=== PATIENT | female | born 1935 | race Caucasian/White ===

== ENCOUNTER 2016-03-28 08:45 | Day surgery (SDC) ==
[2015-12-02 07:55] VITALS: BMI 28.3
[2016-03-28] MEDS ORDERED: LIDOCAINE 1% 20 ML MDV ID ONE (09:05)
[2016-03-28] MEDS ORDERED: VERSED ONE (10:35)
[2016-03-28] MEDS ORDERED: DIPRIVAN 20 ML VIAL IVP ONE (10:35)
[2016-03-28 12:35] VITALS: BP 132/72; TEMP 98.5
--- NOTE | 2016-03-29 07:21 | OP ---
INDICATIONS FOR PROCEDURE: 81-year-old female presents for endoscopy. She has a history of Figueroa's. She is also scheduled for a screening colonoscopy. MEDICATIONS: SEE ANESTHESIA NOTES. PROCEDURE: 1. ENDOSCOPY, ESOPHAGEAL BIOPSY 2. COLONOSCOPY, SNARE POLYPECTOMY REPORT: The risks, benefits, alternatives and limitations were discussed in detail with the patient. Informed consent was obtained. After adequate sedation was achieved, the video endoscope was introduced in the posterior pharynx and esophagus under direct visual guidance. I easily advanced down to the second portion of the duodenum. I then slowly withdrew. The duodenal mucosa appeared unremarkable as did the duodenal bulb. The antrum and body were relatively unremarkable. The scope was retroflexed to look at the cardia and fundus, which was unremarkable. We see a small Schatzki's ring at the GE junction. The scope was anteflexed and withdrawn back through the esophagus. The GE junction was at the top of the gastric folds right at the diaphragmatic hiatus. I obtained four quadrant biopsies but there was no evidence of Figueroa's. The esophagus was otherwise unremarkable. The patient tolerated the procedure well with stable vital signs and pulse oximetry throughout. The patient's bed was turned. A digital rectal exam revealed good tone, no masses. The colonoscope was introduced in to the rectum and advanced under direct visual guidance to the cecum. The cecum was identified by the appendiceal orifice and IC valve. I then slowly withdrew the scope in a circumferential manner examining the mucosa quite carefully. I looked on the proximal and distal side of folds and flexures as best as possible. I was able to retroflex the scope in the right colon and left colon to increase visualization. At the proximal transverse colon, there are two 5 mm sessile polyps side by side. I removed these by snare technique. The remaining colon appeared unremarkable including on retroflex view of the anal canal. The prep was good. The withdrawal time was 11 minutes and 0 seconds. The patient tolerated the procedure well with stable vital signs and pulse oximetry throughout. IMPRESSION: 1. SCHATZKI'S RING 2. OTHERWISE NORMAL ENDOSCOPY WITH NO VISUAL EVIDENCE OF FIGUEROA'S 3. TWO (2) SMALL COLON POLYPS REMOVED RECOMMENDATIONS: 1. Reflux precautions. 2. Await esophageal biopsy results. If there is no evidence of atypia or dysplasia, I recommend no further surveillance endoscopy examinations given her advanced age and health. Recommend procedures only on an as needed basis. 3. Await colon polyp pathology. If it is benign, I also recommend future colonoscopies on an as needed only basis given her advanced age and health. 4. Will see her back in the office as needed. CC: DR. FLOYD SMITH
== END 2016-03-28 12:40 | disposition home or self-care (01) ==
LOC: SURG 08:45
PROVIDERS: ATTEND Internal Medicine Gastroenterology
DX: Z12.11 Encounter for screening for malignant neoplasm of colon (principal); D12.3 Benign neoplasm of transverse colon; D13.1 Benign neoplasm of stomach; K22.2 Esophageal obstruction; K29.60 Other gastritis without bleeding; Z87.09 Personal history of other diseases of the respiratory system

== ENCOUNTER 2016-05-12 08:05 | Emergency (ER) ==
[2016-05-12 08:13] VITALS: BP 173/85; TEMP 100.2; BMI 30.1
--- NOTE | 2016-05-12 08:48 | ED.PDOC ---
General ED Provider: Dr. HENRIQUE BARRIENTOS Chief Complaint: Fall Stated Complaint: Fell off of the bed while getting out of it, hurt left ribs and back Time Seen by Physician: 08:46 Mode of Arrival: Wheelchair Information Source: Patient Primary Care Provider: TARA QUESADA Nursing and Triage Documentation Reviewed and Agree: Yes Trauma/Injury Complaint Exam - Truncal Trauma Complaint/Exam Location of Pain: Reports: Left, Lower, Chest, Abdomen Symptoms Are: Still present Onset of Pain: Reports: Immediate Initial Severity: Moderate Current Severity: Moderate Mechanism: Reports: Blunt trauma Aggravating: Reports: Movement Alleviating: Reports: None Associated Signs and Symptoms: Reports: Chest pain. Denies: Short of air, Cough , Hematuria, Abdominal pain, Fever, Nausea, Vomiting Related Surgical History: Reports: None Vertebral Tenderness Present: Yes Vertebral Deformity Present: No Trachial Deviation Present: No JVD Present: No Crepitus Present: No Diminished Breath Sounds: No Muffled Heart Sounds Present: No Paradoxical Chest Wall Movement Present: No Abdominal Guarding Present: No Skin Findings: Present: Contusion (left lower rib) Differential Diagnoses: Chest Wall Abrasion, Rib Fracture, Lumbar Strain Review of Systems - Review Of Systems Constitutional: Reports: No symptoms Eyes: Reports: No symptoms Ears, Nose, Mouth, Throat: Reports: No symptoms Respiratory: Reports: No symptoms Cardiac: Reports: No symptoms GI: Reports: No symptoms : Reports: No symptoms Musculoskeletal: Reports: Joint pain, Joint swelling Skin: Reports: No symptoms Neurological: Reports: No symptoms Endocrine: Reports: No symptoms Hematologic/Lymphatic: Reports: No symptoms All Other Systems: Reviewed and Negative Past Medical History - Past Medical History Previously Healthy: No Endocrine: Reports: Dyslipidemia Cardiovascular: Reports: Hypertension, 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, 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) Respiratory: Reports: Other (SINUS CONGESTION- ALLERGIES) Hematological: Reports: None Gastrointestinal: Reports: GERD (BARRETTS), Other (agarwal's espophagus) Genitourinary: Reports: Unknown Neuro/Psych: Reports: Anxiety, Depression, Other (NEUROPATHY) Musculoskeletal: Reports: Arthritis, Other (hip bursitis) Cancer: Reports: Other (PolyPs out of neck of bladder) Last Menstrual Period: menopause Other Pertinent Past Medical History: hip bursitis - Surgical History General Surgical History: Reports: Tonsillectomy - Family History Family History: Reports: Other (EXHUSBAND WAS HEAVY SMOKER) - Social History Smoking Status: Never smoker Hx Substance Use: No Alcohol Screening: None Physical Exam - Physical Exam Appearance: Ill-appearing Eyes: DG, EOMI, Conjunctiva clear ENT: Ears normal, Nose normal, Oropharynx normal Respiratory: Airway patent, Breath sounds clear, Breath sounds equal, Respirations nonlabored Cardiovascular: RRR, Pulses normal, No rub, No murmur GI/: Soft, Tender (left lower rib) Musculoskeletal: Normal strength, ROM intact, No edema, No calf tenderness Skin: Warm, Dry, Normal color Neurological: Sensation intact, Motor intact, Reflexes intact, Cranial nerves intact, Alert, Oriented Psychiatric: Affect appropriate, Mood appropriate Interpretation - Radiology Interpretation Radiology Interpretation By: Radiologist Radiology Results: Negative Exam Interpreted: CT Scan Critical Care Note - Critical Care Note Total Time (mins): 0 Course - Course Hematology/Chemistry: 05/12/16 09:05 05/12/16 09:05 Orders, Labs, Meds: Lab Review 05/12/16 05/12/16 09:05 10:37 WBC 7.71 RBC 3.75 L Hgb 12.1 Hct 36.8 L MCV 98.1 MCH 32.3 H MCHC 32.9 RDW Coeff of Christopher 12.9 Plt Count 172 Immature Gran % (Auto) 0.4 Neut % (Auto) 61.9 Lymph % (Auto) 30.1 Kane % (Auto) 6.1 Eos % (Auto) 1.0 Baso % (Auto) 0.5 Immature Gran # (Auto) 0.0 Neut # 4.8 Lymph # 2.3 Kane # 0.5 Eos # 0.1 Baso # 0.0 Sodium 145 Potassium 5.8 H Chloride 107 Carbon Dioxide 27 Anion Gap 16.8 BUN 26 H Creatinine 1.52 H Estimated GFR (MDRD) 33.00 BUN/Creatinine Ratio 17.10 Glucose 108 Calcium 9.5 Total Bilirubin 0.68 AST 21 ALT 13 Alkaline Phosphatase 47 L Total Protein 7.0 Albumin 3.7 Globulin 3.3 Albumin/Globulin Ratio 1.12 Urine Color Yellow Urine Clarity Clear Urine pH 8.5 Ur Specific [place] 1.015 Urine Protein Trace Urine Glucose (UA) Negative Urine Ketones Negative Urine Blood Negative Urine Nitrite Negative Urine Bilirubin Negative Urine Urobilinogen 0.2 Ur Leukocyte Esterase Negative Urine Microscopic RBC 2-5 Urine Microscopic WBC 0-2 Ur Squamous Epith Cells 2-5 Orders Category Date Time Status CBC W/ AUTO DIFF Stat LAB 05/12/16 09:05 Completed CMP [COMPREHENSIVE METABOLIC PANEL] Stat LAB 05/12/16 09:05 Completed UA [URINALYSIS C & S IF INDICATED] Stat LAB 05/12/16 10:37 Completed Ketorolac Tromethamine [Toradol] MEDS 05/12/16 08:49 Discontinued 60 mg IM ONCE STA Sodium Polystyrene Sulfonate [Kayexalate Susp] MEDS 05/12/16 12:46 Discontinued 30 gm PO ONCE STA CT CHEST W/O CONTRAST Stat RADS 05/12/16 08:[address] HEAD W/O CONTRAST Stat RADS 05/12/16 08:[address] LUMBAR SPINE W/O CONTRAST Stat RADS 05/12/16 08:[address] THORACIC SPINE W/O CONTRAST Stat RADS 05/12/16 08:47 Completed Medications Discontinued Medications Generic Name Dose Route Start Last Admin Trade Name Freq PRN Reason Stop Dose Admin Ketorolac Tromethamine 60 mg 05/12/16 08:49 05/12/16 09:16 Toradol IM 05/12/16 08:50 60 mg ONCE STA Administration Sodium Polystyrene Sulfonate 30 gm 05/12/16 12:46 Kayexalate Susp PO 05/12/16 12:47 ONCE STA Vital Signs: Temp Pulse Resp BP Pulse Ox 05/12/16 08:05 100.2 F H 65 20 173/85 H 94 L Departure - Departure Time of Disposition: 13:18 Disposition: HOME SELF-CARE Discharge Problem: Falls Contusion of rib on left side Qualifiers: Encounter type: initial encounter Qualifier Code: (S20.212A) Contusion of left front wall of thorax, initial encounter Instructions: Rib Contusion (ED) Condition: Stable Pt referred to PMD for follow-up: Yes Additional Instructions: increase hydration f/u in office on sunday Allergies/Adverse Reactions: Allergies iodine Allergy (Verified 05/12/16 08:15) sulfamethoxazole [From Bactrim] Adverse Reaction (Verified 05/12/16 08:15) trimethoprim [From Bactrim] Adverse Reaction (Verified 05/12/16 08:15) Home Medications: Ambulatory Orders Aspirin [Aspirin Chewable] 81 mg PO DAILY 08/25/12 Clonazepam [Klonopin] 1 mg PO BID 08/25/12 Diltiazem HCl [Diltiazem 24Hr Cd] 240 mg PO DAILY 08/25/12 Esomeprazole Magnesium [Nexium] 40 mg PO DAILY 08/25/12 Ezetimibe [Zetia] 10 mg PO DAILY 08/25/12 Furosemide [Lasix Tab] 40 mg PO DAILY 08/25/12 Lisinopril [Zestril] 20 mg PO BID 08/25/12 Rosuvastatin Calcium [Crestor] 40 mg PO DAILY 05/03/14 Meloxicam [Mobic] 7.5 mg PO DAILY 01/04/15 [place]-3 Fatty Acids/Fish Oil [Fish Oil 1,000 mg Softgel] 1,200 mg PO DAILY 01/04 Amitrip HCl/Chlordiazepoxide [Chlordiazepo-Amitriptyl 5-12.5] 0.5 each PO BEDTIME 12/02/15 Calcium Carbonate/Vitamin D3 [Calcium 500-Vit D3 400 Tablet] 1 each PO DAILY 11/08 Potassium Chloride [K-Dur] 10 meq PO BEDTIME 03/28/16 Disposition Discussed With: Patient
[2016-05-12] MEDS ORDERED: TORADOL IM STA (08:49)
[2016-05-12 09:12] LABS: BASOPHILS % (AUTO) 0.5 % (0.0-3.0); EOSINOPHILS # (AUTO) 0.1 K/ul (0.0-0.7); HEMATOCRIT 36.8 % (37.0-47.0); HEMOGLOBIN 12.1 g/dl (12.0-16.0); IMMATURE GRANULOCYTE % (AUTO) 0.4 % (0.0-5.0); LYMPHOCYTES # (AUTO) 2.3 K/uL (0.60-3.4); LYMPHOCYTES % (AUTO) 30.1 (10.0-50.0); MEAN CORPUSCULAR HEMOGLOBIN 32.3 pg (27.0-31.0); MEAN CORPUSCULAR HGB CONC 32.9 (31.8-35.4); MEAN CORPUSCULAR VOLUME 98.1 fl (81.0-99.0); MONOCYTES # (AUTO) 0.5 K/uL (0.4-2.0); MONOCYTES % (AUTO) 6.1 (0-10); NEUTROPHILS # (AUTO) 4.8 K/ul (2.0-6.9); NEUTROPHILS % (AUTO) 61.9; PLATELET COUNT 172 10^3/uL (140-440); RED BLOOD COUNT 3.75 10^6/ul (4.20-5.40); WHITE BLOOD COUNT 7.71 K/ul (4.6-10.2)
--- NOTE | 2016-05-12 09:30 | CT ---
EXAM: CT BRAIN HISTORY: Injury, pain TECHNIQUE: CT brain without intravenous contrast. 5-mm axial sections with Reformations. COMPARISON: 10/19/2008 FINDINGS: Brain is unremarkable without distinct evidence of hemorrhage or large vessel distribution recent ischemic infarction. There is no suggestion of acute hydrocephalus or subdural fluid collection. N o mass or mass effect. Cranium is within normal limits. Mastoid air cells are aerated. The visualized paranasal sinuses are clear. IMPRESSION: No acute intracranial process. No skull fracture.
[2016-05-12 09:32] LABS: ALBUMIN 3.7 g/dL (3.4-5.0); ALBUMIN/GLOBULIN RATIO 1.12; ANION GAP 16.8; BILIRUBIN,TOTAL 0.68 mg/dL (0.00-1.20); BUN/CREATININE RATIO 17.1; CALCIUM 9.5 mg/dL (8.2-10.2); CREATININE 1.52 mg/dL (0.60-1.30); POTASSIUM 5.8 mmol/L (3.5-5.10)
--- NOTE | 2016-05-12 09:36 | CT ---
EXAM: CT thoracic spine without contrast HISTORY: Injury and pain COMPARISON: None TECHNIQUE: CT thoracic spine performed without intravenous contrast. Coronal and sagittal reformat brigida images obtained. FINDINGS: Bones appear demineralized. Vertebral bodies normal in height. No fracture. No subluxa tion. Mild chronic discogenic degenerative disease with mild multilevel intervertebral space narrow ing and marginal osteophyte formation. Please see separate port CT lumbar spine in the degenerative changes in the lumbar spine. Central canal grossly patent. Please see separate report CT chest. IMPRESSION: 1. No fracture or subluxation. 2. Chronic discogenic degenerative disease. 3. Bones appear demineralized.
--- NOTE | 2016-05-12 09:38 | CT ---
EXAM: CT LUMBAR SPINE HISTORY: Injury, pain TECHNIQUE: CT lumbar spine without contrast. 3-mm axial sections. Coronal and sagittal reformatio ns. COMPARISON: No comparison CT lumbar spine. FINDINGS: Bones appear demineralized. There is moderate to severe degenerative disc and facet disease diffuse ly, most apparent at L2/L3 where there is endplate sclerosis and loss of intervertebral disc space. Minimal erosions of the endplates are seen at this level. These degenerative changes lead to multilevel central and neural foraminal stenosis with the central canal stenosis most apparent at L2/L3, L3/L4 and L4/L5. The L4/L5 level has severe stenosis of the central canal and left neural foramen. No loss of vertebral body height or acute fracture is identified. There is scoliosis convex to the left. Sacroiliac joints are intact. No paraspinal fluid collection is identified. Incidental note of moderate atherosclerotic disease. IMPRESSION: 1. No acute fracture or subluxation. 2. Severe degenerative disc and facet disease. 3. Additional findings at the L2/L3 interspace as described above (first paragraph of report) are a lso likely related to the longstanding degenerative process. Correlate with patient history and phy sical exam for any evidence of osteomyelitis or diskitis. If indicated, MRI correlation can be cons idered.
--- NOTE | 2016-05-12 09:39 | CT ---
EXAM: CT chest without contrast HISTORY: Injury COMPARISON: CT thoracic spine same day and Chest x-ray 12/02/[address] abdomen 01/26/2014 TECHNIQUE: Serial axial images of the chest were obtained from the lung apices to the upper abdomen without contrast. These were viewed in multiple planes. FINDINGS: The thyroid is normal. The ascending aorta is ectatic with mild enlargement of the pulmo nary arteries. There are coronary arterial calcifications present. The heart is normal in size wit hout pericardial effusion. There are no pathologically enlarged mediastinal or hilar lymph nodes. There is no pneumothorax or pleural effusion. There is a right perifissural 0.3 cm ground-glass nod ule on image 24. There is lobular nodularity in the right lower lobe measuring 0.6 cm in diameter. This is seen on image 35 axially. No additional nodule, consolidation or ground-glass is present. The airways are patent. The osseous structures demonstrate no rib fracture or compression deformity and degenerative disease . Thoracic spine is better evaluated on same day CT spine. Soft tissues in the upper abdomen are b keny visualized on same day CT abdomen pelvis. IMPRESSION: 1. No acute abnormality or traumatic injury/fracture of the chest. 2. Mild ascending aortic ectasia and enlarged pulmonary arteries. 3. Pulmonary nodules as described above with the largest in the right lower lobe measuring 0.6 cm i n diameter was not visualized on prior exam 2013. CT chest is recommended in 6 - 12 months to [facility] evaluate.
[2016-05-12 10:41] LABS: BILIRUBIN,URINE Negative (NEGATIVE); KETONES,URINE Negative (NEGATIVE); LEUKOCYTE ESTERASE ,URINE Negative (NEGATIVE); NITRITE,URINE Negative (NEGATIVE); PH,URINE 8.5 (5-9); PROTEIN,URINE Trace (NEGATIVE); URINE, BLOOD Negative (NEGATIVE)
[2016-05-12 10:45] LABS: ADD URINE MICROSCOPIC YES
[2016-05-12] MEDS ORDERED: KAYEXALATE SUSP PO STA (12:46)
== END 2016-05-12 13:44 | disposition home or self-care (01) ==
LOC: ED 08:05
DX: S20.212A Contusion of left front wall of thorax, initial encounter (principal); M54.9 Dorsalgia, unspecified; R10.9 Unspecified abdominal pain; M25.50 Pain in unspecified joint; M25.40 Effusion, unspecified joint; I10 Essential (primary) hypertension; Z79.899 Other long term (current) drug therapy; W06.XXXA Fall from bed, initial encounter
CPT/HCPCS: 36415; 80053; 81001; 85025; 96372; 99283

== ENCOUNTER 2016-05-15 11:04 | Outpatient (CLI) ==
[2012-08-28 04:01] VITALS: TEMP 97.7
[2016-05-15 11:58] LABS: ALBUMIN 3.6 g/dL (3.4-5.0); ALBUMIN/GLOBULIN RATIO 1.2; BILIRUBIN,TOTAL 0.61 mg/dL (0.00-1.20); BUN/CREATININE RATIO 15.43; CALCIUM 8.6 mg/dL (8.2-10.2); CREATININE 1.49 mg/dL (0.60-1.30); TOTAL PROTEIN 6.6 g/dL (5.8-8.1)
== END 2016-05-15 11:05 | disposition home or self-care (01) ==
LOC: LAB 11:04
PROVIDERS: ATTEND Emergency Medicine
DX: E87.5 Hyperkalemia (principal); N18.9 Chronic kidney disease, unspecified
CPT/HCPCS: 36415; 80053

== ENCOUNTER 2016-11-29 10:47 | Observation (INO) ==
[2016-11-29] MEDS ORDERED: MORPHINE 4 MG/ML SYRINGE IVP PRN (11:03)
[2016-11-29] MEDS ORDERED: TYLENOL PO PRN (11:03)
[2016-11-29] MEDS ORDERED: ATROPINE SULFATE PFS IVP PRN (11:03)
[2016-11-29] MEDS ORDERED: VISTARIL INJ IM PRN (11:03)
[2016-11-29] MEDS ORDERED: NITROSTAT SL PRN (11:03)
[2016-11-29 11:23] VITALS: BMI 27.6
[2016-11-29 11:40] LABS: BASOPHILS % (AUTO) 0.3 % (0.0-3.0); EOSINOPHILS # (AUTO) 0.1 K/ul (0.0-0.7); EOSINOPHILS % (AUTO) 1.4 % (0.0-7.0); HEMATOCRIT 37.2 % (37.0-47.0); HEMOGLOBIN 12.5 g/dl (12.0-16.0); IMMATURE GRANULOCYTE % (AUTO) 0.3 % (0.0-5.0); LYMPHOCYTES # (AUTO) 2.7 K/uL (0.60-3.4); LYMPHOCYTES % (AUTO) 38.9 (10.0-50.0); MEAN CORPUSCULAR HEMOGLOBIN 33.1 pg (27.0-31.0); MEAN CORPUSCULAR HGB CONC 33.6 (31.8-35.4); MEAN CORPUSCULAR VOLUME 98.4 fl (81.0-99.0); MONOCYTES # (AUTO) 0.6 K/uL (0.4-2.0); MONOCYTES % (AUTO) 8.3 (0-10); NEUTROPHILS # (AUTO) 3.5 K/ul (2.0-6.9); NEUTROPHILS % (AUTO) 50.8; PLATELET COUNT 218 10^3/uL (140-440); RED BLOOD COUNT 3.78 10^6/ul (4.20-5.40); WHITE BLOOD COUNT 6.96 K/ul (4.6-10.2)
[2016-11-29 11:50] LABS: ABG BASE EXCESS 2 (-2.0-2.0); ABG HCO3 26.7 (22.0-26.0); ABG PCO2 40.3 mmHg (35-45); ABG PH 7.429 (7.35-7.45); ABG TCO2 28 (22.0-28.0)
[2016-11-29] MEDS ORDERED: NON-FORMULARY MEDICATION (Omega-3 Fatty Acids/Fish Oil [Fish Oil 1,000 Mg Softgel] 1,000 M PO SCH ×22 (12:00)
[2016-11-29 12:27] LABS: ALBUMIN 3.6 g/dL (3.4-5.0); ALBUMIN/GLOBULIN RATIO 1.06; ANION GAP 13.9; BILIRUBIN,TOTAL 0.61 mg/dL (0.00-1.20); BUN/CREATININE RATIO 19.16; CALCIUM 9.4 mg/dL (8.2-10.2); CREATININE 1.2 mg/dL (0.60-1.30); POTASSIUM 3.9 mmol/L (3.5-5.10); TROPONIN I 0.013 ng/ml (0.0000-0.4000)
[2016-11-29] MEDS ORDERED: CALCIUM 500 + VIT D 200 MG TABLET PO SCH (12:30)
[2016-11-29] MEDS ORDERED: OMEGA-3 FISH OIL PO SCH (12:30)
--- NOTE | 2016-11-29 14:26 | DI ---
EXAM: PA and lateral views of the chest HISTORY: Cough. COMPARISON: Chest x-ray 12/02/[address] chest 05/12/2016 FINDINGS: The cardiomediastinal silhouette is normal. There is no pneumothorax or pleural effusion . There is no consolidation, nodule or mass. The osseous structures are unremarkable. IMPRESSION: No acute cardiopulmonary process or consolidation
--- NOTE | 2016-11-29 15:12 | US ---
EXAM: Ultrasound bilateral carotid duplex. HISTORY: Syncope. COMPARISON: 10/27/2015. TECHNIQUE: Multiple ferreira scale and color Doppler images were obtained. FINDINGS: Please note that estimates of internal carotid artery stenoses are based upon NASCET tianna joyce. Right carotid: No significant plaquing identified. Peak systolic velocity measurement in the right internal carotid artery is 0.7 meters per second. Right internal to common carotid artery peak sys tolic velocity ratio measures 1.8. End diastolic velocity measurement in the right internal carotid artery is 0.1 meters per second. Flow in the right vertebral artery is not identified. Left carotid: Mild plaquing noted without 50% or greater stenosis. Peak systolic velocity measurem ent in the left internal carotid artery is 0.9 meters per second. Left internal to common carotid a rtery peak systolic velocity ratio measures 9.4. End diastolic velocity measurement in the left int ernal carotid artery measures 0.3 meters per second. Flow in the left vertebral artery is antegrade . IMPRESSION: 1. No evidence for 50% or greater stenosis in the right or left internal carotid artery. 2. Nonvisualized right vertebral artery which could be technical. Occlusion or stenosis not exclud ed. This finding is stable. 3. Antegrade flow in the left vertebral artery..
--- NOTE | 2016-11-29 15:15 | DI ---
EXAM: Three views of the right lateral ribs HISTORY: Fall with right-sided rib pain. COMPARISON: Chest x-ray 11/23/2007 FINDINGS: There is no cortical irregularity or displaced fracture of the right ribs. The adjacent s oft tissues are unremarkable. IMPRESSION: No visualized rib fracture.
--- NOTE | 2016-11-29 16:18 | MRI ---
EXAM: Brain MRI with and without contrast. HISTORY: Syncope. COMPARISON: Head CT 05/12/2016 and brain MRI 10/27/2015. TECHNIQUE: Multiplanar, multisequence MR images were acquired of the brain before and after adminis tration of intravenous contrast. FINDINGS: The midline structures are central and the craniocervical junction is unremarkable. The ventricles, sulci and cisterns are prominent compatible with age related involutional changes. Ther e are no abnormal extra-axial fluid collections. The brain parenchyma has no diffusion restriction to suggest acute hypoperfusion or infarction. The re are small scattered T2 hyperintensities in the supratentorial white matter consistent with minor leukomalacia. There is no abnormal dark gradient echo signal. After administration of contrast, no enhancing lesions are identified. The corpus callosum has a normal configuration. The pituitary g land is unremarkable. There are no intraorbital masses. There has been previous lens surgery bilaterally. There is exten sive hyperostosis frontalis interna. There is fatty infiltration of the parotid glands bilaterally. Rightward nasal septal deviation is present. The frontal sinus is hypoplastic. Paranasal sinuses are otherwise unremarkable. There is minor scattered mucosal thickening in some of the right mastoid air cells. There is no abnormal co ntrast enhancement in the internal auditory canals labyrinthine structures. Flow voids are present in the major intracranial arteries and dural venous sinuses. The superior sa gittal sinus preferentially drains into the right transverse dural sinus, sigmoid sinus and internal jugular vein which are dominant to the left. This is a common normal variant. There is upper cervical hypertrophic facet arthropathy. IMPRESSION: 1. No intracranial mass, hemorrhage or acute cerebral infarct. 2. Age related involutional changes and minor chronic ischemic small vessel disease. 3. Extensive benign hyperostosis frontalis interna.
[2016-11-29 19:40] LABS: TROPONIN I 0.025 ng/ml (0.0000-0.4000)
[2016-11-29] MEDS: ZESTRIL PO SCH (20:38)
[2016-11-29] MEDS: KLONOPIN PO SCH (20:39)
[2016-11-29 20:55] LABS: BILIRUBIN,URINE Negative (NEGATIVE); KETONES,URINE Negative (NEGATIVE); LEUKOCYTE ESTERASE ,URINE Trace (NEGATIVE); NITRITE,URINE Negative (NEGATIVE); PROTEIN,URINE Trace (NEGATIVE); URINE, BLOOD Trace-intact (NEGATIVE)
[2016-11-29] MEDS ORDERED: CRESTOR PO SCH (21:00)
[2016-11-29] MEDS ORDERED: ELAVIL PO SCH (21:00)
[2016-11-29] MEDS ORDERED: MOTRIN PO ONE (21:00)
[2016-11-29] MEDS ORDERED: NON-FORMULARY MEDICATION (Rosuvastatin Calcium [Crestor] 40 MG) PO SCH (21:00)
[2016-11-29 21:08] LABS: ADD URINE MICROSCOPIC YES
[2016-11-30 05:47] LABS: BASOPHILS % (AUTO) 0.5 % (0.0-3.0); EOSINOPHILS # (AUTO) 0.1 K/ul (0.0-0.7); EOSINOPHILS % (AUTO) 1.8 % (0.0-7.0); HEMATOCRIT 34.1 % (37.0-47.0); HEMOGLOBIN 11.4 g/dl (12.0-16.0); IMMATURE GRANULOCYTE % (AUTO) 0.3 % (0.0-5.0); LYMPHOCYTES # (AUTO) 2.6 K/uL (0.60-3.4); LYMPHOCYTES % (AUTO) 40.7 (10.0-50.0); MEAN CORPUSCULAR HEMOGLOBIN 33.1 pg (27.0-31.0); MEAN CORPUSCULAR HGB CONC 33.4 (31.8-35.4); MEAN CORPUSCULAR VOLUME 99.1 fl (81.0-99.0); MONOCYTES # (AUTO) 0.7 K/uL (0.4-2.0); MONOCYTES % (AUTO) 10.3 (0-10); NEUTROPHILS % (AUTO) 46.4; PLATELET COUNT 188 10^3/uL (140-440); RED BLOOD COUNT 3.44 10^6/ul (4.20-5.40); WHITE BLOOD COUNT 6.49 K/ul (4.6-10.2)
[2016-11-30 06:08] LABS: ALBUMIN/GLOBULIN RATIO 1.07; ANION GAP 16.9; BILIRUBIN,TOTAL 0.43 mg/dL (0.00-1.20); BUN/CREATININE RATIO 21.09; CALCIUM 8.9 mg/dL (8.2-10.2); CREATININE 1.28 mg/dL (0.60-1.30); POTASSIUM 3.9 mmol/L (3.5-5.10); TOTAL PROTEIN 5.8 g/dL (5.8-8.1)
[2016-11-30] MEDS ORDERED: LASIX TAB PO SCH (06:30)
[2016-11-30] MEDS ORDERED: PROTONIX PO SCH (06:30)
[2016-11-30] MEDS ORDERED: ASPIRIN EC PO SCH (08:00)
[2016-11-30] MEDS ORDERED: MOTRIN PO PRN (08:33)
[2016-11-30] MEDS ORDERED: ASPIRIN CHEWABLE PO SCH (09:00)
[2016-11-30] MEDS ORDERED: CARDIZEM CD PO SCH (09:00)
[2016-11-30] MEDS ORDERED: NON-FORMULARY MEDICATION (Calcium Carbonate/Vitamin D3 [Calcium 500-Vit D3 400 Tablet] 1 E PO SCH (09:00)
[2016-11-30] MEDS ORDERED: ZETIA PO SCH (09:00)
[2016-11-30] MEDS ORDERED: NON-FORMULARY MEDICATION (Esomeprazole Magnesium [Nexium] 40 MG) PO SCH ×22 (09:00)
[2016-11-30] MEDS ORDERED: NON-FORMULARY MEDICATION (Diltiazem Hcl [Diltiazem 24hr Cd] 240 MG) PO SCH ×22 (09:00)
[2016-11-30] MEDS ORDERED: NON-FORMULARY MEDICATION PO SCH ×44 (10:15→21:00)
--- NOTE | 2016-11-30 10:34 | PCM.PROG ---
Attending Provider: ATTENDING PROVIDER: Dr. TARA QUESADA DATE OF SERVICE: 11/30/16 SUBJECTIVE: This 81 year old WHITE/ F was hospitalized 11/29/16. The patient is seen with Jennifer, Nurse Practitioner. The patient is lying in bed, alert. She says she has been feeling well but has a headache this morning. Telemetry shows lowest kelsea to be 52 beats/min. REVIEW OF SYSTEMS: CONSTITUTIONAL: No night sweats. No fatigue, malaise, lethargy. No fever or chills. HEENT: Eyes: No visual changes. No eye pain. No eye discharge. ENT: No runny nose. No epistaxis. No sinus pain. No odynophagia. No congestion. RESPIRATORY: No cough, no congestion. No hemoptysis. No shortness of breath. CARDIOVASCULAR: No angina symptoms. No CHF symptoms. No atypical chest pain for CAD. No palpitations. No orthopnea.. GASTROINTESTINAL: No abdominal pain. No nausea or vomiting. No diarrhea or constipation. No hematemesis. No hematochezia. GENITOURINARY: No urgency. No frequency. No dysuria. No hematuria. No obstructive symptoms. No discharge. No pain. No significant abnormal bleeding. MUSCULOSKELETAL: No musculoskeletal pain; no joint swelling. NEUROLOGICAL: Positive for headache. Awake, alert, oriented to time, place and person. No neck pain. No syncope. No seizures. No dizziness. PSYCHIATRIC: Not anxious. No depression. No suicidal thoughts. No homicidal thoughts. SKIN: No rash. No lesions. No wounds. ENDOCRINE: No unexplained weight loss. No weight gain. HEMATOLOGIC/LYMPHATIC: No anemia. No purpura. No petechiae. No prolonged or excessive bleeding. No palpable lymph nodes. PHYSICAL EXAMINATION: GENERAL: The patient is awake, alert and oriented, lying in bed in no distress. VITAL SIGNS: Temperature 96.2 F, Pulse 52, Respiratory Rate 16, BP 149/73, Pulse Ox 98% HEENT: Head normocephalic, atraumatic. Eyes: Extraocular muscles are intact. Pupils are equal, round and reactive to light and accommodation. Ears: No lesions. Nose appeared normal. Throat: No exudate or erythema. NECK: Supple. No JVD, no carotid bruit. No lymphadenopathy or thyromegaly. LUNGS: Diminished breath sounds, clear to auscultation. Percussion note normal. Chest symmetrical. HEART: S1, S2, no S3. No murmurs. No cyanosis or clubbing. No ascites. Pulses: Dorsalis pedis and posterior tibial pulses +1 to +2 both sides. ABDOMEN: Soft. Non-tender. Bowel sounds active. No CVA tenderness. No mass felt. EXTREMITIES: No edema. Full range of motion of all extremities, equal. NEUROLOGIC: No focal deficit. Cranial nerves II through XII are grossly intact. Positive for headache. No double vision or headache. SKIN: Not dry. Intact. Turgor-normal. LYMPHATIC: No palpable lymph nodes/no lymphedema. MUSCULOSKELETAL: Normal joints with no swelling. Muscle tone is normal. LAB REVIEW: 11/30/16 05:15 11/30/16 05:15 11/30/16 05:15: WBC 6.49, RBC 3.44 L, Hgb 11.4 L, Hct 34.1 L, MCV 99.1 H, MCH 33.1 H, MCHC 33.4, RDW Coeff of Christopher 12.7, Plt Count 188, Immature Gran % (Auto) 0.3, Neut % (Auto) 46.4, Lymph % (Auto) 40.7, [place] % (Auto) 10.3 H, Eos % (Auto ) 1.8, Baso % (Auto) 0.5, Immature Gran # (Auto) 0.0, Neut # 3.0, Lymph # 2.6, [place] # 0.7, Eos # 0.1, Baso # 0.0, Sodium 145, Potassium 3.9, Chloride 103, Carbon Dioxide 29, Anion Gap 16.9, BUN 27 H, Creatinine 1.28, Estimated GFR ( MDRD) 40.00, BUN/Creatinine Ratio 21.09, Glucose 100, Calcium 8.9, Total Bilirubin 0.43, AST 13 L, ALT 13, Alkaline Phosphatase 50 L, Total Protein 5.8, Albumin 3.0 L, Globulin 2.8, Albumin/Globulin Ratio 1.07 11/29/16 20:00: Urine Color Yellow, Urine Clarity Clear, Urine pH 7.0, Ur Specific [place] 1.015, Urine Protein Trace, Urine Glucose (UA) Negative, Urine Ketones Negative, Urine Blood Trace-intact, Urine Nitrite Negative, Urine Bilirubin Negative, Urine Urobilinogen 4.0, Ur Leukocyte Esterase Trace, Urine Microscopic RBC 2-5, Urine Microscopic WBC 0-2, Ur Squamous Epith Cells 5-10 11/29/16 19:10: Total Creatine Kinase 106, Myoglobin 57, Troponin I 0.0250 11/29/16 11:41: Puncture Site Rrad, O2 Saturation 93.0 L, ABG pH 7.429, ABG pCO2 40.3, ABG pO2 64.0 L, ABG HCO3 26.7 H, ABG Total CO2 28, ABG Base Excess 2 , Ziyad Test +, FiO2 % 21.0 11/29/16 11:32: WBC 6.96, RBC 3.78 L, Hgb 12.5, Hct 37.2, MCV 98.4, MCH 33.1 H, MCHC 33.6, RDW Coeff of Christopher 12.8, Plt Count 218, Immature Gran % (Auto) 0.3, Neut % (Auto) 50.8, Lymph % (Auto) 38.9, [place] % (Auto) 8.3, Eos % (Auto) 1.4, Baso % (Auto) 0.3, Immature Gran # (Auto) 0.0, Neut # 3.5, Lymph # 2.7, [place] # 0.6, Eos # 0.1, Baso # 0.0, Sodium 142, Potassium 3.9, Chloride 104, Carbon Dioxide 28, Anion Gap 13.9, BUN 23 H, Creatinine 1.20, Estimated GFR (MDRD) 43.00, BUN/Creatinine Ratio 19.16, Glucose 102, Calcium 9.4, Total Bilirubin 0.61, AST 17, ALT 17, Alkaline Phosphatase 63, Total Creatine Kinase 101, Myoglobin 68, Troponin I 0.0130, Total Protein 7.0, Albumin 3.6, Globulin 3.4, Albumin/Globulin Ratio 1.06, TSH 1.602 ASSESSMENT: 1. Falls 2. Syncope 3. Headache PLAN: 1. Echocardiogram today 2. Admit to observation 3. Will start Flonase two sprays daily Plan and coordination of the patient's care discussed in the presence of Gauge Machine Operator and nurse. CONDITION: Stable SCRIBED BY: KT VEGA Pipe Or Steam Fitter Furnace Installer scribed while in presence of service performed by Dr. TARA QUESADA/JENNIFER DAVISON APRN on 11/30/16 ([id number])
[2016-11-30] MEDS: FLONASE NAS SCH (11:05)
[2016-11-30] MEDS: NON-FORMULARY MEDICATION PO SCH ×88 (11:08→20:14)
[2016-11-30] MEDS: OMEGA-3 FISH OIL PO SCH (11:08)
[2016-11-30] MEDS: ZETIA PO SCH (11:09)
[2016-11-30] MEDS: KLONOPIN PO SCH ×3 (11:09→20:14)
[2016-11-30] MEDS: LASIX TAB PO SCH (11:11)
[2016-11-30] MEDS: ASPIRIN EC PO SCH (11:11)
[2016-11-30] MEDS: ZESTRIL PO SCH (11:19)
--- NOTE | 2016-11-30 11:23 | HP ---
DATE OF SERVICE: 11/29/16 HISTORY OF PRESENT ILLNESS: This is an 81-year-old female who presented after falling twice in the past five days. The first time she missed a step and hit her head; right side sore. Second time three days ago, fell up incline. No dizziness; (no cause known) knees gave away. No loss of consciousness. PAST MEDICAL HISTORY: 1. Hypertension 2. GERD 3. Generalized anxiety disorder 4. Depression 5. Chronic kidney disease, Stage 3 6. Osteoporosis 7. Lung nodule 8. Cardiac catheterization 9. Menstrual history - 33 years ago PAST SURGICAL HISTORY: Bladder polyps REVIEW OF SYSTEMS: CONSTITUTIONAL: No fever, no fatigue. HEENT: No sinus drainage, no sore throat. RESPIRATORY: No cough, no congestion. CARDIOVASCULAR: No atypical chest pain for coronary artery disease. No angina , CHF symptoms, palpitations or shortness of breath. GASTROINTESTINAL: No melena or abdominal pain. No GERD. GENITOURINARY: No hematuria, no polyuria. TANK TENDER: Positive for headache. No blackout, no dizziness, no double vision. Gait - falls. MUSCULOSKELETAL: Osteoarthritis pain; no joint swelling. ENDOCRINE: No weight loss, no weight gain. SKIN: Not dry, no rash. PSYCHIATRIC: Anxious. No depression, no suicidal thoughts, no homicidal thoughts. SOCIAL HISTORY: Nonsmoker. . No alcohol use. FAMILY HISTORY: Father is , liver disease. Mother , coronary artery disease. Brother , coronary artery disease. MEDICATIONS: (HOME) 1. Lasix 40 mg p.o. daily 2. Klonopin 0.5 mg p.o. b.i.d. 3. Zestril 20 mg p.o. b.i.d. 4. Zetia 10 mg p.o. daily 5. Diltiazem 240 mg p.o. daily 6. Nexium 40 mg p.o. daily 7. Aspirin 81 mg p.o. daily 8. Crestor 40 mg p.o. bedtime 9. [place] 3 Fatty Acids/Fish Oil 1,000 mg p.o. 1200 10. Mobic 7.5 mg p.o. MoWeFri 11. Calcium Carbonate/Vitamin D3 one each p.o. daily 12. Amitriptyline 25 mg p.o. bedtime ALLERGIES: IODINE, CIPRO PHYSICAL EXAMINATION: V/S: Pulse 96, BP 138/70, 02 sat 96%. Height 5'6". Weight 171.0. BMI 27.6. GENERAL APPEARANCE: Oriented times three. Bruising right eye. HEENT: Normal. NECK: No JVP, no bruits. RESPIRATORY: Decreased breath sounds, clear. CARDIOVASCULAR: S1, S2, no S3, no murmurs. No cyanosis, clubbing. No ascites. GI/ABDOMEN: No tenderness. Bowel sounds are active. EXTREMITIES: No edema, pulses +1, equal. TANK TENDER: Deep tendon reflexes, sensory, motor and gait all normal. RECTAL/PELVIC: Colonoscopy 04/11 Dr. Villarreal endoscopy. Pelvic: Advised yearly. Refused mammogram. RADIOLOGICAL FINDINGS: Chest x-ray is normal. Ultrasound of carotids bilaterally - no evidence for 50 % or greater stenosis in the right or left internal carotid artery. Nonvisualized right vertebral artery which could be technical occlusion or stenosis not excluded however this finding is stable. Antegrade flow in left vertebral artery. x-rays of the ribs show no visualized rib fracture. LABS: White count 6.96, red blood cells 3.78, hemoglobin 12.5, hematocrit 37.2, platelets 218. Sodium 142, potassium 3.9, BUN 23, creatinine 1.2, glucose 102. GFR 43. Calcium 9.4. AST 17, ALT 17, troponin 0.01. Myoglobin 68. Protein 7, albumin 3.6, globulin 3.4, TSH 1.6, alkaline phosphatase 63. ABG's shows p02 of 64, pc02 of 40, pH 7.42 with 93% saturation. Hemoglobin is 12.5, hematocrit 37, WBC 6,900 with normal differential. Creatinine 1.2, BUN 23, liver profile negative. Potassium 3.9. ABGs: FI02 21, pH 7.429, pc02 40, p02 64, base excess of 2 with HC03 26.7, TC02 28, 02 sat 93. ASSESSMENT: 1. SYNCOPE ??/FALLS 2. HYPERTENSION 3. GERD 4. GENERALIZED ANXIETY DISORDER 5. DEPRESSION 6. CHRONIC KIDNEY DISEASE, STAGE 3 7. OSTEOPOROSIS, PR[place] 8. TIA 9. CAROTID STENOSIS, DR. IYER 10. 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 CARDIAC CATHETERIZATION 1991 PLAN: 1. Admit with routine telemetry orders 2. Continue all home medications 3. Carotid scan 4. MRI of brain with contrast (low ionic) 5. TSH 6. Echocardiogram 2D 'M' Mode 7. X-ray right ribs EDUCATION: DASH diet discussed. Blood pressure goal less than 135/85, BMI 27 (ideal 23+2) , weight loss advised. CKD, NSAIDs discussed. TIME SPENT: More than 70 minutes. MTDD
[2016-11-30] MEDS ORDERED: ELAVIL PO SCH (21:00)
[2016-12-01 04:55] LABS: BASOPHILS % (AUTO) 0.5 % (0.0-3.0); EOSINOPHILS # (AUTO) 0.1 K/ul (0.0-0.7); EOSINOPHILS % (AUTO) 2.2 % (0.0-7.0); HEMATOCRIT 35.3 % (37.0-47.0); HEMOGLOBIN 11.9 g/dl (12.0-16.0); IMMATURE GRANULOCYTE % (AUTO) 0.3 % (0.0-5.0); LYMPHOCYTES # (AUTO) 2.4 K/uL (0.60-3.4); LYMPHOCYTES % (AUTO) 39.2 (10.0-50.0); MEAN CORPUSCULAR HEMOGLOBIN 33.1 pg (27.0-31.0); MEAN CORPUSCULAR HGB CONC 33.7 (31.8-35.4); MEAN CORPUSCULAR VOLUME 98.3 fl (81.0-99.0); MONOCYTES # (AUTO) 0.6 K/uL (0.4-2.0); MONOCYTES % (AUTO) 9.8 (0-10); NEUTROPHILS # (AUTO) 2.9 K/ul (2.0-6.9); PLATELET COUNT 192 10^3/uL (140-440); RED BLOOD COUNT 3.59 10^6/ul (4.20-5.40); WHITE BLOOD COUNT 6.02 K/ul (4.6-10.2)
[2016-12-01 05:20] LABS: ANION GAP 14.8; BILIRUBIN,TOTAL 0.38 mg/dL (0.00-1.20); BUN/CREATININE RATIO 24.19; CALCIUM 9.1 mg/dL (8.2-10.2); CREATININE 1.24 mg/dL (0.60-1.30); POTASSIUM 3.8 mmol/L (3.5-5.10)
[2016-12-01] MEDS: LASIX TAB PO SCH (05:36)
[2016-12-01] MEDS: NON-FORMULARY MEDICATION PO SCH ×88 (05:36→14:05)
[2016-12-01] MEDS ORDERED: MOBIC PO SCH (08:00)
--- NOTE | 2016-12-01 09:37 | PCM.PROG ---
Attending Provider: ATTENDING PROVIDER: Dr. TARA QUESADA DATE OF SERVICE: 12/01/16 SUBJECTIVE: This 81 year old WHITE/ F was hospitalized 11/29/16. The patient is seen with Jennifer, Nurse Practitioner. She is sitting on the side of the bed, is alert. She is ready to go home, has been up and about. The patient is encouraged to use a walker at home. REVIEW OF SYSTEMS: CONSTITUTIONAL: No night sweats. No fatigue, malaise, lethargy. No fever or chills. HEENT: Eyes: No visual changes. No eye pain. No eye discharge. ENT: No runny nose. No epistaxis. No sinus pain. No odynophagia. No congestion. RESPIRATORY: No cough, no congestion. No hemoptysis. No shortness of breath. CARDIOVASCULAR: No angina symptoms. No CHF symptoms. No atypical chest pain for CAD. No palpitations. No orthopnea.. GASTROINTESTINAL: No abdominal pain. No nausea or vomiting. No diarrhea or constipation. No hematemesis. No hematochezia. GENITOURINARY: No urgency. No frequency. No dysuria. No hematuria. No obstructive symptoms. No discharge. No pain. No significant abnormal bleeding. MUSCULOSKELETAL: No musculoskeletal pain; no joint swelling. NEUROLOGICAL: Awake, alert, oriented to time, place and person. No headache. No neck pain. No syncope. No seizures. No dizziness. PSYCHIATRIC: Not anxious. No depression. No suicidal thoughts. No homicidal thoughts. SKIN: No rash. No lesions. No wounds. ENDOCRINE: No unexplained weight loss. No weight gain. HEMATOLOGIC/LYMPHATIC: No anemia. No purpura. No petechiae. No prolonged or excessive bleeding. No palpable lymph nodes. PHYSICAL EXAMINATION: GENERAL: The patient is awake, alert and oriented, sitting in bed in no distress. VITAL SIGNS: Temperature 97.0 F, Pulse 59, Respiratory Rate 14, BP 133/70, Pulse Ox 94% HEENT: Head normocephalic, atraumatic. Eyes: Extraocular muscles are intact. Pupils are equal, round and reactive to light and accommodation. Ears: No lesions. Nose appeared normal. Throat: No exudate or erythema. NECK: Supple. No JVD, no carotid bruit. No lymphadenopathy or thyromegaly. LUNGS: Clear to auscultation. Percussion note normal. Chest symmetrical. HEART: S1, S2, no S3. No murmurs. No cyanosis or clubbing. No ascites. Pulses: Dorsalis pedis and posterior tibial pulses +1 to +2 both sides. ABDOMEN: Soft. Non-tender. Bowel sounds active. No CVA tenderness. No mass felt. EXTREMITIES: No edema. Full range of motion of all extremities, equal. NEUROLOGIC: No focal deficit. Cranial nerves II through XII are grossly intact. No headache, no double vision or headache. SKIN: Not dry. Intact. Turgor-normal. LYMPHATIC: No palpable lymph nodes/no lymphedema. MUSCULOSKELETAL: Normal joints with no swelling. Muscle tone is normal. LAB REVIEW: 12/01/16 04:30 12/01/16 04:30 12/01/16 04:30: WBC 6.02, RBC 3.59 L, Hgb 11.9 L, Hct 35.3 L, MCV 98.3, MCH 33.1 H, MCHC 33.7, RDW Coeff of Christopher 12.9, Plt Count 192, Immature Gran % (Auto) 0.3, Neut % (Auto) 48.0, Lymph % (Auto) 39.2, [place] % (Auto) 9.8, Eos % (Auto) 2.2, Baso % (Auto) 0.5, Immature Gran # (Auto) 0.0, Neut # 2.9, Lymph # 2.4, [place] # 0.6, Eos # 0.1, Baso # 0.0, Sodium 145, Potassium 3.8, Chloride 106, Carbon Dioxide 28, Anion Gap 14.8, BUN 30 H, Creatinine 1.24, Estimated GFR ( MDRD) 42.00, BUN/Creatinine Ratio 24.19, Glucose 118 H, Calcium 9.1, Total Bilirubin 0.38, AST 14 L, ALT 14, Alkaline Phosphatase 51 L, Total Protein 6.0, Albumin 3.0 L, Globulin 3.0, Albumin/Globulin Ratio 1.00 ASSESSMENT: 1. Falls 2. Syncope 3. Headache, resolved PLAN: 1. Echo today 2. Will discharge home today 3. All tests are negative 4. The patient is up and about with no weakness in the hospital. Fall precautions discussed. Recommended use of a walker at home. Plan and coordination of the patient's care discussed in the presence of Fish Cleaner and nurse. CONDITION: Stable SCRIBED BY: KT VEGA Veterinarian Epidemiologist scribed while in presence of service performed by Dr. TARA QUESADA/JENNIFER DAVISON APRN on 12/01/16 ([id number])
[2016-12-01] MEDS: ASPIRIN EC PO SCH (09:59)
[2016-12-01] MEDS: ZETIA PO SCH (10:01)
[2016-12-01] MEDS: FLONASE NAS SCH (10:02)
[2016-12-01] MEDS: KLONOPIN PO SCH (10:04)
--- NOTE | 2016-12-01 11:33 | PN ---
DATE OF SERVICE: 11/30/16 SUBJECTIVE: The patient is seen with trimming caser and nurse practitioner. 81-year-old white female hospitalized with syncopal episode, multiple falls. The patient's condition has improved. So far MRI, carotid scan all negative. REVIEW OF SYSTEMS: CONSTITUTIONAL: The patient looks more hydrated, more alert. No night sweats. No fatigue, malaise, lethargy. No fever or chills. HEENT: Eyes: No visual changes. No eye pain. No eye discharge. ENT: No runny nose. No epistaxis. No sinus pain. No sore throat. No odynophagia. No congestion. RESPIRATORY: No cough, no congestion. No hemoptysis. No shortness of breath. CARDIOVASCULAR: No angina symptoms. No CHF symptoms. No atypical chest pain for CAD. No palpitations. No orthopnea. GASTROINTESTINAL: No abdominal pain. No nausea or vomiting. No diarrhea or constipation. No hematemesis. No hematochezia. GENITOURINARY: No urgency. No frequency. No dysuria. No hematuria. No obstructive symptoms. No discharge. No pain. No significant abnormal bleeding. MUSCULOSKELETAL: No musculoskeletal pain; no joint swelling. NEUROLOGICAL: No headache. No neck pain. No syncope. No seizures. No dizziness. PSYCHIATRIC: Not anxious. No depression. No suicidal thoughts. No homicidal thoughts. SKIN: No rash. No lesions. No wounds. ENDOCRINE: No unexplained weight loss. No weight gain. HEMATOLOGIC/LYMPHATIC: No anemia. No purpura. No petechiae. No prolonged or excessive bleeding. No palpable lymph nodes. PHYSICAL EXAMINATION: HEENT: Head normocephalic, atraumatic. Eyes: Extraocular muscles are intact. Pupils are equal, round and reactive to light and accommodation. Ears: No lesions. Nose appeared normal. Throat: No exudate or erythema. NECK: Supple. No JVD, no carotid bruit. No lymphadenopathy or thyromegaly. LUNGS: Clear to auscultation. Percussion note normal. Chest symmetrical. CVS: S1, S2, no S3. No murmurs. No cyanosis or clubbing. No ascites. Pulses : Dorsalis pedis and posterior tibial pulses +1 to +2 both sides. ABDOMEN: Soft. Nontender. Bowel sounds active. No CVA tenderness. No mass felt. EXTREMITIES: No edema. Full range of motion of all extremities, equal. NEUROLOGIC: Central nervous system exam is normal. No focal deficit. Cranial nerves II through XII are grossly intact. No headache, no double vision or headache. SKIN: Not dry. Intact. Turgor - normal. LYMPHATIC: No palpable lymph nodes/no lymphedema. MUSCULOSKELETAL: Normal joints with no swelling. Muscle tone is normal. LABS: All acceptable. CONDITION: Stable TIME SPENT: More than 30 minutes. Plan and coordination of the patient's care discussed in the presence of nurse. SARAH
[2016-12-01 11:37] VITALS: BP 132/78; TEMP 97.4
--- NOTE | 2016-12-01 12:25 | CM.DICTOOL ---
ADMISSION: 11/29/16 10:47 DISCHARGE: December 01, 2016 DATE OF SERVICE: 12/01/16 FINAL DIAGNOSIS Syncope [place] Hypertension High Lipids GERD Generalized Anxiety Disorder Depression Chronic Kidney Disease, Stage 3 Osteoporosis TIA Carotid Stenosis, Dr. Fiore Lung Nodule, 2006 Refused Sanipractic Physician Cardiac Catheterization, 1991 and 2000 LAST VITALS Temp Pulse Resp BP Pulse Ox 97.4 F L 64 18 132/78 95 12/01/16 10:00 12/01/16 10:00 12/01/16 10:00 12/01/16 10:00 12/01/16 10:00 ACTIVE HOME MEDICATIONS Amitriptyline HCl (Elavil) 25 mg PO BEDTIME [facility] Last Admin: 11/30/16 20:13 Dose: 25 mg Aspirin (Aspirin Ec) 81 mg PO DAILYWM [facility] Last Admin: 12/01/16 09:59 Dose: 81 mg Clonazepam (Klonopin) 0.5 mg PO BID [facility] Last Admin: 12/01/16 10:04 Dose: 0.5 mg Ezetimibe (Zetia) 10 mg PO DAILY [facility] Last Admin: 12/01/16 10:01 Dose: 10 mg Fish Oil ([place]-3 Fish Oil) 1,000 mg PO 1200 [facility] Last Admin: 11/30/16 11:08 Dose: 1,000 mg Furosemide (Lasix Tab) 40 mg PO QDAC [facility] Last Admin: 12/01/16 05:36 Dose: 40 mg Meloxicam (Mobic) 7.5 mg PO [id number]@[id number] [facility] Last Admin: 12/01/16 10:02 Dose: 7.5 mg Calcium 1000 + D3 1 each PO 1200 [facility] Last Admin: 11/30/16 11:12 Dose: 1 each Crestor ( (Rosuvastatin)40mg) 1 each PO BEDTIME [facility] Last Admin: 11/30/16 20:13 Dose: 1 each Diltiazem Xr 240mg (Capsule) 1 each PO DAILY [facility] Last Admin: 12/01/16 09:59 Dose: [address] 40mg (Capsule) 1 each PO QDAC [facility] Last Admin: 12/01/16 05:36 Dose: 1 each Lisinopril (Zestril) (20mg) 1 each PO BID [facility] Last Admin: 12/01/16 10:00 Dose: 1 each ALLERGIES iodine Allergy (Verified 05/12/16 08:15) sulfamethoxazole [From Bactrim] Adverse Reaction (Verified 05/12/16 08:15) trimethoprim [From Bactrim] Adverse Reaction (Verified 05/12/16 08:15) NEW PRESCRIPTIONS: Flonase 2 sprays both nostrils daily SMOKING: Not Applicable DISEASE SPECIFIC EDUCATION: Use of Nasal [place] Use of Walker Appointment LAB REVIEW: 12/01/16 04:30 12/01/16 04:30 12/01/16 04:30: WBC 6.02, RBC 3.59 L, Hgb 11.9 L, Hct 35.3 L, MCV 98.3, MCH 33.1 H, MCHC 33.7, RDW Coeff of [place] 12.9, Plt Count 192, Immature Gran % (Auto) 0.3, Neut % (Auto) 48.0, Lymph % (Auto) 39.2, [place] % (Auto) 9.8, Eos % (Auto) 2.2, Baso % (Auto) 0.5, Immature Gran # (Auto) 0.0, Neut # 2.9, Lymph # 2.4, [place] # 0.6, Eos # 0.1, Baso # 0.0, Sodium 145, Potassium 3.8, Chloride 106, Carbon Dioxide 28, Anion Gap 14.8, BUN 30 H, Creatinine 1.24, Estimated GFR ( MDRD) 42.00, BUN/Creatinine Ratio 24.19, Glucose 118 H, Calcium 9.1, Total Bilirubin 0.38, AST 14 L, ALT 14, Alkaline Phosphatase 51 L, Total Protein 6.0, Albumin 3.0 L, Globulin 3.0, Albumin/Globulin Ratio 1.00 PLAN: Discharge home Diet: Heart Healthy Activity: Gradually Resume as tolerated Use of a walker is recommended No changes in home medications have been made Resume all home medications An appointment has been scheduled with Dr. Arroyo on at 2:30 pm for a hospital follow-up. Please call [phone] if you need to reschedule. Ms Sewell is alert and oriented x 3. She transfers with stand by assistance to the chair and is ambulatory with use of a rolling walker in the room and hallway. She declines a prescription for a walker, but reports her daughter has a rollator for her to use at home when needed. She is advised to always use the braking mechanism on the handles prior to sitting on the seat of the rollator. She voices understanding of this. Meal intakes are good at 100%. She denies nausea, dizziness or headache. The skin is intact and free of decubitus ulcers. A small abrasion is noted under the right knee. Vito Arroyo MD Jennifer Herman APRN
--- NOTE | 2016-12-01 13:44 | DS ---
DATE OF SERVICE: 12/01/16 FINAL DIAGNOSIS: 1. SYNCOPE 2. FALLS 3. HYPERTENSION 4. HIGH LIPIDS 5. GERD 6. GENERALIZED ANXIETY DISORDER 7. DEPRESSION 8. CHRONIC KIDNEY DISEASE, STAGE 3 9. OSTEOPOROSIS 10. TIA 11. CAROTID STENOSIS, DR. IYER 12. 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 CARDIAC CATHETERIZATION, 1991 AND 2000 DISCHARGE INSTRUCTIONS: Followup appointment with Dr. Arroyo on 12/07/16 at 2:30 p.m. for hospital followup. Please call [phone] if you need to reschedule. MEDICATIONS AT DISCHARGE: Lasix 40 mg p.o. daily Klonopin 0.5 mg p.o. b.i.d. Zestril 20 mg p.o. b.i.d. Zetia 10 mg p.o. daily Diltiazem 240 mg p.o. daily Nexium 40 mg p.o. daily Aspirin 81 mg p.o. daily Crestor 40 mg p.o. bedtime [place] 3 fatty acids/fish oil (fish oil 1,000 mg softgel) 1,000 mg p.o. 1200 Mobic 7.5 mg p.o. Sunday, Sunday and Sunday Calcium Carbonate/Vitamin D3 (Calcium 500-Vit D3 400 tablet) one each p.o. daily Elavil 25 mg p.o. bedtime NEW PRESCRIPTIONS: Flonase 2 sprays both nostrils daily DIET INSTRUCTIONS: Heart Healthy ACTIVITY: Gradually resume as tolerated. Use of a walker recommended. SMOKING: N/A DISEASE SPECIFIC EDUCATION: Use of nasal spray Use of walker Appointment HOSPITAL COURSE: This is an 81-year-old female who presented to our office on the . She stated that she had had two falls within the past five days. One she stated she missed a step and the second fall she stated she was just walking in the yard and fell down. She had some significant bruising around the right eye. She reported that she had not been experiencing any dizziness but just felt off balance and had fallen. She was admitted, placed on routine telemetry orders. CT of the head was done which was normal and showed changes only associated with aging. Carotid study was done which showed no significant stenosis in bilateral carotid arteries. Telemetry remained normal. During the course of her hospital stay, she had no significant bradycardia. She has remained alert and oriented times three. Chest and rib x-rays were both normal. The patient did report some nasal stuffiness and headache when she was admitted. We started her on Flonase twice a day. Today on day of discharge, she states she is feeling well. She has not experienced any dizziness. She has not been experiencing any headache for the past 24 hours. She has been up and about without assistance. She has been instructed to use a walker at home. The patient states that she doesn't know if she is ready to use a walker. Fall precautions have been discussed regarding orthostastic changes upon movement. She is instructed to dangle her foot and get up slowly. Her medications have been reviewed and remain unchanged. She has been eating 100% of her meals for the past two days. She currently resides by herself. We will follow up with her closely and see her in the office next week. VITAL SIGNS ON DAY OF DISCHARGE: Temperature 97.4, heart rate 64, respirations 18, BP 132/78, pulse ox 95%. LABS ON DAY OF DISCHARGE: Hemoglobin 11.9, hematocrit 35.3, platelets 192, white count 6.0. Sodium 145, potassium 3.8, BUN 30, creatinine 1.24. The patient will be discharged to home in stable condition. TIME SPENT: More than 60 minutes. SARAH
[2016-12-01] MEDS: OMEGA-3 FISH OIL PO SCH (14:06)
--- NOTE | 2016-12-01 14:23 | ECHO2D ---
Date of Exam: 12/01/16 Ordering Physician: TARA QUESADA Room #:111 Reason for Echo: SYNCOPE M-Mode Normal Adult Results LV Dimensions Normal Adult Results AoV Opening excursions >1.6 >1.6 LVEDD-base- 3.5-5.8 4.3 Ao root dimensions 2.0-3.7 3.0 LVESD-base- 3.1-4.6 L. Atrium dimensions 1.9-3.8 3.8 Post. Wall thickness 0.8-1.1 1.1 IV septum (thickness) 0.7-1.2 1.0 Post. Wall excursion 0.72-1.3 NORMAL Septal motion NORMAL Systolic motion R. Ventricular cavity 1.5-2.0 NORMAL LVEF 60% 56% Paradoxical septal wall motion NORMAL 2-D : 2-D M Mode Echocardiogram was performed using apical four chamber and left parasternal long and short axis views. Mitral, tricuspid and aortic valves appear to be normal. Contractility of the left ventricle seems to be normal, so is the cavity size. Left atrial cavity size and aortic root appear to be normal. There is no pericardial effusion. There is no thrombus noted in the left ventricular or left aortic cavity. No mitral valve prolapse noted. M-MODE: MV: NORMAL AV: NORMAL TV: NORMAL PV: CHAMBER SIZE: NORMAL WALL MOTION: NORMAL PERICARDIUM: NORMAL INTERPRETATION: 1. NORMAL 2 "D" "M" MODE ECHO MTDD
--- NOTE | 2016-12-07 09:43 | PN ---
DATE OF SERVICE: 12/01/16 SUBJECTIVE: The patient was seen and examined with Nurse Practitioner. 81 year old white female hospitalized with frequent falls 2-3 times within a week. Most of the time the patient had falling because of stumbling. No real history of black out spellings, No seizure activity. During the stay in the hospital Carotid scan, no hemodiagnostically significant carotid artery occlusive disease. CT of the brain was negative for any acute event. Telemetry did not show any arrhythmias of any significance. Echo was normal. The patient was up and about. Neurological issues was stable. The patient is advised to drink a lot of fluids. Also advised not to change her position too quickly. Her problem is that she takes off from whatever position she is in. She is advised to wait before she starts walking especially after laying down for more than half an hour or an hour. The patient at the time of discharge is stable. TIME SPENT: More than 30 minutes. Plan and coordination of the patient's care discussed in the presence of nurse. SARAH
--- NOTE | 2016-12-07 09:46 | PN ---
11/29/16: Observation, Level 5 11/30/16: Observation Intermediate 12/01/16: D as in discharge extensive observation MTDD
== END 2016-12-01 14:28 | disposition home or self-care (01) ==
LOC: INTOOBSV 10:47 → MEDSURG A 10:47
PROVIDERS: ADMIT Internal Medicine; ATTEND Internal Medicine
DX: R55 Syncope and collapse (principal); S29.9XXA Unspecified injury of thorax, initial encounter; S09.90XA Unspecified injury of head, initial encounter; S00.11XA Contusion of right eyelid and periocular area, initial encounter; I10 Essential (primary) hypertension; R29.6 Repeated falls; M62.81 Muscle weakness (generalized); I12.9 Hypertensive chronic kidney disease with stage 1 through stage 4 chronic kidney disease, or unspecified chronic kidney disease; N18.3 Chronic kidney disease, stage 3 (moderate); E78.5 Hyperlipidemia, unspecified; K21.9 Gastro-esophageal reflux disease without esophagitis; F41.8 Other specified anxiety disorders; M81.0 Age-related osteoporosis without current pathological fracture; G45.9 Transient cerebral ischemic attack, unspecified; I65.29 Occlusion and stenosis of unspecified carotid artery; R91.1 Solitary pulmonary nodule; R51 Headache; W10.9XXA Fall (on) (from) unspecified stairs and steps, initial encounter; Z79.899 Other long term (current) drug therapy
CPT/HCPCS: 36415; 80053; 81001; 82550; 82803; 83874; 84443; 84484; 85025; 87070; 93005; 93010

== ENCOUNTER 2018-04-09 09:43 | Emergency (ER) ==
[2018-04-09 09:49] VITALS: BP 147/76; TEMP 98.5; BMI 27.4
--- NOTE | 2018-04-09 10:05 | ED.PDOC ---
General ED Provider: Dr. NICHOLAS AGUIRRE Chief Complaint: Fall Stated Complaint: Fell and struck head. Patient states she tripped over a foot stool and hit corner of wall with her head. Denies loc. Patient has a 1.5cm laceration right side of forehead at hairline. Time Seen by Physician: 10:10 Mode of Arrival: Wheelchair Information Source: Patient Exam Limitations: No limitations Primary Care Provider: TARA QUESADA Nursing and Triage Documentation Reviewed and Agree: Yes Does patient meet sepsis criteria?: No If yes, has appropriate treatment been initiated?: No System Inflammatory Response Syndrome: Not Applicable Sepsis Protocol: For patient's 13 years and over: Temp is 96.8 and below OR 101 and greater Pulse >90 BPM Resp >20/minute Acutely Altered Mental Status Are patient's symptoms suggestive of a new infection, such as: -Pneumonia -Skin, Soft Tissue -Endocarditis -UTI -Bone, Joint Infection -Implantable Device -Acute Abdominal Infection -Wound Infection -Meningitis -Blood Stream Catheter Infection -Unknown Review of Systems - Review Of Systems Constitutional: Reports: No symptoms Eyes: Reports: No symptoms Ears, Nose, Mouth, Throat: Reports: No symptoms Respiratory: Reports: No symptoms Cardiac: Reports: No symptoms GI: Reports: No symptoms : Reports: No symptoms Musculoskeletal: Reports: No symptoms Skin: Reports: No symptoms, Other (skin laceration forehead) Neurological: Reports: No symptoms Endocrine: Reports: No symptoms Hematologic/Lymphatic: Reports: No symptoms All Other Systems: Reviewed and Negative Past Medical History - Past Medical History Previously Healthy: No Endocrine: Reports: Dyslipidemia Cardiovascular: Reports: Hypertension, 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, 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) Respiratory: Reports: Other (SINUS CONGESTION- ALLERGIES) Hematological: Reports: None Gastrointestinal: Reports: GERD (BARRETTS), Other (agarwal's espophagus) Genitourinary: Reports: Unknown Neuro/Psych: Reports: Anxiety, Depression, Other (NEUROPATHY) Musculoskeletal: Reports: Arthritis, Other (hip bursitis) Cancer: Reports: Other (PolyPs out of neck of bladder) Last Menstrual Period: n/a Other Pertinent Past Medical History: hip bursitis - Surgical History General Surgical History: Reports: Tonsillectomy - Family History Family History: Reports: Other (EXHUSBAND WAS HEAVY SMOKER) - Social History Smoking Status: Never smoker Hx Substance Use: No Alcohol Screening: None Physical Exam - Physical Exam Appearance: Well-appearing, No pain distress, Well-nourished Ill-appearing: Mild Pain Distress: None Eyes: DG, EOMI, Conjunctiva clear ENT: Ears normal, Nose normal, Oropharynx normal Neck: Supple Respiratory: Airway patent, Breath sounds clear, Breath sounds equal, Respirations nonlabored Cardiovascular: RRR, Pulses normal, No rub, No murmur GI/: Soft, Nontender, No masses, Bowel sounds normal, No Organomegaly Musculoskeletal: Normal strength, ROM intact, No edema, No calf tenderness Skin: Warm (Superficial forehead lacertion ), Dry, Normal color Neurological: Sensation intact, Motor intact, Reflexes intact, Cranial nerves intact, Alert, Oriented Interpretation - Radiology Interpretation Exam Interpreted: CT Scan (head-rt frontal scalp swelling-hematoma) Critical Care Note - Critical Care Note Total Time (mins): 60 Course - Course Hematology/Chemistry: 04/09/18 10:25 04/09/18 10:25 Orders, Labs, Meds: Lab Review 04/09/18 04/09/18 04/09/18 10:05 10:25 10:25 WBC 5.88 RBC 3.78 L Hgb 12.5 Hct 38.2 MCV 101.1 H MCH 33.1 H MCHC 32.7 RDW Coeff of Christopher 12.6 Plt Count 182 Immature Gran % (Auto) 0.2 Neut % (Auto) 55.4 Lymph % (Auto) 34.0 [place] % (Auto) 9.0 Eos % (Auto) 1.2 Baso % (Auto) 0.2 Immature Gran # (Auto) 0.0 Neut # (Auto) 3.3 Lymph # (Auto) 2.0 [place] # (Auto) 0.5 Eos # (Auto) 0.1 Baso # (Auto) 0.0 Sodium 135.6 Potassium 4.54 Chloride 104.5 Carbon Dioxide 26.2 Anion Gap 9.44 BUN 27.4 H Creatinine 1.41 H Estimated GFR (MDRD) 36.00 BUN/Creatinine Ratio 19.43 Glucose 106.8 H Calcium 9.07 Total Bilirubin 0.56 AST 24.9 ALT 19.7 Alkaline Phosphatase 50.6 L Total Protein 7.11 Albumin 4.05 Globulin 3.06 Albumin/Globulin Ratio 1.32 Urine Color Yellow Urine Clarity Clear Urine pH 7.0 Ur Specific [place] 1.015 Urine Protein Trace Urine Glucose (UA) Negative Urine Ketones Negative Urine Blood Negative Urine Nitrite Negative Urine Bilirubin Negative Urine Urobilinogen 1.0 Ur Leukocyte Esterase Trace Urine Microscopic RBC 0-2 Urine Microscopic WBC 0-2 Ur Squamous Epith Cells 0-2 Orders Category Date Time Status EKG-(ED ONLY) Stat CARDIO 04/09/18 10:14 Completed VITAL SIGNS Q30MIN CARE 04/09/18 10:14 Active CBC W/ AUTO DIFF Stat LAB 04/09/18 10:25 Completed CMP [COMPREHENSIVE METABOLIC PANEL] Stat LAB 04/09/18 10:25 Completed UA [URINALYSIS C & S IF INDICATED] Stat LAB 04/09/18 10:05 Completed Acetaminophen [Tylenol] MEDS 04/09/18 12:27 Discontinued 650 mg PO ONCE STA Diphth,Pertuss(Acell),Tet Vac [Boostrix] MEDS 04/09/18 12:57 Discontinued 0.5 ml IM .ONCE ONE CT HEAD W/O CONTRAST Stat RADS 04/09/18 10:15 Completed Medications Discontinued Medications Generic Name Dose Route Start Last Admin Trade Name Lewisq PRN Reason Stop Dose Admin Acetaminophen 650 mg 04/09/18 12:27 04/09/18 12:46 Tylenol PO 04/09/18 12:28 650 mg ONCE STA Administration Diphtheria/Pertussis/Tetanus Vacc 0.5 ml 04/09/18 12:57 04/09/18 13:03 Boostrix IM 04/09/18 12:58 0.5 ml .ONCE ONE Administration Vital Signs: Temp Pulse Resp BP Pulse Ox 04/09/18 09:45 98.5 F 73 20 147/76 H 95 Departure - Departure Time of Disposition: 12:40 Disposition: HOME SELF-CARE Discharge Problem: Laceration of skin of forehead without complication, Closed head injury Instructions: Concussion (ED), Steristrips (ED) Condition: Good Pt referred to PMD for follow-up: Yes (1 week) IPMP verified?: No Additional Instructions: Wound care Leave dressing in place CHange daily See PCP in 1 week May take Tylenol 2 tabs for pain every 4 hrs as needed Allergies/Adverse Reactions: Allergies iodine Allergy (Verified 04/09/18 09:50) sulfamethoxazole [From Bactrim] Adverse Reaction (Verified 04/09/18 09:50) trimethoprim [From Bactrim] Adverse Reaction (Verified 04/09/18 09:50) Home Medications: Ambulatory Orders Aspirin [Aspirin Chewable] 81 mg PO DAILY 08/25/12 Clonazepam [Klonopin] 1 mg PO BID 08/25/12 Diltiazem HCl [Diltiazem 24Hr Cd] 240 mg PO DAILY 08/25/12 Esomeprazole Magnesium [Nexium] 40 mg PO DAILY 08/25/12 Ezetimibe [Zetia] 10 mg PO DAILY 08/25/12 Furosemide [Lasix Tab] 40 mg PO DAILY 08/25/12 Lisinopril [Zestril] 20 mg PO BEDTIME 08/25/12 Rosuvastatin Calcium [Crestor] 40 mg PO BEDTIME 05/03/14 Meloxicam [Mobic] 7.5 mg PO MOWEFR 01/04/15 [place]-3 Fatty Acids/Fish Oil [Fish Oil 1,000 mg Softgel] 1,000 mg PO 1200 Calcium Carbonate/Vitamin D3 [Calcium 500-Vit D3 400 Tablet] 1 each PO DAILY 11/08 Amitriptyline HCl [Elavil] 25 mg PO BEDTIME 11/29/16 Fluticasone Propionate [Flonase] 2 spray NS DAILY #1 spray.susp 12/01/16 Cetirizine HCl 10 mg PO DAILY 04/09/18 Terbinafine HCl 250 mg PO DAILY 04/09/18 Skin Complaint Exam - Laceration/Head/Facial Complaint/Exam Location of Injury: Forehead, Other Mechanism of Injury: Laceration (superficial) Onset/Duration: Earlier this date Symptoms Are: Still present Initial Severity: Mild Current Severity: Mild Aggravating: None Alleviating: None Associated Signs and Symptoms: Denies: Fever, Chills, Erythema, Numbness, Tingling Related History: Denies: Anticoagulant use Differential Diagnoses: Laceration (Superficial-reapproximated well with steristrips)
--- NOTE | 2018-04-09 11:07 | CT ---
EXAM: CT of the head without contrast History: Head trauma. Comparison: Head CT 05/12/2016 Technique: Multiplanar CT images through the head were obtained without the administration of IV con trast Findings: The visualized paranasal sinuses and mastoid air cells are clear in general. No acute karol varial abnormalities. Incidental hyperostosis frontalis. Mild to moderate soft tissue swelling of t he right frontal scalp with foci of soft tissue air probably indicating a laceration. Intracranially the ventricular and cisternal spaces are normal in size, shape and configuration for a patient of this age. No dominant mass or midline shift. No hydrocephalous. No acute intracranial hemorrhage or abnormal extraaxial fluid collections. Impression: 1. No acute intracranial process. 2. Right frontal scalp soft tissue swelling with laceration.
[2018-04-09] MEDS ORDERED: TYLENOL PO STA (12:27)
[2018-04-09] MEDS ORDERED: BOOSTRIX IM ONE (12:57)
== END 2018-04-09 13:17 | disposition home or self-care (01) ==
LOC: ED 09:43
DX: S01.81XA Laceration without foreign body of other part of head, initial encounter (principal); W18.09XA Striking against other object with subsequent fall, initial encounter; W19.XXXA Unspecified fall, initial encounter; E78.5 Hyperlipidemia, unspecified; I10 Essential (primary) hypertension; Z87.19 Personal history of other diseases of the digestive system; Z79.899 Other long term (current) drug therapy
CPT/HCPCS: 36415; 80053; 81001; 85025; 90715; 93005; 93010; 96372; 99283

== ENCOUNTER 2018-06-29 09:03 | Emergency (ER) ==
[2018-06-29 09:03] VITALS: BMI 27.4
[2018-06-29 09:15] VITALS: BP 130/71; TEMP 99.1
--- NOTE | 2018-06-29 09:52 | ED.PDOC ---
General ED Provider: Dr. NICHOLAS AGUIRRE Chief Complaint: Respiratory Complaint Stated Complaint: Nasal, respiratory and sinus congestion Time Seen by Physician: 09:45 Mode of Arrival: Walk-In Information Source: Patient Exam Limitations: No limitations Primary Care Provider: TARA QUESADA Nursing and Triage Documentation Reviewed and Agree: Yes Does patient meet sepsis criteria?: No System Inflammatory Response Syndrome: Not Applicable Sepsis Protocol: For patient's 13 years and over: Temp is 96.8 and below OR 101 and greater Pulse >90 BPM Resp >20/minute Acutely Altered Mental Status Are patient's symptoms suggestive of a new infection, such as: -Pneumonia -Skin, Soft Tissue -Endocarditis -UTI -Bone, Joint Infection -Implantable Device -Acute Abdominal Infection -Wound Infection -Meningitis -Blood Stream Catheter Infection -Unknown Respiratory Complaint Exam - Respiratory Complaint/Exam Onset/Duration: LAST EVENING Symptoms Are: Still present Timing: Intermittent Initial Severity: Mild Current Severity: Moderate Location: Nose, Throat, Chest Character: Reports: Non-productive cough, Dry cough Aggravating: Reports: Weather, Recumbent position Alleviating: Reports: None Associated Signs and Symptoms: Reports: Nasal congestion, Hoarseness, Sinus discomfort History of Healthcare-Acquired Pneumonia: No Related Surgical History: Reports: None Pulmonary Embolism Risk Factors: None Cardiac Risk Factors: Reports: None Pseudomonas Risk Factors: Reports: None Tuberculosis Risk Factors: Reports: None Status Asthmaticus Risk Factors: Reports: None Home Oxygen Use: No Recent Stress Test: No Recent Echo/LV Function: No Current Antibiotic Use: No Current Asthma Medication Use: No Respiratory Distress: None Inadequate Respiratory Effort: Yes Dysphagia Present: No Stridor Present: No JVD Present: No Accessory Muscle Use: No Retractions: Not Present Diminished Breath Sounds: Yes Sinus Tenderness: Frontal, Maxillary Grunting Respirations: No Kussmaul Respirations: No Differential Diagnoses: Sinusitis, URI, Influenza Non-Traumatic Chest Pain Syncope: EKG Performed Review of Systems - Review Of Systems Constitutional: Reports: No symptoms Eyes: Reports: No symptoms Ears, Nose, Mouth, Throat: Reports: No symptoms Respiratory: Reports: Cough, Wheezing Cardiac: Reports: No symptoms GI: Reports: No symptoms : Reports: No symptoms Musculoskeletal: Reports: No symptoms Skin: Reports: No symptoms Neurological: Reports: No symptoms Endocrine: Reports: No symptoms Hematologic/Lymphatic: Reports: No symptoms All Other Systems: Reviewed and Negative Past Medical History - Past Medical History Previously Healthy: No Endocrine: Reports: Dyslipidemia Cardiovascular: Reports: Hypertension, 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, 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) Respiratory: Reports: Other (SINUS CONGESTION- ALLERGIES) Hematological: Reports: None Gastrointestinal: Reports: GERD (BARRETTS), Other (agarwal's espophagus) Genitourinary: Reports: Unknown Neuro/Psych: Reports: Anxiety, Depression, Other (NEUROPATHY) Musculoskeletal: Reports: Arthritis, Other (hip bursitis) Cancer: Reports: Other (PolyPs out of neck of bladder) Last Menstrual Period: NONE Other Pertinent Past Medical History: hip bursitis - Surgical History General Surgical History: Reports: Tonsillectomy - Family History Family History: Reports: Other (EXHUSBAND WAS HEAVY SMOKER) - Social History Smoking Status: Never smoker Hx Substance Use: No Alcohol Screening: None Physical Exam - Physical Exam Appearance: Well-appearing, No pain distress, Well-nourished Ill-appearing: Mild Pain Distress: None Eyes: DG, EOMI, Conjunctiva clear ENT: Ears normal, Nose normal, Oropharynx normal Respiratory: Airway patent, Breath sounds clear, Breath sounds equal, Respirations nonlabored, Wheezes Cardiovascular: RRR, Pulses normal, No rub, No murmur GI/: Soft, Nontender, No masses, Bowel sounds normal, No Organomegaly Musculoskeletal: Normal strength, ROM intact, No edema, No calf tenderness Skin: Warm, Dry, Normal color Neurological: Sensation intact, Motor intact, Reflexes intact, Cranial nerves intact, Alert, Oriented Psychiatric: Affect appropriate, Mood appropriate Critical Care Note - Critical Care Note Total Time (mins): 60 Course - Course Hematology/Chemistry: 06/29/18 09:58 06/29/18 09:58 Orders, Labs, Meds: Lab Review 06/29/18 06/29/18 06/29/18 09:58 09:58 10:16 WBC 5.25 RBC 3.68 L Hgb 12.2 Hct 37.0 MCV 100.5 H MCH 33.2 H MCHC 33.0 RDW Coeff of Christopher 12.4 Plt Count 185 Immature Gran % (Auto) 0.0 Neut % (Auto) 51.4 Lymph % (Auto) 35.4 [place] % (Auto) 10.9 H Eos % (Auto) 1.9 Baso % (Auto) 0.4 Immature Gran # (Auto) 0.0 Neut # (Auto) 2.7 Lymph # (Auto) 1.9 [place] # (Auto) 0.6 Eos # (Auto) 0.1 Baso # (Auto) 0.0 Puncture Site Rr O2 Saturation 95.0 ABG pH 7.450 ABG pCO2 33.0 L ABG pO2 71.0 L ABG HCO3 23.0 ABG Total CO2 24 ABG Base Excess -1 Ziyad Test + FiO2 % 21.0 Sodium 138.1 Potassium 4.07 Chloride 103.7 Carbon Dioxide 25.5 Anion Gap 12.97 BUN 32.7 H Creatinine 1.46 H Estimated GFR (MDRD) 34.00 BUN/Creatinine Ratio 22.39 Glucose 97.6 Calcium 9.24 Total Bilirubin 0.55 AST 27.5 ALT 19.6 Alkaline Phosphatase 47.8 L Total Protein 6.64 Albumin 4.23 Globulin 2.41 Albumin/Globulin Ratio 1.75 Influ A Molecular Assay Influ B Molecular Assay 06/29/18 10:45 WBC RBC Hgb Hct MCV MCH MCHC RDW Coeff of Christopher Plt Count Immature Gran % (Auto) Neut % (Auto) Lymph % (Auto) [place] % (Auto) Eos % (Auto) Baso % (Auto) Immature Gran # (Auto) Neut # (Auto) Lymph # (Auto) [place] # (Auto) Eos # (Auto) Baso # (Auto) Puncture Site O2 Saturation ABG pH ABG pCO2 ABG pO2 ABG HCO3 ABG Total CO2 ABG Base Excess Ziyad Test FiO2 % Sodium Potassium Chloride Carbon Dioxide Anion Gap BUN Creatinine Estimated GFR (MDRD) BUN/Creatinine Ratio Glucose Calcium Total Bilirubin AST ALT Alkaline Phosphatase Total Protein Albumin Globulin Albumin/Globulin Ratio Influ A Molecular Assay Negative by naat Influ B Molecular Assay Negative by naat Orders Category Date Time Status ABG DRAW REQUEST Stat CARDIO 06/29/18 10:16 Completed EKG-(ED ONLY) Stat CARDIO 06/29/18 09:50 Completed NEBULIZER TREATMENT Stat CARDIO 06/29/18 10:31 Completed ABG Stat LAB 06/29/18 10:16 Completed CBC W/ AUTO DIFF Stat LAB 06/29/18 09:58 Completed CMP [COMPREHENSIVE METABOLIC PANEL] Stat LAB 06/29/18 09:58 Completed FLU A & B MOLECULAR [FLU A/B MOLECULAR] Stat LAB 06/29/18 10:45 Completed Albuterol Sulfate 0.083% Neb [Albuterol 0.083% Neb] MEDS 06/29/18 10:30 Discontinued 1 vial NEB ONCE STA CHEST, 1V AP ONLY Stat RADS 06/29/18 09:50 Completed Medications Discontinued Medications Generic Name Dose Route Start Last Admin Trade Name Freq PRN Reason Stop Dose Admin Albuterol Sulfate 1 vial 06/29/18 10:30 06/29/18 10:51 Albuterol 0.083% Neb NEB 06/29/18 10:31 1 vial ONCE STA Administration Vital Signs: Temp Pulse Resp BP Pulse Ox 06/29/18 09:03 99.1 F 75 22 130/71 95 Departure - Departure Time of Disposition: 12:20 Disposition: HOME SELF-CARE Discharge Problem: URI with cough and congestion Instructions: Upper Respiratory Infection (ED) Condition: Good Pt referred to PMD for follow-up: Yes IPMP verified?: No Additional Instructions: Take routine over the counter cough and cold meds to ease up congestion My use MDI albuterol if needed for chest congestion, wheezing or shortness or breath See your PCP in follow up in 1 week Prescriptions: Albuterol Sulfate [Ventolin Hfa] 2 puff IH Q4-6H PRN #1 inhaler PRN Reason: Chest Wheezing/Congestion Allergies/Adverse Reactions: Allergies iodine Allergy (Verified 06/29/18 09:08) sulfamethoxazole [From Bactrim] Adverse Reaction (Verified 06/29/18 09:08) trimethoprim [From Bactrim] Adverse Reaction (Verified 06/29/18 09:08) Home Medications: Ambulatory Orders Aspirin [Aspirin Chewable] 81 mg PO MOFR 08/25/12 Clonazepam [Klonopin] 1 mg PO BID 08/25/12 Diltiazem HCl [Diltiazem 24Hr Cd] 240 mg PO DAILY 08/25/12 Esomeprazole Magnesium [Nexium] 40 mg PO DAILY 08/25/12 Rosuvastatin Calcium [Crestor] 40 mg PO BEDTIME 05/03/14 Meloxicam [Mobic] 7.5 mg PO MOWEFR 01/04/15 [place]-3 Fatty Acids/Fish Oil [Fish Oil 1,000 mg Softgel] 1,000 mg PO 1200 Calcium Carbonate/Vitamin D3 [Calcium 500-Vit D3 400 Tablet] 1 each PO DAILY 11/08 Amitriptyline HCl [Elavil] 25 mg PO BEDTIME 11/29/16 Albuterol Sulfate [Ventolin Hfa] 2 puff IH Q4-6H PRN #1 inhaler 06/29/18 Budesonide/Formoterol Fumarate [Symbicort 160-4.5 Mcg Inhaler] 2 puff IH BID 09/11 Ezetimibe [Zetia] 10 mg PO DAILY 06/29/18 Furosemide [Lasix Tab] 20 mg PO MOWEFR 06/29/18 Lisinopril [Zestril] 20 mg PO BEDTIME 06/29/18 Disposition Discussed With: Patient, Family
[2018-06-29] MEDS ORDERED: ALBUTEROL 0.083% NEB NEB STA (10:30)
--- NOTE | 2018-06-29 12:06 | DI ---
EXAM: CHEST FRONTAL VIEW HISTORY: Cough. COMPARISON: 12/09/2016 FINDINGS: Heart size and mediastinum remain within normal limits. There is at least mild atherosc lerotic disease. No acute infiltrates are seen. No vascular congestion. There is no consolidation, visible pleural fluid or pneumothorax. Bones reveal no acute fracture. IMPRESSION: No acute cardiopulmonary process.
== END 2018-06-29 13:08 | disposition home or self-care (01) ==
LOC: ED 09:03
DX: J06.9 Acute upper respiratory infection, unspecified (principal); E78.5 Hyperlipidemia, unspecified; I10 Essential (primary) hypertension; Z79.899 Other long term (current) drug therapy
CPT/HCPCS: 36415; 80053; 82803; 85025; 87502; 93005; 93010; 94640; 99283

== ENCOUNTER 2018-07-04 17:33 | Emergency (ER) ==
[2018-07-04 17:34] VITALS: BMI 27.4
[2018-07-04 17:36] VITALS: BP 135/76
[2018-07-04] MEDS ORDERED: SODIUM CHLORIDE 1,000 ML IV STA (18:21)
--- NOTE | 2018-07-04 18:21 | ED.PDOC ---
General ED Provider: Dr. NICHOLAS AGUIRRE Chief Complaint: Nausea/Vomiting Stated Complaint: Nausea, Vomiting, abdominal cramping and diarrhea. Time Seen by Physician: 18:20 Mode of Arrival: Walk-In Information Source: Patient Exam Limitations: No limitations Primary Care Provider: TARA QUESADA Nursing and Triage Documentation Reviewed and Agree: Yes Does patient meet sepsis criteria?: No System Inflammatory Response Syndrome: Not Applicable Sepsis Protocol: For patient's 13 years and over: Temp is 96.8 and below OR 101 and greater Pulse >90 BPM Resp >20/minute Acutely Altered Mental Status Are patient's symptoms suggestive of a new infection, such as: -Pneumonia -Skin, Soft Tissue -Endocarditis -UTI -Bone, Joint Infection -Implantable Device -Acute Abdominal Infection -Wound Infection -Meningitis -Blood Stream Catheter Infection -Unknown GI Complaint Exam - Vomiting/Diarrhea Complaint/Exam Onset/Duration: 24 hrs Symptoms Are: Still present (but improved) Initial Severity: Severe Current Severity: Mild Character of Vomiting: Reports: Bilious Character of Diarrhea: Reports: Watery Aggravating: Reports: Food, Position Alleviating: Reports: Clear liquids Associated Signs and Symptoms: Reports: Light-headedness, Abdominal pain Related History: Denies: Similar episode Non-GI Risk Factors: Reports: None Surgical Obstruction Risk Factors: Reports: None Related Surgical History: Reports: None Abdominal Findings: Present: None Rectal Exam: Absent: Normal Findings Kussmaul Respirations Present: No Differential Diagnoses: Viral Gastroenteritis, Bacterial Gastroenteritis Review of Systems - Review Of Systems Constitutional: Reports: Malaise, Weakness Eyes: Reports: No symptoms Ears, Nose, Mouth, Throat: Reports: No symptoms Respiratory: Reports: No symptoms Cardiac: Reports: No symptoms GI: Reports: No symptoms, Abdominal pain, Diarrhea, Nausea, Poor appetite, Poor fluid intake, Vomiting : Reports: No symptoms Musculoskeletal: Reports: No symptoms Skin: Reports: No symptoms Neurological: Reports: No symptoms Endocrine: Reports: No symptoms Hematologic/Lymphatic: Reports: No symptoms All Other Systems: Reviewed and Negative Past Medical History - Past Medical History Previously Healthy: Yes Endocrine: Reports: Dyslipidemia Cardiovascular: Reports: Hypertension, 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, 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) Respiratory: Reports: Other (SINUS CONGESTION- ALLERGIES) Hematological: Reports: None Gastrointestinal: Reports: GERD (BARRETTS), Other (agarwal's espophagus) Genitourinary: Reports: Unknown Neuro/Psych: Reports: Anxiety, Depression, Other (NEUROPATHY) Musculoskeletal: Reports: Arthritis, Other (hip bursitis) Cancer: Reports: Other (PolyPs out of neck of bladder) Last Menstrual Period: N/A Other Pertinent Past Medical History: hip bursitis - Surgical History General Surgical History: Reports: Tonsillectomy - Family History Family History: Reports: Other (EXHUSBAND WAS HEAVY SMOKER) - Social History Smoking Status: Never smoker Hx Substance Use: No Alcohol Screening: None - Immunizations Tetanus Shot up to Date: No Physical Exam - Physical Exam Appearance: Ill-appearing, Obese Ill-appearing: Moderate Pain Distress: Mild Eyes: DG, EOMI, Conjunctiva clear ENT: Ears normal, Nose normal, Oropharynx normal Neck: Supple Respiratory: Airway patent, Breath sounds clear, Breath sounds equal, Respirations nonlabored Cardiovascular: RRR, Pulses normal, No rub, No murmur GI/: Soft, Nontender, No masses, Bowel sounds normal, No Organomegaly Musculoskeletal: Normal strength, ROM intact, No edema, No calf tenderness Skin: Warm, Dry, Normal color Neurological: Sensation intact Psychiatric: Affect appropriate, Mood appropriate Critical Care Note - Critical Care Note Total Time (mins): 60 Course - Course Hematology/Chemistry: 07/04/18 18:31 07/04/18 18:31 Orders, Labs, Meds: Lab Review 07/04/18 07/04/18 18:31 18:31 WBC 7.10 RBC 4.21 Hgb 14.1 Hct 43.1 MCV 102.4 H MCH 33.5 H MCHC 32.7 RDW Coeff of Christopher 12.8 Plt Count 180 Immature Gran % (Auto) 0.6 Neut % (Auto) 80.2 Lymph % (Auto) 10.7 Brewster % (Auto) 8.0 Eos % (Auto) 0.4 Baso % (Auto) 0.1 Immature Gran # (Auto) 0.0 Neut # (Auto) 5.7 Lymph # (Auto) 0.8 Brewster # (Auto) 0.6 Eos # (Auto) 0.0 Baso # (Auto) 0.0 Sodium 138.7 Potassium 3.11 L Chloride 106.5 Carbon Dioxide 22.3 Anion Gap 13.01 BUN 28.7 H Creatinine 1.15 Estimated GFR (MDRD) 45.00 BUN/Creatinine Ratio 24.95 Glucose 88.7 Calcium 8.18 L Total Bilirubin 0.66 AST 36.5 H ALT 29.8 Alkaline Phosphatase 48.8 L Total Protein 6.94 Albumin 4.32 Globulin 2.62 Albumin/Globulin Ratio 1.64 Orders Category Date Time Status IV [ED IV/MEDIPORT/POWERPORT] .ONCE EMERGENCY 07/04/18 18:21 Active CBC W/ AUTO DIFF Stat LAB 07/04/18 18:31 Completed CMP [COMPREHENSIVE METABOLIC PANEL] Stat LAB 07/04/18 18:31 Completed 0.9 % Sodium Chloride [Saline Flush] MEDS 07/04/18 18:21 Discontinued 1 syr IVF PRN PRN Ondansetron HCl/Pf [Zofran 4 mg/2 ml] MEDS 07/04/18 18:22 Discontinued 4 mg IVP ONCE STA Sodium Chloride 0.9% [Sodium Chloride] 1,000 ml MEDS 07/04/18 18:21 Discontinued IV BOLUS ABDOMEN, SERIES FLAT & UPRIGHT Stat RADS 07/04/18 19:18 Completed Medications Discontinued Medications Generic Name Dose Route Start Last Admin Trade Name Freq PRN Reason Stop Dose Admin Sodium Chloride 1,000 mls @ 1,000 mls/hr 07/04/18 18:21 07/04/18 18:40 Sodium Chloride IV 07/04/18 19:20 1,000 mls/hr BOLUS STA Administration Ondansetron HCl 4 mg 07/04/18 18:22 07/04/18 18:40 Zofran 4 Mg/2 Ml IVP 07/04/18 18:23 4 mg ONCE STA Administration Sodium Chloride 1 syr 07/04/18 18:21 Saline Flush IVF PRN PRN To flush IV Vital Signs: Temp Pulse Resp BP Pulse Ox 07/04/18 20:33 100.5 F H 07/04/18 17:34 100.1 F H 81 20 135/76 95 Departure - Departure Time of Disposition: 20:30 Disposition: HOME SELF-CARE Discharge Problem: Gastroenteritis, Hypokalemia due to loss of potassium, Dehydration symptoms Instructions: Gastroenteritis (ED) Condition: Fair Pt referred to PMD for follow-up: Yes IPMP verified?: No Additional Instructions: Remain on Clear liquid diet May take zofran every 6-8 hrs if needed for nausea or vomiting Tea, [place] and Jelly, Broth, Jello Advance as tolerated Monitor Temperature and take tylenol 1-2 tabs if needed for temp elevation above 101 Prescriptions: Ondansetron [Zofran Odt] 4 mg PO Q8H #7 tab.rapdis Allergies/Adverse Reactions: Allergies iodine Allergy (Verified 07/04/18 17:36) sulfamethoxazole [From Bactrim] Adverse Reaction (Verified 07/04/18 17:36) trimethoprim [From Bactrim] Adverse Reaction (Verified 07/04/18 17:36) Home Medications: Ambulatory Orders Aspirin [Aspirin Chewable] 81 mg PO DAILY 08/25/12 Clonazepam [Klonopin] 0.5 mg PO BID 08/25/12 Diltiazem HCl [Diltiazem 24Hr Cd] 240 mg PO DAILY 08/25/12 Esomeprazole Magnesium [Nexium] 40 mg PO DAILY 08/25/12 Rosuvastatin Calcium [Crestor] 40 mg PO BEDTIME 05/03/14 Meloxicam [Mobic] 7.5 mg PO MOWEFR 01/04/15 Adams-3 Fatty Acids/Fish Oil [Fish Oil 1,000 mg Softgel] 1,000 mg PO 1200 Calcium Carbonate/Vitamin D3 [Calcium 500-Vit D3 400 Tablet] 1 each PO DAILY 11/08 Amitriptyline HCl [Elavil] 25 mg PO BEDTIME 11/29/16 Albuterol Sulfate [Ventolin Hfa] 2 puff IH Q4-6H PRN #1 inhaler 06/29/18 Budesonide/Formoterol Fumarate [Symbicort 160-4.5 Mcg Inhaler] 2 puff IH BID 09/11 Ezetimibe [Zetia] 10 mg PO DAILY 06/29/18 Furosemide [Lasix Tab] 20 mg PO MOWEFR 06/29/18 Lisinopril [Zestril] 20 mg PO BEDTIME 06/29/18 Ondansetron [Zofran Odt] 4 mg PO Q8H #7 tab.rapdis 07/04/18 Metronidazole [Flagyl] 500 mg PO BID #1 tablet 07/09/18 Potassium Chloride 10 meq PO DAILY #1 capsule.er 07/09/18 Disposition Discussed With: Patient, Family Additional Comments Additional Comments: 07/16/18. Post ER Visit welfare call. Patient has totally recovered and feeling much better. No further problems.Reiterated importance of remaining well hydrated every day and consuming fruits and vegetables in diet daily.
[2018-07-04] MEDS ORDERED: ZOFRAN 4 MG/2 ML IVP STA (18:22)
[2018-07-04 20:33] VITALS: TEMP 100.5
--- NOTE | 2018-07-04 21:04 | DI ---
EXAM: Abdomen, two-view, 07/04/2018 HISTORY: Nausea, vomiting and diarrhea COMPARISON: 01/26/2014 FINDINGS / IMPRESSION: Nonobstructive bowel gas pattern.
== END 2018-07-04 20:52 | disposition home or self-care (01) ==
LOC: ED 17:33
DX: K52.9 Noninfective gastroenteritis and colitis, unspecified (principal); E86.0 Dehydration; E87.6 Hypokalemia; R42 Dizziness and giddiness; R10.9 Unspecified abdominal pain; R53.1 Weakness; I10 Essential (primary) hypertension; Z79.899 Other long term (current) drug therapy
CPT/HCPCS: 36415; 80053; 85025; 96360; 96375; 99283

== ENCOUNTER 2018-07-05 11:13 | Inpatient (IN) ==
[2018-07-05] MEDS ORDERED: ATROPINE SULFATE PFS IVP PRN (11:46)
[2018-07-05] MEDS ORDERED: NITROSTAT SL PRN (11:46)
[2018-07-05] MEDS ORDERED: VISTARIL INJ IM PRN (11:46)
[2018-07-05] MEDS ORDERED: PROTONIX PO PRN (11:51)
[2018-07-05 12:09] VITALS: BMI 29.6
[2018-07-05] MEDS ORDERED: PROAIR HFA IH PRN (12:39)
[2018-07-05] MEDS: SODIUM CHLORIDE 1,000 ML IV SCH (12:51)
[2018-07-05] MEDS ORDERED: ZOFRAN ODT PO SCH (13:00)
[2018-07-05] MEDS ORDERED: LASIX TAB PO SCH (13:00)
[2018-07-05] MEDS ORDERED: MOBIC PO SCH (13:00)
[2018-07-05] MEDS ORDERED: ASPIRIN CHEWABLE PO SCH (13:00)
--- NOTE | 2018-07-05 13:33 | DI ---
EXAM: CHEST FRONTAL AND LATERAL VIEWS HISTORY: Shortness of breath. COMPARISON: 06/29/2018 FINDINGS: Heart size and mediastinal contour remain within normal limits. There is at least mild atherosclerotic disease. No acute infiltrates are seen. No vascular congestion. There is no consol idation, visible pleural fluid or pneumothorax. Bones reveal no acute fracture. IMPRESSION: No acute cardiopulmonary process.
[2018-07-05] MEDS: ROCEPHIN 1 GM in SODIUM CHLORIDE 50 ML IV SCH (14:26)
--- NOTE | 2018-07-05 15:48 | CT ---
EXAM: CT of the abdomen pelvis without contrast History: Abdominal pain and vomiting, chronic kidney disease. Comparison: Abdominal radiograph 07/04/2018, CT abdomen pelvis 07/04/2018 Technique: Multiplanar CT images through the abdomen pelvis were obtained without the administration of IV contrast Findings: Coronary calcifications. Subsegmental atelectasis seen within the lower lungs. No acute osseous abnormalities. Severe degenerative disc disease at L2-L3 and moderate to severe degenerative disc disease at L4-L5 and L5-S1. No gallstones identified by CT. Atherosclerotic vascular calcifications. Prominent gastric folds. No focal liver or splenic lesions. Nondilated fluid filled loops of large and small bowel. No evide nce for bowel obstruction. No peripancreatic inflammation. Adrenal glands are unremarkable. No liam al stones and no hydronephrosis. Nonspecific bilateral perinephric stranding. Bladder is not well d istended. No bladder wall thickening. Atrophic uterus. No free air and no ascites. Impression: 1. Mild gastroenteritis. No bowel obstruction. 2. Degenerative changes of the lumbar spine. 3. Nonspecific bilateral perinephric stranding. 4. Atherosclerotic vascular disease
[2018-07-05] MEDS ORDERED: K-DUR PO STA (16:50)
[2018-07-05] MEDS ORDERED: NON-FORMULARY MEDICATION (Rosuvastatin Calcium [Crestor] 40 MG) PO SCH (21:00)
[2018-07-05] MEDS ORDERED: NON-FORMULARY MEDICATION (Lisinopril [Zestril] 20 MG) PO SCH (21:00)
[2018-07-05] MEDS ORDERED: KLONOPIN PO SCH (21:00)
[2018-07-05] MEDS ORDERED: SYMBICORT 160-4.5 MCG INHALER IH SCH (21:00)
[2018-07-05] MEDS ORDERED: K-DUR PO SCH (21:00)
[2018-07-05] MEDS ORDERED: ELAVIL PO SCH (21:00)
[2018-07-05] MEDS: ZESTRIL PO SCH (21:26)
[2018-07-05] MEDS: CRESTOR PO SCH (21:26)
[2018-07-05] MEDS: KLONOPIN PO SCH (21:27)
[2018-07-05] MEDS ORDERED: MYLANTA SUSP PO PRN (23:05)
[2018-07-05] MEDS: TYLENOL PO PRN (23:22)
[2018-07-06] MEDS: SODIUM CHLORIDE 1,000 ML IV SCH ×2 (02:46→16:51)
[2018-07-06] MEDS ORDERED: PROTONIX PO SCH (06:30)
[2018-07-06] MEDS ORDERED: ASPIRIN EC PO SCH (08:00)
[2018-07-06] MEDS: K-DUR PO SCH (08:08)
[2018-07-06] MEDS: ASPIRIN CHEWABLE PO SCH (08:08)
[2018-07-06] MEDS: ROCEPHIN 1 GM in SODIUM CHLORIDE 50 ML IV SCH (08:08)
[2018-07-06] MEDS: ZETIA PO SCH (08:09)
[2018-07-06] MEDS: CALCIUM 500 + VIT D 200 MG TABLET PO SCH (08:09)
[2018-07-06] MEDS: KLONOPIN PO SCH ×2 (08:09→20:29)
[2018-07-06] MEDS: CARDIZEM CD PO SCH (08:09)
[2018-07-06] MEDS ORDERED: NON-FORMULARY MEDICATION (Calcium Carbonate/Vitamin D3 [Calcium 500-Vit D3 400 Tablet] 1 E PO SCH (09:00)
[2018-07-06] MEDS ORDERED: NON-FORMULARY MEDICATION (Esomeprazole Magnesium [Nexium] 40 MG) PO SCH (09:00)
[2018-07-06] MEDS ORDERED: NON-FORMULARY MEDICATION (Diltiazem Hcl [Diltiazem 24hr Cd] 240 MG) PO SCH (09:00)
[2018-07-06] MEDS ORDERED: LOMOTIL PO PRN (09:46)
[2018-07-06] MEDS: ZOFRAN 4 MG/2 ML IVP PRN (10:14)
[2018-07-06] MEDS: LOVENOX SUBCUT SCH (10:15)
[2018-07-06] MEDS ORDERED: NON-FORMULARY MEDICATION (Omega-3 Fatty Acids/Fish Oil [Fish Oil 1,000 Mg Softgel] 1,000 M PO SCH (12:00)
[2018-07-06] MEDS: OMEGA-3 FISH OIL PO SCH (12:00)
[2018-07-06] MEDS: TYLENOL PO PRN (13:00)
[2018-07-06] MEDS: PROTONIX PO SCH (16:46)
[2018-07-06] MEDS: CRESTOR PO SCH (20:29)
[2018-07-06] MEDS: ZESTRIL PO SCH (20:29)
[2018-07-07] MEDS: ZOFRAN 4 MG/2 ML IVP PRN ×2 (01:56→17:54)
[2018-07-07] MEDS: SODIUM CHLORIDE 1,000 ML IV SCH ×2 (04:23→20:28)
[2018-07-07] MEDS: PROTONIX PO SCH ×2 (05:34→16:14)
[2018-07-07] MEDS: K-DUR PO SCH (07:59)
[2018-07-07] MEDS: KLONOPIN PO SCH ×2 (07:59→20:27)
[2018-07-07] MEDS: CALCIUM 500 + VIT D 200 MG TABLET PO SCH (07:59)
[2018-07-07] MEDS: ASPIRIN CHEWABLE PO SCH (07:59)
[2018-07-07] MEDS: CARDIZEM CD PO SCH (07:59)
[2018-07-07] MEDS: ROCEPHIN 1 GM in SODIUM CHLORIDE 50 ML IV SCH (07:59)
[2018-07-07] MEDS: LOVENOX SUBCUT SCH (08:00)
[2018-07-07] MEDS: ZETIA PO SCH (08:00)
[2018-07-07] MEDS: FLAGYL PO SCH ×2 (12:07→20:27)
[2018-07-07] MEDS: OMEGA-3 FISH OIL PO SCH (12:07)
[2018-07-07] MEDS: ZESTRIL PO SCH (20:27)
[2018-07-07] MEDS: CRESTOR PO SCH (20:27)
[2018-07-08] MEDS: FLAGYL PO SCH ×3 (05:41→20:20)
[2018-07-08] MEDS: PROTONIX PO SCH ×2 (05:41→17:02)
[2018-07-08] MEDS ORDERED: LASIX TAB PO SCH (06:30)
[2018-07-08] MEDS ORDERED: ASPIRIN CHEWABLE PO SCH (08:00)
[2018-07-08] MEDS ORDERED: MOBIC PO SCH (08:00)
[2018-07-08] MEDS: ROCEPHIN 1 GM in SODIUM CHLORIDE 50 ML IV SCH (08:17)
[2018-07-08] MEDS: LOVENOX SUBCUT SCH (08:17)
[2018-07-08] MEDS: SODIUM CHLORIDE 1,000 ML IV SCH (08:44)
--- NOTE | 2018-07-08 09:07 | PCM.PROG ---
Attending Provider: ATTENDING PROVIDER: Dr. TARA QUESADA This patient is seen with Jennifer Luna, Nurse Practitioner. DATE OF SERVICE: 07/08/18 SUBJECTIVE: This 83 year old WHITE/ F was hospitalized 07/05/18. The patient is sitting in bed resting comfortably. She had an episode of nausea last night after eating. She is encouraged to be up and about today. C. diff is negative. REVIEW OF SYSTEMS: CONSTITUTIONAL: Weakness and fatigue. No night sweats. No malaise, lethargy. No fever or chills. HEENT: Eyes: No visual changes. No eye pain. No eye discharge. ENT: No runny nose. No epistaxis. No sinus pain. No odynophagia. No congestion. RESPIRATORY: No cough, no congestion. No hemoptysis. No shortness of breath. CARDIOVASCULAR: No angina symptoms. No CHF symptoms. No atypical chest pain for CAD. No palpitations. No orthopnea.. GASTROINTESTINAL: Nausea. No abdominal pain. No vomiting. No diarrhea or constipation. No hematemesis. No hematochezia. GENITOURINARY: No urgency. No frequency. No dysuria. No hematuria. No obstructive symptoms. No discharge. No pain. No significant abnormal bleeding. MUSCULOSKELETAL: No musculoskeletal pain; no joint swelling. NEUROLOGICAL: Awake, alert, oriented to time, place and person. No headache. No neck pain. No syncope. No seizures. No dizziness. PSYCHIATRIC: Not anxious. No depression. No suicidal thoughts. No homicidal thoughts. SKIN: No rash. No lesions. No wounds. ENDOCRINE: No unexplained weight loss. No weight gain. HEMATOLOGIC/LYMPHATIC: No anemia. No purpura. No petechiae. No prolonged or excessive bleeding. No palpable lymph nodes. PHYSICAL EXAMINATION: GENERAL: The patient is awake, alert and oriented, sitting in bed in no distress. VITAL SIGNS: Temperature 97.9 F, Pulse 56, Respiratory Rate 26, BP 148/81, Pulse Ox 97% HEENT: Head normocephalic, atraumatic. Eyes: Extraocular muscles are intact. Pupils are equal, round and reactive to light and accommodation. Ears: No lesions. Nose appeared normal. Throat: No exudate or erythema. NECK: Supple. No JVD, no carotid bruit. No lymphadenopathy or thyromegaly. LUNGS: Diminished breath sounds. Clear to auscultation. Percussion note normal. Chest symmetrical. HEART: S1, S2, no S3. No murmurs. No cyanosis or clubbing. No ascites. Pulses: Dorsalis pedis and posterior tibial pulses +1 to +2 both sides. ABDOMEN: Soft. Non-tender. Bowel sounds active. No CVA tenderness. No mass felt. EXTREMITIES: No edema. Full range of motion of all extremities, equal. NEUROLOGIC: No focal deficit. Cranial nerves II through XII are grossly intact. No headache, no double vision or headache. SKIN: Not dry. Intact. Turgor-normal. LYMPHATIC: No palpable lymph nodes/no lymphedema. MUSCULOSKELETAL: Normal joints with no swelling. Muscle tone is normal. LAB REVIEW: 07/08/18 04:28 07/08/18 04:28 07/08/18 04:28: Sodium 136.4, Potassium 3.86, Chloride 110.8 H, Carbon Dioxide 20.5 L, Anion Gap 8.96, BUN 11.3, Creatinine 0.88, Estimated GFR (MDRD) 62.00, BUN/Creatinine Ratio 12.84, Glucose 85.6, Calcium 8.00 L, Total Bilirubin 0.47, AST 56.4 H, ALT 54.8 H, Alkaline Phosphatase 40.1 L, Total Protein 5.26 L, Albumin 3.03 L, Globulin 2.23, Albumin/Globulin Ratio 1.35 07/08/18 04:28: WBC 4.85, RBC 3.20 L, Hgb 10.8 L, Hct 32.1 L, MCV 100.3 H, MCH 33.8 H, MCHC 33.6, RDW Coeff of Christopher 12.7, Plt Count 136 L, Neutrophils % (Manual ) 43.0, Lymphocytes % (Manual) 42.0, Monocytes % (Manual) 9.0, Eosinophils % ( Manual) 2.0, Metamyelocytes % 1.0, Reactive Lymphocytes 3.0, Anisocytosis Not present ASSESSMENT: 1. Elevated liver function. 2. Acute gastroenteritis. 3. Acute dehydration - resolved. 4. Acute bronchitis - improving. PLAN: 1. Add Carafate 1 gm before meals. 2. US liver. 3. Hepatitis panel. 4. D/C IV fluids. Plan and coordination of the patient's care discussed in the presence of Dental Officer and nurse. CONDITION: Stable SCRIBED BY: KT VEGA, Carburetor Repairer scribed while in presence of service performed by Dr. Quesada/Jennifer Luna APRN on 07/08/18 ([id number])
--- NOTE | 2018-07-08 10:29 | US ---
EXAM: ULTRASOUND ABDOMEN LIMITED HISTORY: Elevated liver function tests FINDINGS: Ultrasound abdomen, limited. Fair-scale ultrasound and color Doppler was performed. Live r size was measured at 13 cm, within normal limits. Liver parenchyma demonstrated diffuse increased sound attenuation which can be consistent with steatosis. No focal hepatic lesion or evidence of int rahepatic biliary dilatation was identified. The main portal vein is patent and hepatopedal. No gallstones or gallbladder sludge. Gallbladder wall thickness was normal at 0.25 cm and the common bile duct diameter normal at 0.4 cm. The pancreas was not adequately seen secondary to shadowing fr om bowel gas. No ascites. Survey of the right kidney was unremarkable. IMPRESSION: 1. Probable fatty liver. 2. No gallbladder pathology identified. 3. Pancreas not adequately seen.
[2018-07-08] MEDS: KLONOPIN PO SCH ×2 (10:38→20:20)
[2018-07-08] MEDS: CARDIZEM CD PO SCH (10:38)
[2018-07-08] MEDS: ZETIA PO SCH (10:38)
[2018-07-08] MEDS: CALCIUM 500 + VIT D 200 MG TABLET PO SCH (10:38)
[2018-07-08] MEDS: ASPIRIN CHEWABLE PO SCH (10:38)
[2018-07-08] MEDS: K-DUR PO SCH (10:38)
[2018-07-08] MEDS: CARAFATE PO SCH ×3 (11:38→20:19)
[2018-07-08] MEDS: OMEGA-3 FISH OIL PO SCH (13:05)
[2018-07-08] MEDS: CRESTOR PO SCH (20:20)
[2018-07-08] MEDS: ZESTRIL PO SCH (20:20)
[2018-07-09] MEDS: PROTONIX PO SCH (05:42)
[2018-07-09] MEDS: CARAFATE PO SCH ×2 (05:42→11:43)
[2018-07-09] MEDS: FLAGYL PO SCH (05:43)
[2018-07-09 07:06] VITALS: BP 136/69; TEMP 98
--- NOTE | 2018-07-09 07:38 | HP ---
DATE OF SERVICE: 07/05/18 REASON FOR HOSPITALIZATION/HISTORY OF PRESENT ILLNESS: The patient went to ER last night had nausea, vomiting and diarrhea. Fever all night. Potassium was 3.1. She can't hardly walk, weak and no appetite. Lost 7 pounds since 07/01. Did not take Prednisone or Omnicef today, last Omnicef 07/03. PAST MEDICAL HISTORY: History of acute sinusitis TIA Ataxia Hypertension GERD FRANCISCO/Anxiety Carotis stenosis Chronic kidney disease, stage 3 Osteoarthritis, hip Osteoporosis PAST SURGICAL HISTORY: Polyps in bladder T&A age 6 REVIEW OF SYSTEMS: CONSTITUTIONAL: Fever, Fatigue. HEENT: Sinus drainage, no sore throat. RESPIRATORY: Cough, no congestion. CARDIOVASCULAR: No atypical chest pain for coronary artery disease. No angina , CHF symptoms, palpitations or shortness of breath. GASTROINTESTINAL: No melena. Abdominal pain. No GERD. Nausea and vomiting. GENITOURINARY: No hematuria, no prostatism, no polyuria. DIRECTOR OF STUDENT LIFE: No blackout, no dizziness, no headache, no double vision. MUSCULOSKELETAL: Osteoarthritis pain, no joint swelling. ENDOCRINE: No weight loss, no weight gain. SKIN: Not dry, no rash. PSYCHIATRIC: Not anxious, no depression, no suicidal thoughts, no homicidal thoughts. SOCIAL HISTORY: Marital Status: . Alcohol Usage: No. Tobacco Usage: No. FAMILY HISTORY: Father - liver disease Mother -CAD Brother age 32 of CAD MEDICATIONS: Lisinopril 20mg take two tablets PO daily Crestor 40mg PO daily Fish Oil 1 tablet three times a day Lasix 40mg PO 1 1/2 tablet Sun, Sun and Sunday PO once a day Nexium 40mg PO daily Prolia 60ml syringe every 6 months Zetia 10mg Po daily Aspirin 81mg PO daily Citalopram 20mg PO daily Diltiazem 240mg PO daily Meloxicam 7.5mg PO three times a week Nitroglycerin 400mcg place one spray by translingual route 0 times a day onton or under the tongue at the first sign of attack; no more than three sprays are recommended within a 15 minute period. PRN Amitriptyline 25mg PO once a day at bedtime Clonazepam 0.5mg two tablets PO tone time per day ALLERGIES: Iodine PHYSICAL EXAMINATION: V/S: Pulse 61, blood pressure 110/62, temperature 97.9, oxygen saturation 96%. 5'6, 166 pounds. GENERAL APPEARANCE: Oriented times three. HEENT: Pale. Yellow drainage. Dry Mucus membrane. NECK: No JVP, no bruits. RESPIRATORY: Decreased breath sounds. CARDIOVASCULAR: S1, S2, no S3, no murmurs. No cyanosis, clubbing. No ascites. GI/ABDOMEN: No tenderness. Bowel sounds are active. EXTREMITIES: edema, pulses +1, equal. DIRECTOR OF STUDENT LIFE: Deep tendon reflexes, sensory, motor and gait all normal. RECTAL: Dr. Villarreal 04/11EGD/PELVIC: The patient refused. ASSESSMENT: 1. Acute dehydration 2. Acute bronchitis 3. Hypokalemia 4. Abdominal pain 5. History of acute sinusitis 6. TIA 7. Ataxia 8. Hypertension 9. GERD 10.FRANCISCO/Anxiety 11.Carotis stenosis 12.Chronic kidney disease, stage 3 13.Osteoarthritis, hip 14.Osteoporosis PLAN: 1. Admit 2. Routine telemetry orders, No cardiac markers 3. CBC and CMP now and daily 4. Normal saline IV @ 75cc an hour 5. Rocephin 1 gram IV daily 6. Chest x-ray 7. Urinalysis 8. Blood culture time 2 9. O2 at 1-2 liters nasal canula PRN 10.Zofran 4mg IV Q 8 hours PRN 11.Protonix 40mg PO daily 12.Regular diet 13.Continue home medications 14.Serum amylase and lipase 15. T4 TSH 16.CT of abdomen and pelvis with and without contrast TIME SPENT: More than 70 minutes. MTDD
[2018-07-09] MEDS: K-DUR PO SCH (08:26)
[2018-07-09] MEDS: KLONOPIN PO SCH (08:26)
[2018-07-09] MEDS: ASPIRIN CHEWABLE PO SCH (08:26)
[2018-07-09] MEDS: CARDIZEM CD PO SCH (08:26)
[2018-07-09] MEDS: ZETIA PO SCH (08:26)
[2018-07-09] MEDS: CALCIUM 500 + VIT D 200 MG TABLET PO SCH (08:27)
[2018-07-09] MEDS: LOVENOX SUBCUT SCH (08:27)
--- NOTE | 2018-07-09 09:19 | PCM.PROG ---
Attending Provider: ATTENDING PROVIDER: Dr. TARA QUESADA This patient is seen with Jennifer Luna, Nurse Practitioner. DATE OF SERVICE: 07/09/18 SUBJECTIVE: This 83 year old WHITE/ F was hospitalized 07/05/18. The patient is lying in bed resting comfortably. She has been up and about, took a shower by herself this a.m. She is eating well. No diarrhea. REVIEW OF SYSTEMS: CONSTITUTIONAL: Fatigue. No night sweats. No malaise, lethargy. No fever or chills. HEENT: Eyes: No visual changes. No eye pain. No eye discharge. ENT: No runny nose. No epistaxis. No sinus pain. No odynophagia. No congestion. RESPIRATORY: No cough, no congestion. No hemoptysis. No shortness of breath. CARDIOVASCULAR: No angina symptoms. No CHF symptoms. No atypical chest pain for CAD. No palpitations. No orthopnea.. GASTROINTESTINAL: No abdominal pain. No nausea or vomiting. No diarrhea or constipation. No hematemesis. No hematochezia. GENITOURINARY: No urgency. No frequency. No dysuria. No hematuria. No obstructive symptoms. No discharge. No pain. No significant abnormal bleeding. MUSCULOSKELETAL: No musculoskeletal pain; no joint swelling. NEUROLOGICAL: Awake, alert, oriented to time, place and person. No headache. No neck pain. No syncope. No seizures. No dizziness. PSYCHIATRIC: Not anxious. No depression. No suicidal thoughts. No homicidal thoughts. SKIN: No rash. No lesions. No wounds. ENDOCRINE: No unexplained weight loss. No weight gain. HEMATOLOGIC/LYMPHATIC: No anemia. No purpura. No petechiae. No prolonged or excessive bleeding. No palpable lymph nodes. PHYSICAL EXAMINATION: GENERAL: The patient is awake, alert and oriented, lying in bed in no distress. VITAL SIGNS: Temperature 98 F, Pulse 50, Respiratory Rate 20, BP 136/69, Pulse Ox 94% HEENT: Head normocephalic, atraumatic. Eyes: Extraocular muscles are intact. Pupils are equal, round and reactive to light and accommodation. Ears: No lesions. Nose appeared normal. Throat: No exudate or erythema. NECK: Supple. No JVD, no carotid bruit. No lymphadenopathy or thyromegaly. LUNGS: Clear to auscultation. Percussion note normal. Chest symmetrical. HEART: S1, S2, no S3. No murmurs. No cyanosis or clubbing. No ascites. Pulses: Dorsalis pedis and posterior tibial pulses +1 to +2 both sides. ABDOMEN: Soft. Non-tender. Bowel sounds active. No CVA tenderness. No mass felt. EXTREMITIES: No edema. Full range of motion of all extremities, equal. NEUROLOGIC: No focal deficit. Cranial nerves II through XII are grossly intact. No headache, no double vision or headache. SKIN: Not dry. Intact. Turgor-normal. LYMPHATIC: No palpable lymph nodes/no lymphedema. MUSCULOSKELETAL: Normal joints with no swelling. Muscle tone is normal. LAB REVIEW: 07/09/18 04:40 07/09/18 04:40 07/09/18 04:40: Sodium 136.4, Potassium 3.82, Chloride 107.0, Carbon Dioxide 24.0, Anion Gap 9.22, BUN 18.8 H, Creatinine 1.15, Estimated GFR (MDRD) 45.00, BUN/Creatinine Ratio 16.34, Glucose 126.0 H, Calcium 8.53, Total Bilirubin 0.46 , AST 48.1 H, ALT 50.9 H, Alkaline Phosphatase 41.3 L, Total Protein 5.41 L, Albumin 3.26 L, Globulin 2.15, Albumin/Globulin Ratio 1.51 07/09/18 04:40: WBC 5.13, RBC 3.42 L, Hgb 11.6 L, Hct 34.9 L, MCV 102.0 H, MCH 33.9 H, MCHC 33.2, RDW Coeff of Christopher 12.8, Plt Count 136 L, Neutrophils % (Manual ) 48.0, Lymphocytes % (Manual) 41.0, Monocytes % (Manual) 5.0, Basophils % ( Manual) 1.0, Myelocytes % 1.0, Reactive Lymphocytes 4.0, Anisocytosis Not present ASSESSMENT: 1. Elevated liver function resolved. 2. Acute gastroenteritis, resolved. 3. Acute dehydration - resolved. 4. Acute bronchitis - resolved. PLAN: 1. Flagyl 500 mg b.i.d.times five days. 2. Potassium 10 mEq daily times one week. 3. BRAT diet. 4. Followup next week in the office. 5. D/C this afternoon. Plan and coordination of the patient's care discussed in the presence of Technical Asst and nurse CONDITION: Stable SCRIBED BY: KT VEGA, Doughnut Icer Machine scribed while in presence of service performed by Dr. Quesada/Jennifer Lnua APRN on 07/09/18 ([id number])
--- NOTE | 2018-07-09 10:49 | CM.DICTOOL ---
ADMISSION: 07/05/18 11:13 DISCHARGE: JULY 09, 2018 DATE OF SERVICE: 07/09/18 FINAL DIAGNOSIS ACUTE GASTROENTERITIS DEHYDRATION, RESOLVED ELEVATED LIVER ENZYMES BRONCHITS, ACUTE ACUTE ON CHRONIC KIDNEY DISEASE, STAGE 3 HYPERTENSION HYPERCHOLESTEROLEMIA CAROTID STENOSIS LUNG NODULE, 2006 TIA PERIPHERAL NEUROPATHY GERD, FIGUEROA'S ESOPHAGUS OSTEOARTHRITIS OSTEOPOROSIS DEPRESSION/ANXIETY ECHOCARDIOGRAM (12/01/2016) CAROTID ULTRASOUND (11/29/2016) PFT (12/02/2015) CARDIAC CATHETERIZATION 1991, 2000 BLADDER POLYPECTOMY BILATERAL CATARACT EXTRACTION, LENS IMPLANT (2012) LAST VITALS Temp Pulse Resp BP Pulse Ox 98 F 50 L 20 136/69 94 L 07/09/18 07:05 07/09/18 07:05 07/09/18 07:05 07/09/18 07:05 07/09/18 07:05 TAKE THESE MEDICATIONS AT HOME Albuterol Sulfate (Proair Hfa) 2 puff IH Q4-6H PRN PRN Reason: shortness of air Aspirin (Aspirin Chewable) 81 mg PO DAILYWM [facility] Last Admin: 07/09/18 08:26 Dose: 81 mg Amitriptlyline HCL (Elavil) 25 mg PO BEDTIME Last Admin: Budesonide/Formoterol Fumarate (Symbicort 160-4.5 mcg inhaler) 2 puffs BID Last Adm: Calcium/Vitamin D (Calcium 500 + Vit D 200 Mg Tablet) 1 each PO DAILY [facility] Last Admin: 07/09/18 08:27 Dose: 1 each Clonazepam (Klonopin) 0.5 mg PO BID [facility] Last Admin: 07/09/18 08:26 Dose: 0.5 mg Diltiazem HCl (Cardizem Cd) 240 mg PO DAILY [facility] Last Admin: 07/09/18 08:26 Dose: 240 mg Exomeprazole Magnesium (Nexium) 40 mg PO DAILY Last Admin: Ezetimibe (Zetia) 10 mg PO DAILY [facility] Last Admin: 07/09/18 08:26 Dose: 10 mg Fish Oil ([place]-3 Fish Oil) 1,000 mg PO 1200 [facility] Last Admin: 07/08/18 13:05 Dose: 1,000 mg Furosemide (Lasix Tab) 20 mg PO MoWeFr@0630 [facility] Last Admin: 07/08/18 05:42 Dose: 20 mg Lisinopril (Zestril) 20 mg PO BEDTIME [facility] Last Admin: 07/08/18 20:20 Dose: 20 mg Meloxicam (Mobic) 7.5 mg PO MoWeFr@0800 [facility] Last Admin: 07/08/18 10:38 Dose: 7.5 mg Metronidazole (Flagyl) 500 mg PO BID [facility] Last Admin: 07/09/18 05:43 Dose: 500 mg Odansetron (Zofran Odt) 4 mg PO Q8H PRN N/V Last Adm: Potassium Chloride 10 meq PO daily Last Adm: Rosuvastatin Calcium (Crestor) 40 mg PO BEDTIME [facility] Last Admin: 07/08/18 20:20 Dose: 40 mg ALLERGIES iodine Allergy (Verified 07/04/18 17:36) sulfamethoxazole [From Bactrim] Adverse Reaction (Verified 07/04/18 17:36) trimethoprim [From Bactrim] Adverse Reaction (Verified 07/04/18 17:36) DISCONTINUED MEDICATIONS NONE NEW PRESCRIPTIONS: FLAGYL 500 MG PO TWICE A DAY FOR FIVE DAYS POTASSIUM CHLORIDE 10 MEQ PO DAILY FOR TEN DAYS SMOKING: NON SMOKER DISEASE SPECIFIC EDUCATION: BRONCHITIS DEHYDRATION GASTRITIS LAB REVIEW: 07/09/18 04:40 07/09/18 04:40 07/09/18 04:40: Sodium 136.4, Potassium 3.82, Chloride 107.0, Carbon Dioxide 24.0, Anion Gap 9.22, BUN 18.8 H, Creatinine 1.15, Estimated GFR (MDRD) 45.00, BUN/Creatinine Ratio 16.34, Glucose 126.0 H, Calcium 8.53, Total Bilirubin 0.46 , AST 48.1 H, ALT 50.9 H, Alkaline Phosphatase 41.3 L, Total Protein 5.41 L, Albumin 3.26 L, Globulin 2.15, Albumin/Globulin Ratio 1.51 07/09/18 04:40: WBC 5.13, RBC 3.42 L, Hgb 11.6 L, Hct 34.9 L, MCV 102.0 H, MCH 33.9 H, MCHC 33.2, RDW Coeff of Christopher 12.8, Plt Count 136 L, Neutrophils % (Manual ) 48.0, Lymphocytes % (Manual) 41.0, Monocytes % (Manual) 5.0, Basophils % ( Manual) 1.0, Myelocytes % 1.0, Reactive Lymphocytes 4.0, Anisocytosis Not present PLAN: DISCHARGE HOME TODAY 07/09/18 DIET: REGULAR DIET IF STOMACH UPSET OCCURS, RETURN TO BLAND DIET ACTIVITY: GRADUALLY RESUME ACTIVITY TOLERATED, PLENTY OF REST FOLLOW UP WITH DR. ARROYO ON SundayJune AT 145 PM. PLEASE CALL AND RESCHEDULE IF UNABLE TO KEEP THAT APPOINTMENT. [phone]. CODE STATUS: DO NOT RESUSCITATE ALERT, ORIENTED TIMES THREE. MRS. MOREL IS AGREEABLE WITH DISCHARGE HOME TODAY. SHE IS INDEPENDENT WITH ALL ACTIVITIES OF DAILY LIVING. SHE DOES NOT REQUIRE USE OF ASSISTANCE DEVICE FOR AMBULATION. NO LOOSE STOOLS SINCE 07/07. HER APPETITE IS GOOD WITH MEAL INTAKE 50%-100%. DENIES ABD PAIN OR TENDERNESS, NO NAUSEA OR VOMITING TODAY. HYDRATION STATUS IS GOOD. SKIN IS INTACT. Vito Arroyo MD Jennifer Luna APRN
[2018-07-09] MEDS: OMEGA-3 FISH OIL PO SCH (12:00)
--- NOTE | 2018-07-09 13:20 | PN ---
DATE OF SERVICE: 07/07/18 SUBJECTIVE: The patient laying in her bed and states that she is feeling better. She has been eating slightly more. She had once episode of diarrhea through the night. They did do a stool for C-Diff however it is still pending. CT scan was reviewed and it does show acute gastroenteritis. Kidney function has improved and she is less dizzy so dehydration is improving. She states her appetite is better today. REVIEW OF SYSTEMS: CONSTITUTIONAL: No night sweats. Fatigue. No fever or chills. Weakness. HEENT: Eyes: No visual changes. No eye pain. No eye discharge. ENT: No runny nose. No epistaxis. No sinus pain. No sore throat. No odynophagia. No congestion. RESPIRATORY: No cough, no congestion. No hemoptysis. No shortness of breath. CARDIOVASCULAR: No angina symptoms. No CHF symptoms. No atypical chest pain for CAD. No palpitations. No PND. No orthopnea. GASTROINTESTINAL: No abdominal pain. No nausea or vomiting. Diarrhea. No hematemesis. No hematochezia. Decreased appetite. GENITOURINARY: No urgency. No frequency. No dysuria. No hematuria. No obstructive symptoms. No discharge. No pain. No significant abnormal bleeding. MUSCULOSKELETAL: No musculoskeletal pain; no joint swelling. NEUROLOGICAL: No headache. No neck pain. No syncope. No seizures. No dizziness. PSYCHIATRIC: Not anxious. No depression. No suicidal thoughts. No homicidal thoughts. SKIN: No rash. No lesions. No wounds. ENDOCRINE: No unexplained weight loss. No weight gain. HEMATOLOGIC/LYMPHATIC: No anemia. No purpura. No petechiae. No prolonged or excessive bleeding. No palpable lymph nodes. PHYSICAL EXAMINATION: VITAL SIGNS: Temperature 97.9, heart rate 68, respiratory rate 20, blood pressure 112/70 and pulse ox 98%. HEENT: Head normocephalic, atraumatic. Eyes: Extraocular muscles are intact. Pupils are equal, round and reactive to light and accommodation. Ears: No lesions. Nose appeared normal. Throat: No exudate or erythema. NECK: Supple. No JVD, no carotid bruit. No lymphadenopathy or thyromegaly. LUNGS: Diminished breath sounds bilaterally. Clear to auscultation. Percussion note normal. Chest symmetrical. HEART: S1, S2, no S3. No murmurs. No cyanosis or clubbing. No ascites. Pulses: Dorsalis pedis and posterior tibial pulses +1 to +2 bilaterally. ABDOMEN: Soft. Nontender. Bowel sounds active. No CVA tenderness. No mass felt. EXTREMITIES: No edema. Full range of motion of all extremities, equal. NEUROLOGIC: No focal deficit. Cranial nerves II through XII are grossly intact. No headache, no double vision or headache. SKIN: Not dry. Intact. Turgor - normal. LYMPHATIC: No palpable lymph nodes/no lymphedema. MUSCULOSKELETAL: Normal joints with no swelling. Muscle tone is normal. LABS: BUN 25, creatinine 1.1, sodium 138, potassium 4.3, hgb 11.4, hct 35.3. ASSESSMENT: 1. Acute gastroenteritis-improving 2. Dehydration-improving 3. Fxeijwfe-C-Shny pending PLAN: 1. Will discontinue Rocephin after today as it is her 3rd dose. 2. Start her on Flagyl 500mg PO three times a day 3. Decrease her IV fluids to 50cc an hour. TIME SPENT: More than 30 minutes. Plan and coordination of the patient's care discussed in the presence of nurse. SARAH
--- NOTE | 2018-07-10 07:37 | DS ---
DATE OF SERVICE: 07/09/18 FINAL DIAGNOSIS ACUTE GASTROENTERITIS DEHYDRATION, RESOLVED ELEVATED LIVER ENZYMES BRONCHITIS, ACUTE ACUTE ON CHRONIC KIDNEY DISEASE, STAGE 3 HYPERTENSION HYPERCHOLESTEROLEMIA CAROTID STENOSIS LUNG NODULE, 2006 TIA PERIPHERAL NEUROPATHY GERD, FIGUEROA'S ESOPHAGUS OSTEOARTHRITIS OSTEOPOROSIS DEPRESSION/ANXIETY ECHOCARDIOGRAM (12/01/2016) CAROTID ULTRASOUND (11/29/2016) PFT (12/02/2015) CARDIAC CATHETERIZATION 1992, 2000 BLADDER POLYPECTOMY BILATERAL CATARACT EXTRACTION, LENS IMPLANT (2012) LAST VITALS: Temp Pulse Resp BP Pulse Ox 98 F 50 L 20 136/69 94 L 07/09/18 07:05 07/09/18 07:05 07/09/18 07:05 07/09/18 07:05 07/09/18 07:05 DISCHARGE INSTRUCTIONS: DISCHARGE HOME TODAY 07/09/18. FOLLOW UP WITH DR. QUESADA ON SundayJune AT 145 PM. PLEASE CALL AND RESCHEDULE IF UNABLE TO KEEP THAT APPOINTMENT. . CODE STATUS: DO NOT RESUSCITATE TAKE THESE MEDICATIONS AT HOME: Albuterol Sulfate (ProAir Hfa) 2 puff IH Q4-6H PRN Aspirin (Aspirin Chewable) 81 mg PO DAILYWM [facility] Amitriptyline HCL (Elavil) 25 mg PO BEDTIME Budesonide/Formoterol Fumarate (Symbicort 160-4.5 mcg inhaler) 2 puffs BID Calcium/Vitamin D (Calcium 500 + Vit D 200 Mg Tablet) 1 each PO DAILY [facility] Clonazepam (Klonopin) 0.5 mg PO BID [facility] Diltiazem HCl (Cardizem Cd) 240 mg PO DAILY [facility] Ezetimibe (Zetia) 10 mg PO DAILY [facility] Fish Oil ([place]-3 Fish Oil) 1,000 mg PO 1200 [facility] Furosemide (Lasix Tab) 20 mg PO MoWeFr@0630 [facility] Lisinopril (Zestril) 20 mg PO BEDTIME [facility] Meloxicam (Mobic) 7.5 mg PO MoWeFr@0800 [facility] Metronidazole (Flagyl) 500 mg PO BID [facility] Ondansetron (Zofran Odt) 4 mg PO Q8H PRN N/V Potassium Chloride 10 meq PO daily Rosuvastatin Calcium (Crestor) 40 mg PO BEDTIME [facility] ALLERGIES: iodine Allergy (Verified 07/04/18 17:36) sulfamethoxazole [From Bactrim] Adverse Reaction (Verified 07/04/18 17:36) trimethoprim [From Bactrim] Adverse Reaction (Verified 07/04/18 17:36) DISCONTINUED MEDICATIONS: NONE NEW PRESCRIPTIONS: FLAGYL 500 MG PO TWICE A DAY FOR FIVE DAYS POTASSIUM CHLORIDE 10 MEQ PO DAILY FOR TEN DAYS SMOKING: NON SMOKER DISEASE SPECIFIC EDUCATION: BRONCHITIS DEHYDRATION GASTRITIS DIET: REGULAR DIET; IF STOMACH UPSET OCCURS, RETURN TO BLAND DIET ACTIVITY: GRADUALLY RESUME ACTIVITY TOLERATED, PLENTY OF REST HOSPITAL COURSE: The patient was admitted 07/05/18. This an 83 year old female who was seen in the office on 07/05/18. She was unable to stand up on her own. She appeared to acutely dehydrated. She had had some significant diarrhea, had already been to the emergency room twice this week in the ER one day before her Potassium was 3.1. We admitted her from the office for acute gastroenteritis, hypokalemia, acute dehydration. We placed her on IV fluids at 83cc an hour normal saline. I did a CT of the abdomen and pelvis which just showed acute gastroenteritis. We started her on Potassium 40meq PO twice a day. We gave her Zofran 4mg IV Q 6 hours as needed along with BRAT diet. Started her on Protonix 40mg twice a day. Over the course of several days her kidney improved, her potassium normalized. Yesterday she was up and about some still unsteady this morning. She was up an about and able to showed on her own. She has not had any diarrhea for 24 hours. Initially her U/A was abnormal so I placed on Rocephin 1gram IV daily then after the urine culture came back negative I discontinued the Rocephin and did place her some Flagyl 500mg PO three times a day due to the continuing diarrhea and weakness. Again she has not had fever or diarrhea for the past 24 hours. She was febrile on admission with a temperature of 100.3 in the office. She had also had a fever for several day, had fever in the emergency room and had previously been sent home. Blood pressure has been well controlled again she has been eating a normal diet for the past 24 hours and has tolerated this well. She was up and about with no dizziness today. She states that she is feeling better. We send her home today in stable condition. She will followup up with us next week. She is to continue with increased fluids and go home on Flagyl PO 500mg twice a day for next 5 days. TIME SPENT: More than 60 minutes. MTDD
== END 2018-07-09 12:40 | disposition home or self-care (01) | DRG 203 ==
LOC: MEDSURG A 11:13
PROVIDERS: ADMIT Internal Medicine; ATTEND Internal Medicine
DX: J20.9 Acute bronchitis, unspecified (principal); E86.0 Dehydration; E78.00 Pure hypercholesterolemia, unspecified; E87.6 Hypokalemia; I10 Essential (primary) hypertension; I65.29 Occlusion and stenosis of unspecified carotid artery; G62.9 Polyneuropathy, unspecified; K21.9 Gastro-esophageal reflux disease without esophagitis; K22.70 Barrett's esophagus without dysplasia; N18.3 Chronic kidney disease, stage 3 (moderate); M19.90 Unspecified osteoarthritis, unspecified site; M81.0 Age-related osteoporosis without current pathological fracture; F41.8 Other specified anxiety disorders; R94.5 Abnormal results of liver function studies; R11.2 Nausea with vomiting, unspecified; R19.7 Diarrhea, unspecified; R50.9 Fever, unspecified; R53.1 Weakness; R27.0 Ataxia, unspecified; R10.9 Unspecified abdominal pain; Z86.73 Personal history of transient ischemic attack (TIA), and cerebral infarction without residual deficits
CPT/HCPCS: 36415; 80053; 80074; 81001; 82150; 83690; 84439; 84443; 85007; 85025; 87040; 87493; 93005; 93010

== ENCOUNTER 2018-08-15 11:49 | Observation (INO) ==
[2018-08-15 12:35] VITALS: BMI 28.3
[2018-08-15] MEDS ORDERED: NITROSTAT SL PRN (12:57)
[2018-08-15] MEDS ORDERED: VISTARIL INJ IM PRN (12:57)
[2018-08-15] MEDS ORDERED: ATROPINE SULFATE PFS IVP PRN (12:57)
[2018-08-15] MEDS ORDERED: SODIUM CHLORIDE 500 ML IV SCH (13:30)
--- NOTE | 2018-08-15 14:19 | DI ---
EXAM: Single view of the chest. History: Chest pain and fatigue Comparison: Chest radiograph 07/05/2018 Findings: Heart size is normal. No focal consolidation. No appreciable pleural fluid and no pneumo thorax. No acute osseous abnormalities. Atherosclerotic vascular calcifications of the aortic knob. Impression: No acute cardiopulmonary process
[2018-08-15] MEDS ORDERED: SOLU-CORTEF 250 MG IVP SCH (14:30)
[2018-08-15] MEDS: SODIUM CHLORIDE 1,000 ML IV SCH (15:09)
[2018-08-15] MEDS: CEPHALEXIN 500 MG PO SCH ×2 (15:09→21:22)
[2018-08-15] MEDS: XOPENEX 1.25 MG NEB SCH (19:25)
[2018-08-15] MEDS ORDERED: BUDESONIDE IH SCH (21:00)
[2018-08-15] MEDS ORDERED: [UNRECOGNIZED DRUG - OTHER] IH SCH (21:00)
[2018-08-15] MEDS ORDERED: FORMOTEROL FUMARATE IH SCH (21:00)
[2018-08-15] MEDS: AMITRIPTYLINE HCL 25 MG PO SCH (21:21)
[2018-08-15] MEDS: NON-FORMULARY MEDICATION (Clonazepam [Klonopin] 0.5 MG) PO SCH (21:24)
[2018-08-15] MEDS: NON-FORMULARY MEDICATION (Rosuvastatin Calcium [Crestor] 40 MG) PO SCH (21:25)
[2018-08-15] MEDS: NON-FORMULARY MEDICATION (Lisinopril [Zestril] 20 MG) PO SCH (21:25)
[2018-08-16] MEDS: SODIUM CHLORIDE 1,000 ML IV SCH ×2 (01:59→05:55)
[2018-08-16] MEDS: XOPENEX 1.25 MG NEB SCH ×2 (05:09→17:21)
[2018-08-16] MEDS: NON-FORMULARY MEDICATION (Esomeprazole Magnesium [Nexium] 40 MG) PO SCH (05:41)
[2018-08-16] MEDS ORDERED: ASPIRIN EC PO SCH (08:00)
[2018-08-16] MEDS: PROTONIX PO SCH ×2 (09:11→18:15)
--- NOTE | 2018-08-16 09:24 | PCM.PROG ---
Attending Provider: ATTENDING PROVIDER: Dr. TARA QUESADA DATE OF SERVICE: 08/16/18 SUBJECTIVE: This 83 year old WHITE/ F was hospitalized 08/15/18 with chest pain across the chest. The patient has a lot of gas and GI symptoms. The patient said after she got into my office and admitted to the hospital she there wasn't any chest pain, non-exertional. The patient is on Mobic. She recently has Colitis type of symptoms. REVIEW OF SYSTEMS: CONSTITUTIONAL: No night sweats. No fatigue, malaise, lethargy. No fever or chills. HEENT: Eyes: No visual changes. No eye pain. No eye discharge. ENT: No runny nose. No epistaxis. No sinus pain. No odynophagia. No congestion. RESPIRATORY: No cough, no congestion. No hemoptysis. No shortness of breath. CARDIOVASCULAR: No angina symptoms. No CHF symptoms. No atypical chest pain for CAD. No palpitations. No orthopnea.. GASTROINTESTINAL: No abdominal pain. No nausea or vomiting. No diarrhea or constipation. No hematemesis. No hematochezia. Gas GENITOURINARY: No urgency. No frequency. No dysuria. No hematuria. No obstructive symptoms. No discharge. No pain. No significant abnormal bleeding. MUSCULOSKELETAL: No musculoskeletal pain; no joint swelling. NEUROLOGICAL: Awake, alert, oriented to time, place and person. No headache. No neck pain. No syncope. No seizures. No dizziness. PSYCHIATRIC: Not anxious. No depression. No suicidal thoughts. No homicidal thoughts. SKIN: No rash. No lesions. No wounds. ENDOCRINE: No unexplained weight loss. No weight gain. HEMATOLOGIC/LYMPHATIC: No anemia. No purpura. No petechiae. No prolonged or excessive bleeding. No palpable lymph nodes. PHYSICAL EXAMINATION: GENERAL: The patient is awake, alert and oriented, lying in bed in no distress. VITAL SIGNS: Temperature 98.0 F, Pulse 57, Respiratory Rate 18, BP 168/75, Pulse Ox 95% HEENT: Head normocephalic, atraumatic. Eyes: Extraocular muscles are intact. Pupils are equal, round and reactive to light and accommodation. Ears: No lesions. Nose appeared normal. Throat: No exudate or erythema. NECK: Supple. No JVD, no carotid bruit. No lymphadenopathy or thyromegaly. LUNGS: Clear to auscultation. Percussion note normal. Chest symmetrical. HEART: S1, S2, no S3. No murmurs. No cyanosis or clubbing. No ascites. Pulses: Dorsalis pedis and posterior tibial pulses +1 to +2 both sides. ABDOMEN: Soft. Non-tender. Bowel sounds active. No CVA tenderness. No mass felt. EXTREMITIES: No edema. Full range of motion of all extremities, equal. NEUROLOGIC: No focal deficit. Cranial nerves II through XII are grossly intact. No headache, no double vision or headache. SKIN: Warm and dry. Intact. Turgor-normal. LYMPHATIC: No palpable lymph nodes/no lymphedema. MUSCULOSKELETAL: Normal joints with no swelling. Muscle tone is normal. LAB REVIEW: 08/16/18 04:30 08/16/18 04:30 08/16/18 04:30: Sodium 139.3, Potassium 4.56, Chloride 105.7, Carbon Dioxide 27.4, Anion Gap 10.76, BUN 24.9 H, Creatinine 1.14, Estimated GFR (MDRD) 46.00, BUN/Creatinine Ratio 21.84, Glucose 107.6 H, Calcium 8.60, Total Bilirubin 0.44 , AST 24.4, ALT 16.3, Alkaline Phosphatase 40.2 L, Total Protein 5.70 L, Albumin 3.51, Globulin 2.19, Albumin/Globulin Ratio 1.60 08/16/18 04:30: WBC 5.83, RBC 3.28 L, Hgb 11.2 L, Hct 34.1 L, MCV 104.0 H, MCH 34.1 H, MCHC 32.8, RDW Coeff of Christopher 12.9, Plt Count 177, Immature Gran % (Auto) 0.2, Neut % (Auto) 46.4, Lymph % (Auto) 41.9, [place] % (Auto) 9.3, Eos % (Auto) 1.9, Baso % (Auto) 0.3, Immature Gran # (Auto) 0.0, Neut # (Auto) 2.7, Lymph # ( Auto) 2.4, [place] # (Auto) 0.5, Eos # (Auto) 0.1, Baso # (Auto) 0.0 08/15/18 21:09: Total Creatine Kinase 45.9, Troponin I < 0.012 08/15/18 18:05: Urine Color Yellow, Urine Clarity Clear, Urine pH 6.0, Ur Specific [place] 1.010, Urine Protein Negative, Urine Glucose (UA) Negative, Urine Ketones Negative, Urine Blood Negative, Urine Nitrite Negative, Urine Bilirubin Negative, Urine Urobilinogen 1.0, Ur Leukocyte Esterase Negative 08/15/18 14:10: Total Creatine Kinase 47.7, Troponin I < 0.012 08/15/18 14:10: Sodium 138.4, Potassium 4.23, Chloride 103.2, Carbon Dioxide 25.9, Anion Gap 13.53, BUN 25.7 H, Creatinine 1.22, Estimated GFR (MDRD) 42.00, BUN/Creatinine Ratio 21.06, Glucose 122.4 H, Calcium 8.85, Total Bilirubin 0.60 , AST 24.9, ALT 19.3, Alkaline Phosphatase 42.8 L, Total Protein 6.48, Albumin 4.06, Globulin 2.42, Albumin/Globulin Ratio 1.67 08/15/18 14:10: WBC 7.04, RBC 3.59 L, Hgb 12.1, Hct 36.7 L, MCV 102.2 H, MCH 33.7 H, MCHC 33.0, RDW Coeff of Christopher 12.8, Plt Count 203, Immature Gran % (Auto) 0.3, Neut % (Auto) 61.2, Lymph % (Auto) 29.8, [place] % (Auto) 7.0, Eos % (Auto) 1.4, Baso % (Auto) 0.3, Immature Gran # (Auto) 0.0, Neut # (Auto) 4.3, Lymph # ( Auto) 2.1, [place] # (Auto) 0.5, Eos # (Auto) 0.1, Baso # (Auto) 0.0 ASSESSMENT: Please see below. 1. Chest pain seems to be non cardiac could be related to reflux or non- steroidal antiinflammatories. PLAN: 1. Discontinue Mobic 2. Start on Protonix 3 Monitor heart with cardiac markers and serial EKGs. We will look into cardiac workup. 4. 2DM Mode echo Plan and coordination of the patient's care discussed in the presence of Glaze Maker and nurse. SCRIBED BY: KAMRAN FAUSTIN Political Science Instructor scribed while in presence of service performed by Dr. TARA QUESADA on 08/16/18 ([id number])
[2018-08-16] MEDS: CEPHALEXIN 500 MG PO SCH ×3 (09:44→20:39)
[2018-08-16] MEDS: NON-FORMULARY MEDICATION (Diltiazem Hcl [Diltiazem 24hr Cd] 240 MG) PO SCH (09:45)
[2018-08-16] MEDS: EZETIMIBE 10 MG PO SCH (09:46)
[2018-08-16] MEDS: NON-FORMULARY MEDICATION (Clonazepam [Klonopin] 0.5 MG) PO SCH ×2 (12:12→20:38)
[2018-08-16] MEDS: NON-FORMULARY MEDICATION (Omega-3 Fatty Acids/Fish Oil [Fish Oil 1,000 Mg Softgel] 1,000 M PO SCH (12:17)
[2018-08-16] MEDS: NON-FORMULARY MEDICATION (Calcium Carbonate/Vitamin D3 [Calcium 500-Vit D3 400 Tablet] 1 E PO SCH (12:17)
[2018-08-16] MEDS ORDERED: NON-FORMULARY MEDICATION (Meloxicam [Mobic] 7.5 MG) PO SCH (13:21)
[2018-08-16] MEDS ORDERED: ASPIRIN 81 MG PO SCH (13:21)
[2018-08-16] MEDS ORDERED: NON-FORMULARY MEDICATION (Furosemide [Lasix Tab] 20 MG) PO SCH (13:21)
--- NOTE | 2018-08-16 13:58 | PN ---
DATE OF SERVICE: 08/15/18 SUBJECTIVE: The patient was seen and examined with the nurse practitioner in the office and was hospitalized with complaint of feeling weak, tired, chest pain. Chest pain seems to be somewhat atypical. EKG sinus rhythm, unchanged. Cardiac markers negative. PHYSICAL EXAMINATION: HEENT: Head normocephalic, atraumatic. Eyes: Extraocular muscles are intact. Pupils are equal, round and reactive to light and accommodation. Ears: No lesions. Nose appeared normal. Throat: No exudate or erythema. NECK: Supple. No JVD, no carotid bruit. No lymphadenopathy or thyromegaly. LUNGS: Clear to auscultation. Percussion note normal. Chest symmetrical. HEART: S1, S2, no S3. No murmurs. No cyanosis or clubbing. No ascites. Pulses: Dorsalis pedis and posterior tibial pulses +1 to +2 bilaterally. ABDOMEN: Soft. Nontender. Bowel sounds active. No CVA tenderness. No mass felt. EXTREMITIES: No edema. Full range of motion of all extremities, equal. NEUROLOGIC: No focal deficit. Cranial nerves II through XII are grossly intact. No headache, no double vision or headache. SKIN: Not dry. Intact. Turgor - normal. LYMPHATIC: No palpable lymph nodes/no lymphedema. MUSCULOSKELETAL: Normal joints with no swelling. Muscle tone is normal. The patient may need cardiac workup once we feel cardiovascular upton she is stable. CONDITION: Stable. TIME SPENT: More than 30 minutes. Plan and coordination of the patient's care discussed in the presence of nurse. SARAH
[2018-08-16] MEDS: NON-FORMULARY MEDICATION (Lisinopril [Zestril] 20 MG) PO SCH (20:38)
[2018-08-16] MEDS: NON-FORMULARY MEDICATION (Rosuvastatin Calcium [Crestor] 40 MG) PO SCH (20:38)
[2018-08-16] MEDS: AMITRIPTYLINE HCL 25 MG PO SCH (20:39)
[2018-08-17 05:24] VITALS: BP 155/73; TEMP 97.6
[2018-08-17] MEDS: XOPENEX 1.25 MG NEB SCH (05:43)
[2018-08-17] MEDS: NON-FORMULARY MEDICATION (Esomeprazole Magnesium [Nexium] 40 MG) PO SCH (05:49)
[2018-08-17] MEDS: PROTONIX PO SCH (05:49)
[2018-08-17] MEDS: NON-FORMULARY MEDICATION (Diltiazem Hcl [Diltiazem 24hr Cd] 240 MG) PO SCH (08:49)
[2018-08-17] MEDS: EZETIMIBE 10 MG PO SCH (08:50)
[2018-08-17] MEDS: NON-FORMULARY MEDICATION (Calcium Carbonate/Vitamin D3 [Calcium 500-Vit D3 400 Tablet] 1 E PO SCH (08:51)
[2018-08-17] MEDS: CEPHALEXIN 500 MG PO SCH (08:52)
[2018-08-17] MEDS: NON-FORMULARY MEDICATION (Clonazepam [Klonopin] 0.5 MG) PO SCH (08:53)
[2018-08-17] MEDS: NON-FORMULARY MEDICATION (Omega-3 Fatty Acids/Fish Oil [Fish Oil 1,000 Mg Softgel] 1,000 M PO SCH (13:40)
--- NOTE | 2018-08-20 12:28 | ECHO2D ---
Date of Exam: 08/17/18 Ordering Physician: DR. TARA QUESADA Room #: 111 Reason for Echo: CHEST PAIN, HTN M-Mode Normal Adult Results LV Dimensions Normal Adult Results AoV Opening excursions >1.6 >1.6 LVEDD-base- 3.5-5.8 4.4 Ao root dimensions 2.0-3.7 3.2 LVESD-base- 3.1-4.6 L. Atrium dimensions 1.9-3.8 4.4 Post. Wall thickness 0.8-1.1 1.1 IV septum (thickness) 0.7-1.2 1.1 Post. Wall excursion 0.72-1.3 NORMAL Septal motion NORMAL Systolic motion R. Ventricular cavity 1.5-2.0 NORMAL LVEF 60% 56% Paradoxical septal wall motion NORMAL 2-D : 2-D M Mode Echocardiogram was performed using apical four chamber and left parasternal long and short axis views. Mitral, tricuspid and aortic valves appear to be normal. Contractility of the left ventricle seems to be normal, so is the cavity size. ENLARGED LEFT ATRIAL CAVITY. Aortic root appears to be normal. There is no pericardial effusion. There is no thrombus noted in the left ventricular or left aortic cavity. No mitral valve prolapse noted. M-MODE: MV: E WAVE GREATER THAN A WAVE AV: NORMAL TV: NORMAL PV: CHAMBER SIZE: ENLARGED LEFT ATRIAL CAVITY WALL MOTION: NORMAL PERICARDIUM: NORMAL INTERPRETATION: 1. STIFF LEFT VENTRICLE 2. ENLARGED LEFT ATRIAL CAVITY 3. NORMAL LEFT VENTRICULAR CONTRACTILITY 4. NORMAL VALVES MTDD
--- NOTE | 2018-08-26 14:05 | DS ---
DATE OF SERVICE: 08/17/18 FINAL DIAGNOSIS: 1. CHEST PAIN LIKELY ESOPHAGEAL SPASM FROM NONSTEROIDAL ANTIINFLAMMATORY. 2. DYSLIPIDEMIA. 3. HYPERTENSION. 4. NEUROPATHY. 5. CHRONIC LUNG DISEASE. 6. ANXIETY DISORDER. DISCHARGE INSTRUCTIONS: Followup appointment on , 08/22/18 at 10:30 a.m. MEDICATIONS AT DISCHARGE: DO NOT TAKE NEXIUM NEW PRESCRIPTIONS: Protonix 40 mg p.o. daily times 10 days Tylenol two tablets twice a day for arthritis DISCONTINUED MEDICATIONS: Discontinue Meloxicam or Mobic DIET INSTRUCTIONS: Heart Healthy ACTIVITY: Resume as tolerated SMOKING: N/A DISEASE SPECIFIC EDUCATION: Reflux, gas associated with chest pain Dehydration Medications HOSPITAL COURSE: 83-year-old white female hospitalized for observation after she was seen at the office with many nonspecific complaints. One of them was chest pain the day prior to hospitalization associated with gas. The patient's main problem was gas and reflux likely from eating late at night and also from taking Meloxicam. The patient was strongly advised to discontinue Meloxicam. In the hospital the patient was treated with IV fluids, dehydration resolved. Her hydration status improved. She started feeling better. She was put on Protonix. Meloxicam was discontinued. The patient's cardiac status was normal with normal EKGs with LVH. She had an echo done which showed normal LV contractility with LVH. Cardiac markers were negative. She was up and about with no further chest pain. The patient declined to have stress test, Dobutamine or chemical stress test for now. CONDITION AT TIME OF DISCHARGE: Stable. TIME SPENT: More than 60 minutes. [facility]
--- NOTE | 2018-08-26 14:07 | PN ---
BILLING 08/15/18 ADMISSION DAY LEVEL 5 08/16/18 INTERMEDIATE 08/17/18 DISCHARGE - [facility]
== END 2018-08-17 13:12 | disposition home or self-care (01) ==
LOC: INTOOBSV 11:49 → MEDSURG A 11:49 → UNDOADMOB 11:49 → MEDSURG A 11:49
PROVIDERS: ADMIT Internal Medicine; ATTEND Internal Medicine
DX: R07.9 Chest pain, unspecified (principal); E78.5 Hyperlipidemia, unspecified; I10 Essential (primary) hypertension; G62.9 Polyneuropathy, unspecified; F41.9 Anxiety disorder, unspecified; K21.9 Gastro-esophageal reflux disease without esophagitis; E86.0 Dehydration; J44.9 Chronic obstructive pulmonary disease, unspecified; N18.3 Chronic kidney disease, stage 3 (moderate)
CPT/HCPCS: 36415; 80053; 81001; 82550; 84484; 85025; 93005; 93010; 94640; 96360; 96361

== ENCOUNTER 2018-10-27 10:41 | Emergency (ER) ==
[2018-10-27 10:41] VITALS: BMI 28.3
[2018-10-27 10:52] VITALS: BP 136/76; TEMP 98
[2018-10-27] MEDS ORDERED: TYLENOL PO STA (10:54)
--- NOTE | 2018-10-27 11:20 | CT ---
EXAM: CT scan of the head without contrast HISTORY: Fall TECHNIQUE: Helical imaging of the head was performed without contrast. 5 mm thin axial images and c oronal and sagittal images were provided for interpretation. Comparison CT scan of the head without contrast dated 04/09/2018. FINDINGS: The ferreira-white interface appears normal. No acute hemorrhages are seen. There is no mass effect. Basal cisterns are patent. The lateral ventricles and cortical sulci are normal. The basa l cisterns are patent. The paranasal sinuses and mastoid air cells are clear. The calvarium appears normal. The extracranial soft tissues are normal. IMPRESSION: No acute traumatic abnormalities are seen.
--- NOTE | 2018-10-27 11:33 | CT ---
EXAM: CT scan of the cervical spine without contrast History. HISTORY: Fall TECHNIQUE: Helical imaging of the cervical spine was performed without contrast. Sagittal and coron al reconstructions and axial images were provided for interpretation. FINDINGS: There is straightening of the cervical spine. The occipital condyles, some ring appear in tact. The odontoid process and C2 vertebral body appear normal. The spinous processes are intact. There is a normal alignment of the facet joints. No acute fractures are seen. IMPRESSION: No evidence of acute fracture dislocation seen within the cervical spine.
--- NOTE | 2018-10-27 11:34 | ED.PDOC ---
General ED Provider: Dr. NICHOLAS BRAY-ER Chief Complaint: Head Injury Stated Complaint: i fell and my head hurts Time Seen by Physician: 10:45 Mode of Arrival: Wheelchair Information Source: Patient Exam Limitations: No limitations Primary Care Provider: TARA QUESADA Nursing and Triage Documentation Reviewed and Agree: Yes Does patient meet sepsis criteria?: No System Inflammatory Response Syndrome: Not Applicable Sepsis Protocol: For patient's 13 years and over: Temp is 96.8 and below OR 101 and greater Pulse >90 BPM Resp >20/minute Acutely Altered Mental Status Are patient's symptoms suggestive of a new infection, such as: -Pneumonia -Skin, Soft Tissue -Endocarditis -UTI -Bone, Joint Infection -Implantable Device -Acute Abdominal Infection -Wound Infection -Meningitis -Blood Stream Catheter Infection -Unknown Trauma/Injury Complaint Exam - Head Injury Complaint/Exam Location of Pain: Reports: Left, Scalp Mechanism of Injury: Reports: Trauma Onset/Duration: 2 hrs Symptoms Are: Still present Initial Severity: Mild Current Severity: Mild Character: Reports: Dull Aggravating: Reports: None Alleviating: Reports: None Associated Signs and Symptoms: Reports: Neck pain Loss of Consciousness: None Immobilization Removed Post Exam: No Head Injury Findings: Present: Normal findings Glascow Coma Scale (see protocol): 15 Focal Weakness: Present: None Focal Sensory Loss: Present: None Gait: Normal Gag Reflex Present: Yes Finger to Nose: Normal Rhomberg Test Positive: No Babinski Sign: Negative Right, Negative Left Heel to Toe Normal: Yes Differential Diagnoses: Trauma Review of Systems - Review Of Systems Constitutional: Reports: No symptoms Eyes: Reports: No symptoms Ears, Nose, Mouth, Throat: Reports: No symptoms Respiratory: Reports: No symptoms Cardiac: Reports: No symptoms GI: Reports: No symptoms : Reports: No symptoms Musculoskeletal: Reports: No symptoms Skin: Reports: No symptoms Neurological: Reports: Headache Endocrine: Reports: No symptoms Hematologic/Lymphatic: Reports: No symptoms All Other Systems: Reviewed and Negative Past Medical History - Past Medical History Previously Healthy: Yes Endocrine: Reports: Dyslipidemia Cardiovascular: Reports: Hypertension, 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, 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) Respiratory: Reports: Other (SINUS CONGESTION- ALLERGIES) Hematological: Reports: None Gastrointestinal: Reports: GERD (BARRETTS), Other (agarwal's espophagus) Genitourinary: Reports: Unknown Neuro/Psych: Reports: Anxiety, Depression, Other (NEUROPATHY) Musculoskeletal: Reports: Arthritis, Other (hip bursitis) Cancer: Reports: Other (PolyPs out of neck of bladder) Last Menstrual Period: none Other Pertinent Past Medical History: hip bursitis - Surgical History General Surgical History: Reports: Tonsillectomy - Family History Family History: Reports: Other (EXCROW WAS HEAVY SMOKER) - Social History Smoking Status: Never smoker Hx Substance Use: No Alcohol Screening: None - Immunizations Tetanus Shot up to Date: Yes Physical Exam - Physical Exam Appearance: Well-appearing, No pain distress, Well-nourished Eyes: DG ENT: Ears normal, Nose normal, Oropharynx normal Neck: Supple Respiratory: Airway patent, Breath sounds clear, Breath sounds equal, Respirations nonlabored Cardiovascular: RRR, Pulses normal, No rub, No murmur GI/: Soft Musculoskeletal: Normal strength, ROM intact, No edema, No calf tenderness Skin: Warm, Dry, Normal color Neurological: Sensation intact, Motor intact, Reflexes intact, Cranial nerves intact, Alert, Oriented Psychiatric: Affect appropriate, Mood appropriate Interpretation - Radiology Interpretation Radiology Interpretation By: Radiologist Radiology Results: Negative Exam Interpreted: CT Scan Critical Care Note - Critical Care Note Total Time (mins): 0 Course - Course Orders, Labs, Meds: Orders Category Date Time Status Acetaminophen [Tylenol] MEDS 10/27/18 10:54 Discontinued 650 mg PO ONCE STA CT CERVICAL SPINE W/O CONTRAST Stat RADS 10/27/18 10:[address] HEAD W/O CONTRAST Stat RADS 10/27/18 10:54 Completed Medications Discontinued Medications Generic Name Dose Route Start Last Admin Trade Name Freq PRN Reason Stop Dose Admin Acetaminophen 650 mg 10/27/18 10:54 10/27/18 11:01 Tylenol PO 10/27/18 10:55 650 mg ONCE STA Administration Vital Signs: Temp Pulse Resp BP Pulse Ox 10/27/18 10:41 98.0 F 65 16 136/76 94 L Departure - Departure Time of Disposition: 11:35 Disposition: HOME SELF-CARE Discharge Problem: Injury of head Instructions: Head Injury (ED) Condition: Good Pt referred to PMD for follow-up: Yes IPMP verified?: No Additional Instructions: f/u with dr quesada Allergies/Adverse Reactions: Allergies iodine Allergy (Verified 07/04/18 17:36) sulfamethoxazole [From Bactrim] Adverse Reaction (Verified 07/04/18 17:36) trimethoprim [From Bactrim] Adverse Reaction (Verified 07/04/18 17:36) Home Medications: Ambulatory Orders Aspirin [Aspirin Chewable] 81 mg PO MOFR 08/25/12 Clonazepam [Klonopin] 0.5 mg PO BID 08/25/12 Diltiazem HCl [Diltiazem 24Hr Cd] 240 mg PO DAILY 08/25/12 Esomeprazole Magnesium [Nexium] 40 mg PO DAILY 08/25/12 Rosuvastatin Calcium [Crestor] 40 mg PO BEDTIME 05/03/14 [place]-3 Fatty Acids/Fish Oil [Fish Oil 1,000 mg Softgel] 1,000 mg PO 1200 Calcium Carbonate/Vitamin D3 [Calcium 500-Vit D3 400 Tablet] 1 each PO DAILY 11/08 Amitriptyline HCl [Elavil] 25 mg PO BEDTIME 11/29/16 Ezetimibe [Zetia] 10 mg PO DAILY 06/29/18 Furosemide [Lasix Tab] 20 mg PO MOWEFR 06/29/18 Lisinopril [Zestril] 20 mg PO BEDTIME 06/29/18 Budesonide/Formoterol Fumarate [Symbicort 80-4.5 Mcg Inhaler] 2 puff IH BID Cephalexin [Keflex] 500 mg PO TID 08/15/18 Pantoprazole Sodium [Protonix] 40 mg PO DAILY 10 Days #10 tablet. 08/17/18 Disposition Discussed With: Patient, Family
== END 2018-10-27 11:45 | disposition home or self-care (01) ==
LOC: ED 10:41
DX: S09.90XA Unspecified injury of head, initial encounter (principal); M54.2 Cervicalgia; W19.XXXA Unspecified fall, initial encounter
CPT/HCPCS: 99283

== ENCOUNTER 2019-08-10 16:34 | Inpatient (IN) ==
[2019-08-10] MEDS ORDERED: SOLU-MEDROL 125 MG IVP STA (16:57)
[2019-08-10 17:19] LABS: HEMATOCRIT 35.3 % (37.0-47.0)
--- NOTE | 2019-08-10 17:41 | DI ---
EXAM: Chest, one-view HISTORY: Cough FINDINGS: Cardiac and mediastinal contours are normal. Atherosclerotic calcification of the aorta. Pulmonary vasculature is normal. Lungs are clear. Bony thorax is unremarkable. IMPRESSION: No acute cardiopulmonary disease
--- NOTE | 2019-08-10 18:00 | ED.PDOC ---
General ED Provider: Dr. EMERY JJ MD Chief Complaint: Chest Pain Stated Complaint: dyspnea Time Seen by Physician: 17:55 Mode of Arrival: Wheelchair Information Source: Patient Primary Care Provider: TARA QUESADA Nursing and Triage Documentation Reviewed and Agree: Yes Does patient meet sepsis criteria?: No System Inflammatory Response Syndrome: Not Applicable Sepsis Protocol: For patient's 13 years and over: Temp is 96.8 and below OR 101 and greater Pulse >90 BPM Resp >20/minute Acutely Altered Mental Status Are patient's symptoms suggestive of a new infection, such as: -Pneumonia -Skin, Soft Tissue -Endocarditis -UTI -Bone, Joint Infection -Implantable Device -Acute Abdominal Infection -Wound Infection -Meningitis -Blood Stream Catheter Infection -Unknown Respiratory Complaint Exam Respiratory Complaint/Exam Onset/Duration: 1week became constant today Symptoms Are: Still present Timing: Constant Initial Severity: Moderate Current Severity: Moderate Character: Reports Productive cough Aggravating: Reports Exertion Alleviating: Reports Bronchodilators Associated Signs and Symptoms: Reports Dyspnea, URI and Nasal congestion Home Oxygen Use: No Recent Stress Test: No Recent Echo/LV Function: No Current Antibiotic Use: No Current Asthma Medication Use: Yes Respiratory Distress: Mild Inadequate Respiratory Effort: No Dysphagia Present: No Stridor Present: No JVD Present: No Accessory Muscle Use: No Retractions: Not Present Diminished Breath Sounds: No Sinus Tenderness: None Grunting Respirations: No Kussmaul Respirations: No Review of Systems Review Of Systems Constitutional: Reports Malaise All Other Systems: Reviewed and Negative [facility] Social History Smoking and tobacco status: Never smoker History of recent travel: No Female Reproductive History Menstrual Hx Hysterectomy: No Hx Tubal Ligation: No Physical Exam Physical Exam Appearance: Reports Well-appearing Ill-appearing: None Pain Distress: None Eyes: Reports DG, EOMI and Conjunctiva clear ENT: Reports Ears normal, Nose normal and Oropharynx normal Neck: Supple Respiratory: Reports Breath sounds equal and Wheezes Cardiovascular: Reports RRR, Pulses normal, No rub and No murmur GI/: Reports Soft, Nontender, No masses and Bowel sounds normal Musculoskeletal: Reports Normal strength, ROM intact, No edema and No calf tenderness Skin: Reports Warm, Dry and Normal color Neurological: Reports Sensation intact, Motor intact, Reflexes intact, Cranial nerves intact, Alert and Oriented Psychiatric: Reports Affect appropriate and Mood appropriate Interpretation Radiology Interpretation Radiology Interpretation By: Radiologist Radiology Results: Negative [employer]cher [employer] Time of Watcher [employer] Interpretation: 17:58 Rate: Normal Rhythm: Sinus Ectopy: None EKG Interpretation Time of EKG #1: 16:56 Rate: Normal Rhythm: Sinus Ectopy: None [place]: NL ST Segment: Normal Critical Care Note Critical Care Note Total Time (mins): 30 Course Course Hematology/Chemistry: 08/10/19 17:15 08/10/19 17:15 Orders, Labs, Meds: Lab Review 08/10/19 08/10/19 08/10/19 16:56 17:15 17:15 WBC 7.29 RBC 3.46 L Hgb 11.6 L Hct 35.3 L MCV 102.0 H MCH 33.5 H MCHC 32.9 RDW Coeff of Christopher 13.3 Plt Count 177 Immature Gran % (Auto) 0.1 Neut % (Auto) 44.0 Lymph % (Auto) 45.0 [place] % (Auto) 9.2 Eos % (Auto) 1.4 Baso % (Auto) 0.3 Neut # (Auto) 3.2 Lymph # (Auto) 3.3 [place] # (Auto) 0.7 Eos # (Auto) 0.1 Baso # (Auto) 0.0 Immature Gran # (Auto) 0.0 Puncture Site R radial O2 Saturation 96.0 ABG pH 7.535 H* ABG pCO2 26.9 L ABG pO2 70.0 L ABG HCO3 22.7 ABG Total CO2 24 ABG Base Excess 0 Ziyad Test + FiO2 % 21.0 Sodium 138.5 Potassium 3.94 Chloride 106.0 Carbon Dioxide 24.1 Anion Gap 12.34 BUN 24.5 H Creatinine 1.41 H Estimated GFR (MDRD) 36.00 BUN/Creatinine Ratio 17.37 Glucose 93.7 Calcium 9.74 Total Bilirubin 0.65 AST 29.9 ALT 17.1 Alkaline Phosphatase 56.9 Total Creatine Kinase 94.8 Troponin I < 0.012 NT-Pro-B Natriuret Pep 272.000 Total Protein 7.13 Albumin 4.12 Globulin 3.01 Albumin/Globulin Ratio 1.36 Urine Color Urine Clarity Urine pH Ur Specific [place] Urine Protein Urine Glucose (UA) Urine Ketones Urine Blood Urine Nitrite Urine Bilirubin Urine Urobilinogen Ur Leukocyte Esterase Urine Microscopic RBC Urine Microscopic WBC Ur Squamous Epith Cells Ur Transition Epith Cell Urine Mucus 08/10/19 18:05 WBC RBC Hgb Hct MCV MCH MCHC RDW Coeff of Christopher Plt Count Immature Gran % (Auto) Neut % (Auto) Lymph % (Auto) [place] % (Auto) Eos % (Auto) Baso % (Auto) Neut # (Auto) Lymph # (Auto) [place] # (Auto) Eos # (Auto) Baso # (Auto) Immature Gran # (Auto) Puncture Site O2 Saturation ABG pH ABG pCO2 ABG pO2 ABG HCO3 ABG Total CO2 ABG Base Excess Ziyad Test FiO2 % Sodium Potassium Chloride Carbon Dioxide Anion Gap BUN Creatinine Estimated GFR (MDRD) BUN/Creatinine Ratio Glucose Calcium Total Bilirubin AST ALT Alkaline Phosphatase Total Creatine Kinase Troponin I NT-Pro-B Natriuret Pep Total Protein Albumin Globulin Albumin/Globulin Ratio Urine Color Yellow Urine Clarity Clear Urine pH 7.0 Ur Specific [place] 1.015 Urine Protein 1+ H Urine Glucose (UA) Negative Urine Ketones Negative Urine Blood Trace-intact H Urine Nitrite Negative Urine Bilirubin Negative Urine Urobilinogen 1.0 H Ur Leukocyte Esterase 2+ H Urine Microscopic RBC 2-5 Urine Microscopic WBC 10-20 Ur Squamous Epith Cells 10-20 Ur Transition Epith Cell 2-5 Urine Mucus Trace Orders Category Date Time Status ABG DRAW REQUEST Stat CARDIO 08/10/19 16:57 Completed EKG-(ED ONLY) Stat CARDIO 08/10/19 16:56 Completed ACTIVITY .BR with BRP CARE 08/10/19 18:29 Ordered INTAKE & OUTPUT Q8HR CARE 08/10/19 18:30 Ordered VITAL SIGNS Q8HR CARE 08/10/19 18:30 Ordered REGULAR DIET DIETARY 08/10/19 Breakfast Ordered ED ELECTRIC METER INSTALLER HELPER APPLIED .ONCE EMERGENCY 08/10/19 16:56 Active ABG Stat LAB 08/10/19 16:56 Completed CBC W/ AUTO DIFF DAILY@0600 LAB 08/11/19 06:00 Ordered CBC W/ AUTO DIFF DAILY@0600 LAB 08/12/19 06:00 Ordered CBC W/ AUTO DIFF Stat LAB 08/10/19 17:15 Completed COMPREHENSIVE METABOLIC PANEL DAILY@0600 LAB 08/11/19 06:00 Ordered COMPREHENSIVE METABOLIC PANEL DAILY@0600 LAB 08/12/19 06:00 Ordered COMPREHENSIVE METABOLIC PANEL Stat LAB 08/10/19 17:15 Completed COVID19, PCR IDPH Stat LAB 08/10/19 Ordered CREATINE KINASE Stat LAB 08/10/19 17:15 Completed NT-PROBNP Stat LAB 08/10/19 17:15 Completed TROPONIN I Stat LAB 08/10/19 17:15 Completed UA [URINALYSIS C & S IF INDICATED] Stat LAB 08/10/19 18:05 Completed URINE CULTURE Stat LAB 08/10/19 18:05 Received 750 mg IV Daily Kristine MEDS 08/11/19 09:00 Ordered Levofloxacin/D5w [Levaquin 750 mg/150 ml D5w] 750 mg in 150 ml IV DAILY 750 mg IV Once Stat MEDS 08/10/19 18:31 Ordered Levofloxacin/D5w [Levaquin 750 mg/150 ml D5w] 750 mg in 150 ml IV ONCE Albuterol Inhaler(with Spacer) [Ventolin Hfa (Per Puff- MEDS 08/10/19 18:11 Discontinued with Spacer)] 2 puff IH ONCE STA Methylprednisolone Sod Succ/Pf [Solu-Medrol 125 mg] MEDS 08/10/19 16:57 Discontinued 125 mg IVP ONCE STA Methylprednisolone Sod Succ/Pf [Solu-Medrol 125 mg] MEDS 08/10/19 21:00 Ordered 60 mg IVP Q8HR RESUSCITATION STATUS Routine OTHERS 08/10/19 18:29 Ordered CHEST, 1V AP ONLY Stat RADS 08/10/19 16:56 Completed Medications Discontinued Medications Generic Name Dose Route Start Last Admin Trade Name Freq PRN Reason Stop Dose Admin Albuterol Sulfate 2 puff 08/10/19 18:11 08/10/19 18:17 Ventolin Hfa (Per Puff-With Spacer) IH 08/10/19 18:12 2 puff ONCE STA Administration Methylprednisolone Sodium Succinate 125 mg 08/10/19 16:57 08/10/19 17:18 Solu-Medrol 125 Mg IVP 08/10/19 16:58 125 mg ONCE STA Administration Vital Signs: Temp Pulse Resp BP Pulse Ox 08/10/19 16:35 99.5 F 71 20 181/82 H 95 Discharge Plan Discharge Patient Disposition: ADMITTED INPATIENT Discharge Problem: Acute exacerbation of chronic obstructive pulmonary disease, Acute UTI Prescriptions: No Action diltiazem HCl 240 MG capsule,extended release 24hr 240 mg PO DAILY RF: 0 clonazepam 0.5 MG tablet 1 mg PO DAILY RF: 0 aspirin 81 MG tablet,chewable 81 mg PO MOFR RF: 0 rosuvastatin [Crestor] 40 MG tablet 40 mg PO BEDTIME RF: 0 omega-3 fatty acids-fish oil [Fish Oil] 1 EACH capsule 1,000 mg PO 1200 RF: 0 calcium carbonate-vitamin D3 [Calcium 500 + D] 1 EACH tablet 1 ea PO DAILY RF: 0 amitriptyline 25 MG tablet 25 mg PO BEDTIME RF: 0 guaifenesin [Mucinex] 600 mg Tablet Extended Release 12hr 600 mg PO BID PRN (Reason: Allergy Symptoms) RF: 0 albuterol sulfate 1.25 mg/3 mL Solution For Nebulization 1.25 mg INHALATION Q4-6H RF: 0 furosemide 20 MG tablet 20 mg PO DAILY RF: 0 lisinopril [Zestril] 20 MG tablet 20 mg PO BID RF: 0 ezetimibe [Zetia] 10 MG tablet 10 mg PO DAILY RF: 0 fexofenadine 180 mg Tablet 180 mg PO DAILY PRN (Reason: Allergy Symptoms) RF: 0 esomeprazole magnesium [Nexium] 40 mg Capsule,Delayed Release(Dr/Ec) 40 mg PO BID RF: 0 ED Provider: EMERY JJ Condition: Stable
[2019-08-10] MEDS ORDERED: VENTOLIN HFA (PER PUFF-WITH SPACER) IH STA (18:11)
[2019-08-10] MEDS ORDERED: LEVAQUIN 750 MG/150 ML D5W 750 MG/150 ML BAG IV STA (18:31)
[2019-08-10] MEDS ORDERED: ALBUTEROL 0.042% NEB NEB PRN (21:16)
[2019-08-10 21:46] VITALS: BMI 26.6
[2019-08-10] MEDS: KLONOPIN PO SCH (22:29)
[2019-08-10] MEDS: PROTONIX PO SCH (22:29)
[2019-08-10] MEDS: CRESTOR PO SCH (22:29)
[2019-08-10] MEDS: ELAVIL PO SCH (22:29)
[2019-08-10] MEDS: SOLU-MEDROL 125 MG IVP SCH (22:30)
[2019-08-11] MEDS: TYLENOL PO PRN ×2 (03:51→14:00)
[2019-08-11 05:05] LABS: HEMATOCRIT 36.8 % (37.0-47.0)
[2019-08-11] MEDS: SOLU-MEDROL 125 MG IVP SCH ×3 (07:17→20:16)
[2019-08-11] MEDS: ZESTRIL PO SCH (08:45)
[2019-08-11] MEDS: COMBIVENT RESPIMAT INHALER IH SCH ×4 (08:45→20:19)
[2019-08-11] MEDS: CLARITIN PO SCH (08:46)
[2019-08-11] MEDS: LASIX TAB PO SCH (08:46)
[2019-08-11] MEDS: KLONOPIN PO SCH ×2 (08:46→20:15)
[2019-08-11] MEDS: CARDIZEM CD PO SCH (08:46)
[2019-08-11] MEDS: ZETIA PO SCH (08:46)
[2019-08-11] MEDS: PROTONIX PO SCH ×2 (08:46→20:15)
[2019-08-11] MEDS ORDERED: ASPIRIN CHEWABLE PO SCH ×2 (09:00→21:16)
--- NOTE | 2019-08-11 13:27 | PN ---
DATE OF SERVICE: 08/10/19 SUBJECTIVE: The patient was hospitalized through the Emergency Room. She came in with shortness of breath, cough, congestion and low grade fever 99.5. The patient had on chest x-ray no pneumonia. She still has chronic lung disease. Arterial blood gases showed metabolic alkalosis from hyperventilation. The patient is going to be hospitalized and will be given IV antibiotics, steroids. As she is running a low grade fever, she will be checked for coronavirus. TIME SPENT: More than 30 minutes. Plan and coordination of the patient's care discussed in the presence of nurse. SARAH
[2019-08-11] MEDS: CALCIUM 500 + VIT D 200 MG TABLET PO SCH (14:00)
[2019-08-11] MEDS: OMEGA-3 FISH OIL PO SCH (14:01)
[2019-08-11] MEDS: CRESTOR PO SCH (20:15)
[2019-08-11] MEDS: ELAVIL PO SCH (20:15)
[2019-08-12 04:17] LABS: HEMATOCRIT 34.7 % (37.0-47.0)
[2019-08-12] MEDS: SOLU-MEDROL 125 MG IVP SCH ×3 (05:28→20:32)
--- NOTE | 2019-08-12 07:40 | HP ---
DATE OF SERVICE: 08/10/19 HISTORY OF PRESENT ILLNESS: 84-year-old white female who was brought to ER with complaint of chest pain, shortness of breath, cough, congestion and fever. She reports this has been ongoing for approximately one week. She also reports that her cough is productive. She has a history of chronic lung disease. ABGs done in the ER were positive for metabolic alkalosis with pH of 7.535, BUN 24.5, creatinine 1.41. She also had an abnormal urinalysis. Chest x-ray showed no acute cardiopulmonary disease. Due to the patient's symptoms and low grade fever, she will be swabbed for Covid-19. She will be admitted for treatment of acute exacerbation of chronic obstructive pulmonary disease and acute UTI for IV antibiotics. She will be admitted as a PUI patient. PAST MEDICAL HISTORY: History of acute sinusitis TIA Ataxia Hypertension GERD Generalized anxiety disorder Carotid stenosis Chronic kidney disease, Stage 3 Osteoarthritis of the hip Osteoporosis History of urinary tract infection History of falls History of lung nodule for which she refuses pulmonary referral Varicose veins Chronic bronchitis Asthma PAST SURGICAL HISTORY: Heart cath in 1991 and in 2000, both normal Bladder polyps Tonsillectomy and adenoidectomy REVIEW OF SYSTEMS: CONSTITUTIONAL: Fever. No night sweats. No fatigue, malaise, lethargy. No chills. HEENT: Eyes: No visual changes. No eye pain. No eye discharge. ENT: No runny nose. No epistaxis. No sinus pain. No sore throat. No odynophagia. No ear pain. No congestion. RESPIRATORY: Cough and congestion. No hemoptysis. Shortness of breath. CARDIOVASCULAR: Chest pain. No angina symptoms. No CHF symptoms. No palpitations. No PND. No orthopnea. GASTROINTESTINAL: No abdominal pain. No nausea or vomiting. No diarrhea or constipation. No hematemesis. No hematochezia. GENITOURINARY: No urgency. No frequency. No dysuria. No hematuria. No obstructive symptoms. No discharge. No pain. No significant abnormal bleeding. MUSCULOSKELETAL: No musculoskeletal pain. No joint swelling. No arthritis. NEUROLOGICAL: No headache. No neck pain. No syncope. No seizures. No dizziness. PSYCHIATRIC: Not anxious. No depression. No suicidal thoughts. No homicidal thoughts. SKIN: No rash. No lesions. No wounds. ENDOCRINE: No unexplained weight loss. No weight gain. HEMATOLOGIC/LYMPHATIC: No anemia. No purpura. No petechiae. No prolonged or excessive bleeding. No palpable lymph nodes. PERSONAL/FAMILY/SOCIAL HISTORY: She is . She lives alone. She does not smoke or use any alcohol. MEDICATIONS: (HOME) Clonazepam 0.5 mg p.o. b.i.d. Diltiazem 240 mg p.o. daily Aspirin 81 mg p.o. MoFri Rosuvastatin 40 mg p.o. bedtime [place]-3 Fatty Acids-Fish Oil 1,000 mg p.o. 1200 Calcium Carbonate-Vitamin D3 one each p.o. 1200 Amitriptyline 25 mg p.o. bedtime Furosemide 20 mg p.o. q.MWF Lisinopril 20 mg p.o. daily Ezetimibe 10 mg p.o. daily Albuterol 1.25 mg inhalation q.4-6hr p.r.n. Pantoprazole 40 mg p.o. b.i.d. Acetaminophen 1,000 mg p.o. q.6hr p.r.n. Fexofenadine 180 mg p.o. daily p.r.n. ALLERGIES: IODINE, SULFAMETHOXAZOLE, TRIMETHOPRIM PHYSICAL EXAMINATION: VITAL SIGNS: Temperature 99.5, pulse 71, respirations 20, blood pressure 181/82, pulse ox 95%. HEENT: Head normocephalic, atraumatic. Eyes: Extraocular muscles are intact. Pupils are equal, round and reactive to light and accommodation. Ears: No lesions. Nose appeared normal. Throat: No exudate or erythema. NECK: Supple. No JVD, no carotid bruit. No lymphadenopathy or thyromegaly. LUNGS: Diminished breath sounds with expiratory wheezing. Percussion note normal. Chest symmetrical. HEART: S1, S2, no S3. No murmur. No cyanosis or clubbing. No ascites. Pulses: Dorsalis pedis and posterior tibial pulses +1 to +2 bilaterally. ABDOMEN: Soft. Nontender. Bowel sounds active. No CVA tenderness. No mass felt. EXTREMITIES: No edema. Full range of motion of all extremities, equal. NEUROLOGIC: No focal deficit. Cranial nerves II through XII are grossly intact. No headache, no double vision or headache. SKIN: Not dry. Intact. Turgor - normal. LYMPHATIC: No palpable lymph nodes/no lymphedema. MUSCULOSKELETAL: Normal joints with no swelling. Muscle tone is normal. LABS: ABG on room air: 02 saturation of 96%, pH 7.535, pc02 26.9, p02 70, HC03 22.7, white count 7.29, hemoglobin 11.6, hematocrit 35.3, platelet count 177. Sodium 138.5, potassium 3.94, BUN 24.5, creatinine 1.41, AST 29.9, ALT 17.1. Urine showed urine blood trace, urine leukocytes 2+. Chest x-ray showed no acute cardiopulmonary disease. ASSESSMENT: 1. Person under investigation, Covid test pending. 2. Metabolic alkalosis. 3. Chronic obstructive pulmonary disease exacerbation. 4. Urinary tract infection. 5. Hypertension. 6. Dehydration. 7. Chronic kidney disease, Stage 3. 8. Osteoarthritis. PLAN: 1. Admit. 2. Routine telemetry orders. 3. Covid-19 test pending. 4. CBC, CMP daily. 5. Urine culture and sensitivity pending. 6. Continue home medications. 7. 02 at 1 to 2L nasal cannula as needed. 8. Regular diet. 9. Levaquin 750 mg IV every 48 hours. 10. Solu-Medrol 60 mg IV q.8hr. 11. Albuterol with spacer q.6hr scheduled to replace Duonebs. 12. Regular diet. 13. Encourage good oral fluid and nutritional intake. 14. Fall precautions. The patient was seen and examined with Dr. Arroyo, plan was discussed. TIME SPENT: More than 70 minutes. [facility]
--- NOTE | 2019-08-12 07:46 | PN ---
DATE OF SERVICE: 08/11/19 SUBJECTIVE: 84-year-old white female alert, resting comfortably in bed. She continues to complain of mild shortness of breath, cough and congestion. She reports her appetite is fair. She is afebrile this morning. Her Covid test is still pending. We will continue IV Levaquin and IV Solu-Medrol. REVIEW OF SYSTEMS: CONSTITUTIONAL: No night sweats. No fatigue, malaise, lethargy. No fever or chills. HEENT: Eyes: No visual changes. No eye pain. No eye discharge. ENT: No runny nose. No epistaxis. No sinus pain. No sore throat. No odynophagia. No congestion. RESPIRATORY: Cough and congestion. No hemoptysis. Shortness of breath. CARDIOVASCULAR: No angina symptoms. No CHF symptoms. No atypical chest pain for CAD. No palpitations. No PND. No orthopnea. GASTROINTESTINAL: No abdominal pain. No nausea or vomiting. No diarrhea or constipation. No hematemesis. No hematochezia. GENITOURINARY: No urgency. No frequency. No dysuria. No hematuria. No obstructive symptoms. No discharge. No pain. No significant abnormal bleeding. MUSCULOSKELETAL: No musculoskeletal pain; no joint swelling. NEUROLOGICAL: No headache. No neck pain. No syncope. No seizures. No dizziness. PSYCHIATRIC: Not anxious. No depression. No suicidal thoughts. No homicidal thoughts. SKIN: No rash. No lesions. No wounds. ENDOCRINE: No unexplained weight loss. No weight gain. HEMATOLOGIC/LYMPHATIC: No anemia. No purpura. No petechiae. No prolonged or excessive bleeding. No palpable lymph nodes. PHYSICAL EXAMINATION: HEENT: Head normocephalic, atraumatic. Eyes: Extraocular muscles are intact. Pupils are equal, round and reactive to light and accommodation. Ears: No lesions. Nose appeared normal. Throat: No exudate or erythema. NECK: Supple. No JVD, no carotid bruit. No lymphadenopathy or thyromegaly. LUNGS: Diminished breath sounds with expiratory wheezing. Percussion note normal. Chest symmetrical. HEART: S1, S2, no S3. No murmurs. No cyanosis or clubbing. No ascites. Pulses: Dorsalis pedis and posterior tibial pulses +1 to +2 bilaterally. ABDOMEN: Soft. Nontender. Bowel sounds active. No CVA tenderness. No mass felt. EXTREMITIES: No edema. Full range of motion of all extremities, equal. NEUROLOGIC: No focal deficit. Cranial nerves II through XII are grossly intact. No headache, no double vision or headache. SKIN: Not dry. Intact. Turgor - normal. LYMPHATIC: No palpable lymph nodes/no lymphedema. MUSCULOSKELETAL: Normal joints with no swelling. Muscle tone is normal. ASSESSMENT: 1. PUI-Covid pending. 2. Metabolic alkalosis. 3. COPD exacerbation. 4. UTI. 5. Hypertension. 6. Chronic kidney disease, Stage 3. 7. Dehydration. 8. Osteoarthritis. PLAN: 1. Continue IV Levaquin. 2. Continue IV Solu-Medrol, scheduled. 3. Albuterol with spacers q.6 to replace Duonebs. 4. Encourage good oral fluid and nutritional intake. 5. CBC and CMP in the morning. 6. T4. The patient was seen and examined with Dr. Arroyo, plan was discussed. TIME SPENT: More than 30 minutes. Plan and coordination of the patient's care discussed in the presence of nurse. SARAH
[2019-08-12] MEDS: CARDIZEM CD PO SCH (08:53)
[2019-08-12] MEDS: KLONOPIN PO SCH ×2 (08:53→20:32)
[2019-08-12] MEDS: COMBIVENT RESPIMAT INHALER IH SCH ×4 (08:53→20:34)
[2019-08-12] MEDS: PROTONIX PO SCH ×2 (08:53→16:56)
[2019-08-12] MEDS: ZESTRIL PO SCH (08:54)
[2019-08-12] MEDS: ASPIRIN CHEWABLE PO SCH (08:54)
[2019-08-12] MEDS: ZETIA PO SCH (08:54)
[2019-08-12] MEDS: CLARITIN PO SCH (08:55)
--- NOTE | 2019-08-12 08:55 | PCM.PROG ---
Attending Provider: ATTENDING PROVIDER: Dr. TARA QUESADA This patient is seen with Naheed Culver, Nurse Practitioner. DATE OF SERVICE: 08/12/19 SUBJECTIVE: This 84 year old /WHITE F was hospitalized 08/10/19. The patient is alert and resting in the bed. She reports that she is feeling some better. She is less short of breath. Her appetite is good. She will be continued on IV Levaquin. Her COVID test was negative. REVIEW OF SYSTEMS: CONSTITUTIONAL: No night sweats. No fatigue, malaise, lethargy. No fever or chills. Weakness. HEENT: Eyes: No visual changes. No eye pain. No eye discharge. ENT: No runny nose. No epistaxis. No sinus pain. No odynophagia. No congestion. RESPIRATORY: No cough, no congestion. No hemoptysis. No shortness of breath. CARDIOVASCULAR: No angina symptoms. No CHF symptoms. No atypical chest pain for CAD. No palpitations. No orthopnea.. GASTROINTESTINAL: No abdominal pain. No nausea or vomiting. No diarrhea or constipation. No hematemesis. No hematochezia. GENITOURINARY: No urgency. No frequency. No dysuria. No hematuria. No obstructiv e symptoms. No discharge. No pain. No significant abnormal bleeding. MUSCULOSKELETAL: No musculoskeletal pain; no joint swelling. NEUROLOGICAL: Awake, alert, oriented to time, place and person. No headache. No neck pain. No syncope. No seizures. No dizziness. PSYCHIATRIC: Not anxious. No depression. No suicidal thoughts. No homicidal thoughts. SKIN: No rash. No lesions. No wounds. ENDOCRINE: No unexplained weight loss. No weight gain. HEMATOLOGIC/LYMPHATIC: No anemia. No purpura. No petechiae. No prolonged or excessive bleeding. No palpable lymph nodes. PHYSICAL EXAMINATION: GENERAL: The patient is awake, alert and oriented, lying in bed in no distress. VITAL SIGNS: Temperature 97.6 F, Pulse 60, Respiratory Rate 16, BP 156/67, Pulse Ox 95% HEENT: Head normocephalic, atraumatic. Eyes: Extraocular muscles are intact. Pupils are equal, round and reactive to light and accommodation. Ears: No lesions. Nose appeared normal. Throat: No exudate or erythema. NECK: Supple. No JVD, no carotid bruit. No lymphadenopathy or thyromegaly. LUNGS: Diminished breath sounds. Clear to auscultation. Percussion note normal. Chest symmetrical. HEART: S1, S2, no S3. No murmurs. No cyanosis or clubbing. No ascites. Pulses: Dorsalis pedis and posterior tibial pulses +1 to +2 both sides. ABDOMEN: Soft. Non-tender. Bowel sounds active. No CVA tenderness. No mass felt. EXTREMITIES: No edema. Full range of motion of all extremities, equal. NEUROLOGIC: No focal deficit. Cranial nerves II through XII are grossly intact. No headache, no double vision or headache. SKIN: Not dry. Intact. Turgor-normal. LYMPHATIC: No palpable lymph nodes/no lymphedema. MUSCULOSKELETAL: Normal joints with no swelling. Muscle tone is normal. LAB REVIEW: 08/12/19 04:10 08/12/19 04:10 08/12/19 04:10: Sodium 138.6, Potassium 4.11, Chloride 106.7, Carbon Dioxide 23.1, Anion Gap 12.91, BUN 37.9 H, Creatinine 1.29, Estimated GFR (MDRD) 39.00, BUN/Creatinine Ratio 29.37, Glucose 172.3 H, Calcium 9.13, Total Bilirubin 0.40, AST 28.3, ALT 17.4, Alkaline Phosphatase 38.8 L, Total Protein 6.48, Albumin 3.69, Globulin 2.79, Albumin/Globulin Ratio 1.32 08/12/19 04:10: WBC 10.64 H D, RBC 3.39 L, Hgb 11.4 L, Hct 34.7 L, MCV 102.4 H, MCH 33.6 H, MCHC 32.9, RDW Coeff of Christopher 13.3, Plt Count 177, Immature Gran % (Auto) 0.5, Neut % (Auto) 85.8 H, Lymph % (Auto) 11.6, [place] % (Auto) 2.0, Eos % (Auto) 0.0, Baso % (Auto) 0.1, Neut # (Auto) 9.1 H, Lymph # (Auto) 1.2, [place] # (Auto) 0.2 L, Eos # (Auto) 0.0, Baso # (Auto) 0.0, Immature Gran # (Auto) 0.1 08/11/19 04:41: Free T4 0.89 ASSESSMENT: Please see below. 1. Metabolic Alkalosis, improved 2. COPD exacerbation 3. UTI 4. Hypertension 5. Dehydration, improving 6. Chronic kidney disease, Stage 3 7. Osteoarthritis. PLAN: 1. Continue IV Levaquin 3. Encourage oral and nutritional intake 3. Encourage the patient to be up and about 4. Fall precautions 5. Urine culture still pending. Plan and coordination of the patient's care discussed in the presence of Director [employer] and nurse. SCRIBED BY: KAMRAN FAUSTIN Promotional Demonstrator scribed while in presence of service performed by Dr. Quesada/Naheed Culver APRN on 08/12/19 ([id number])
[2019-08-12] MEDS: OMEGA-3 FISH OIL PO SCH (12:06)
[2019-08-12] MEDS: CALCIUM 500 + VIT D 200 MG TABLET PO SCH (12:06)
[2019-08-12] MEDS: ELAVIL PO SCH (20:33)
[2019-08-12] MEDS: CRESTOR PO SCH (20:33)
[2019-08-12] MEDS ORDERED: LEVAQUIN 750 MG/150 ML D5W 750 MG/150 ML BAG IV SCH (21:00)
[2019-08-13 04:42] LABS: HEMATOCRIT 33.1 % (37.0-47.0)
[2019-08-13] MEDS: SOLU-MEDROL 125 MG IVP SCH (05:56)
[2019-08-13] MEDS: LASIX TAB PO SCH (05:57)
[2019-08-13] MEDS: PROTONIX PO SCH ×2 (05:57→17:02)
[2019-08-13] MEDS: COMBIVENT RESPIMAT INHALER IH SCH ×4 (08:53→20:52)
[2019-08-13] MEDS: KLONOPIN PO SCH ×2 (08:54→20:51)
[2019-08-13] MEDS: CLARITIN PO SCH (08:56)
[2019-08-13] MEDS: ZESTRIL PO SCH (08:57)
[2019-08-13] MEDS: ASPIRIN CHEWABLE PO SCH (08:57)
[2019-08-13] MEDS: CARDIZEM CD PO SCH (08:57)
[2019-08-13] MEDS: ZETIA PO SCH (08:57)
[2019-08-13] MEDS: OMEGA-3 FISH OIL PO SCH (11:51)
[2019-08-13] MEDS: CALCIUM 500 + VIT D 200 MG TABLET PO SCH (11:51)
[2019-08-13] MEDS: TYLENOL PO PRN (16:12)
[2019-08-13] MEDS: ELAVIL PO SCH (20:51)
[2019-08-13] MEDS: CRESTOR PO SCH (20:51)
[2019-08-14 05:28] LABS: HEMATOCRIT 34.4 % (37.0-47.0)
[2019-08-14] MEDS: PROTONIX PO SCH (05:37)
[2019-08-14] MEDS ORDERED: PREDNISONE PO SCH (08:30)
[2019-08-14] MEDS: ZESTRIL PO SCH (08:47)
[2019-08-14] MEDS: ZETIA PO SCH (08:47)
[2019-08-14] MEDS: KLONOPIN PO SCH (08:47)
[2019-08-14] MEDS: CARDIZEM CD PO SCH (08:47)
[2019-08-14] MEDS: CLARITIN PO SCH (08:47)
[2019-08-14] MEDS: ASPIRIN CHEWABLE PO SCH (08:47)
[2019-08-14] MEDS: COMBIVENT RESPIMAT INHALER IH SCH ×2 (08:48→12:34)
--- NOTE | 2019-08-14 09:31 | PN ---
DATE OF SERVICE: 08/13/19 SUBJECTIVE: 84-year-old white female hospitalized with UTI, COPD exacerbation. The patient's condition has improved. The patient is afebrile, feeling better. Cough and congestion is a lot better. She is feeling better. Aches and pains are practically gone. Covid negative. REVIEW OF SYSTEMS: CONSTITUTIONAL: No night sweats. No fatigue, malaise, lethargy. No fever or chills. HEENT: Eyes: No visual changes. No eye pain. No eye discharge. ENT: No runny nose. No epistaxis. No sinus pain. No sore throat. No odynophagia. No congestion. RESPIRATORY: No cough, no congestion. No hemoptysis. No shortness of breath. CARDIOVASCULAR: No angina symptoms. No CHF symptoms. No atypical chest pain for CAD. No palpitations. No PND. No orthopnea. GASTROINTESTINAL: Appetite has improved. No abdominal pain. No nausea or vomiting. No diarrhea or constipation. No hematemesis. No hematochezia. GENITOURINARY: No burning on urination. MUSCULOSKELETAL: No musculoskeletal pain; no joint swelling. NEUROLOGICAL: No headache. No neck pain. No syncope. No seizures. No dizziness. PSYCHIATRIC: Not anxious. No depression. No suicidal thoughts. No homicidal thoughts. SKIN: No rash. No lesions. No wounds. ENDOCRINE: No unexplained weight loss. No weight gain. HEMATOLOGIC/LYMPHATIC: No anemia. No purpura. No petechiae. No prolonged or excessive bleeding. No palpable lymph nodes. PHYSICAL EXAMINATION: VITAL SIGNS: Temperature 97.5, pulse 65, respiratory rate 16, BP 135/65, pulse ox 95%. HEENT: Head normocephalic, atraumatic. Eyes: Extraocular muscles are intact. Pupils are equal, round and reactive to light and accommodation. Ears: No lesions. Nose appeared normal. Throat: No exudate or erythema. NECK: Supple. No JVD, no carotid bruit. No lymphadenopathy or thyromegaly. LUNGS: Decreased breath sounds but clear to auscultation. Percussion note normal. Chest symmetrical. HEART: S1, S2, no S3. No murmurs. No cyanosis or clubbing. No ascites. Pulses: Dorsalis pedis and posterior tibial pulses +1 to +2 bilaterally. ABDOMEN: Soft. Nontender. Bowel sounds active. No CVA tenderness. No mass felt. EXTREMITIES: No edema. Full range of motion of all extremities, equal. NEUROLOGIC: No focal deficit. Cranial nerves II through XII are grossly intact. No headache, no double vision or headache. SKIN: Not dry. Intact. Turgor - normal. LYMPHATIC: No palpable lymph nodes/no lymphedema. MUSCULOSKELETAL: Normal joints with no swelling. Muscle tone is normal. LABS: Hemoglobin 11, hematocrit 33, WBC 9,000, normal differential. Creatinine 1.2, BUN 43, potassium 3.9. T4, TSH normal. Pro-BNP 272. ASSESSMENT: 1. Cardiovascular and respiratory status stable. 2. UTI seems to be resolving. PLAN: 1. Continue antibiotics, Levaquin every other day. 2. Kidney functions deteriorated to the point where the BUN is rising to some extent. The patient is strongly advised to drink fluids. GFR has stayed the same. CONDITION: Stable. TIME SPENT: More than 30 minutes. Plan and coordination of the patient's care discussed in the presence of nurse. SARAH
--- NOTE | 2019-08-14 09:34 | PCM.PROG ---
Attending Provider: ATTENDING PROVIDER: Dr. TARA QUESADA This patient is seen with Naheed Culver, Nurse Practitioner. DATE OF SERVICE: 08/14/19 SUBJECTIVE: This 84 year old /WHITE F was hospitalized 08/10/19. The patient is resting comfortably in bed. She has been up and about in the room. She is w anting to take a shower. She has had a good appetite. She is hoping to be discharged home today. REVIEW OF SYSTEMS: CONSTITUTIONAL: No night sweats. No fatigue, malaise, lethargy. No fever or chills. HEENT: Eyes: No visual changes. No eye pain. No eye discharge. ENT: No runny nose. No epistaxis. No sinus pain. No odynophagia. No congestion. RESPIRATORY: No cough, no congestion. No hemoptysis. No shortness of breath. CARDIOVASCULAR: No angina symptoms. No CHF symptoms. No atypical chest pain for CAD. No palpitations. No orthopnea.. GASTROINTESTINAL: No abdominal pain. No nausea or vomiting. No diarrhea or constipation. No hematemesis. No hematochezia. GENITOURINARY: No urgency. No frequency. No dysuria. No hematuria. No obstructive symptoms. No discharge. No pain. No significant abnormal bleeding. MUSCULOSKELETAL: No musculoskeletal pain; no joint swelling. NEUROLOGICAL: Awake, alert, oriented to time, place and person. No headache. No neck pain. No syncope. No seizures. No dizziness. PSYCHIATRIC: Not anxious. No depression. No suicidal thoughts. No homicidal thoughts. SKIN: No rash. No lesions. No wounds. ENDOCRINE: No unexplained weight loss. No weight gain. HEMATOLOGIC/LYMPHATIC: No anemia. No purpura. No petechiae. No prolonged or excessive bleeding. No palpable lymph nodes. PHYSICAL EXAMINATION: GENERAL: The patient is awake, alert and oriented, lying/sitting in bed in no distress. VITAL SIGNS: Temperature 97.9 F, Pulse 61, Respiratory Rate 18, BP 148/75, Pulse Ox 95% HEENT: Head normocephalic, atraumatic. Eyes: Extraocular muscles are intact. Pupils are equal, round and reactive to light and accommodation. Ears: No lesions. Nose appeared normal. Throat: No exudate or erythema. NECK: Supple. No JVD, no carotid bruit. No lymphadenopathy or thyromegaly. LUNGS: Clear to auscultation. Percussion note normal. Chest symmetrical. HEART: S1, S2, no S3. No murmurs. No cyanosis or clubbing. No ascites. Pulses: Dorsalis pedis and posterior tibial pulses +1 to +2 both sides. ABDOMEN: Soft. Non-tender. Bowel sounds active. No CVA tenderness. No mass felt. EXTREMITIES: No edema. Full range of motion of all extremities, equal. NEUROLOGIC: No focal deficit. Cranial nerves II through XII are grossly intact. No headache, no double vision or headache. SKIN: Not dry. Intact. Turgor-normal. LYMPHATIC: No palpable lymph nodes/no lymphedema. MUSCULOSKELETAL: Normal joints with no swelling. Muscle tone is normal. LAB REVIEW: 08/14/19 04:55 08/14/19 04:55 08/14/19 04:55: Sodium 138.6, Potassium 3.89, Chloride 106.2, Carbon Dioxide 25.4, Anion Gap 10.89, BUN 45.4 H, Creatinine 1.43 H, Estimated GFR (MDRD) 35.00, BUN/Creatinine Ratio 31.74, Glucose 135.2 H, Calcium 8.67, Total Bilirubin 0.46, AST 29.3, ALT 24.2, Alkaline Phosphatase 38.8 L, Total Protein 6.43, Albumin 3.60, Globulin 2.83, Albumin/Globulin Ratio 1.27 08/14/19 04:55: WBC 8.14, RBC 3.40 L, Hgb 11.4 L, Hct 34.4 L, MCV 101.2 H, MCH 33.5 H, MCHC 33.1, RDW Coeff of Christopher 13.7, Plt Count 200, Immature Gran % (Auto) 1.2, Neut % (Auto) 79.0 H, Lymph % (Auto) 14.4, [place] % (Auto) 5.4, Eos % (Auto) 0.0, Baso % (Auto) 0.0, Neut # (Auto) 6.4, Lymph # (Auto) 1.2, [place] # (Auto) 0.4, Eos # (Auto) 0.0, Baso # (Auto) 0.0, Immature Gran # (Auto) 0.1 ASSESSMENT: Please see below. 1. Metabolic alkalosis, improved 2. COPD exacerbation 3. UTI 4. Hypertension 5. Dehydration, improving 6. Chronic kidney disease, Stage 3 7. Osteoarthritis. PLAN: 1. Anticipate discharge today. 2. Will start oral Levaquin. 3. Encourage good fluid intake. 4. Encourage to be up and about. Plan and coordination of the patient's care discussed in the presence of Oncology Coordinator and nurse. CONDITION: Stable SCRIBED BY: KT VEGA Drying Frame Operator scribed while in presence of service performed by Dr. Quesada/Naheed Culver APRN on 08/14/19 ([id number])
--- NOTE | 2019-08-14 10:26 | CM.DICTOOL ---
ADMISSION: 08/10/19 20:02 DISCHARGE: July DATE OF SERVICE: 08/14/19 FINAL DIAGNOSIS COPD EXACERBATION UTI HYPERTENSION DEHYDRATION,IMPROVING CHRONIC KIDNEY DISEASE, STAGE 3 OSTEOARTHRITIS HX: CHEST PAIN LIKELY ESOPHAGEAL SPASM FROM NON-STEROIDAL ANTI-INFLAMMATORY GERD CAROTID STENOSIS TIA DYSLIPIDEMIA. HYPERTENSION. CHRONIC LUNG DISEASE CHRONIC KIDNEY DISEASE, STAGE 3 NEUROPATHY ACUTE SINUSITIS [place] GENERAL ANXIETY DISORDER OA HIP OSTEOPOROSIS LVEF 56% - 08/20/18 ECHO LAST VITALS Temp Pulse Resp BP Pulse Ox 97.9 F 61 18 148/75 H 95 08/14/19 05:14 08/14/19 05:14 08/14/19 05:14 08/14/19 05:14 08/14/19 05:14 TAKE THESE MEDICATIONS AT HOME Acetaminophen (Tylenol) 1,000 mg PO Q6HR PRN PRN Reason: Pain or Fever Last Admin: 08/13/19 16:12 Dose: 1,000 mg Documented by: Amitriptyline HCl (Elavil) 25 mg PO BEDTIME [facility] Last Admin: 08/13/19 20:51 Dose: 25 mg Documented by: Aspirin (Aspirin Chewable) 81 mg PO DAILYWM [facility] Last Admin: 08/14/19 08:47 Dose: 81 mg Documented by: Calcium/Vitamin D (Calcium 500 + Vit D 200 Mg Tablet) 1 each PO 1200 [facility] Last Admin: 08/13/19 11:51 Dose: 1 each Documented by: Clonazepam (Klonopin) 0.5 mg PO BID [facility] Last Admin: 08/14/19 08:47 Dose: 0.5 mg Documented by: Diltiazem HCl (Cardizem Cd) 240 mg PO DAILY [facility] Last Admin: 08/14/19 08:47 Dose: 240 mg Documented by: Ezetimibe (Zetia) 10 mg PO DAILY [facility] Last Admin: 08/14/19 08:47 Dose: 10 mg Documented by: Fish Oil ([place]-3 Fish Oil) 1,000 mg PO 1200 [facility] Last Admin: 08/13/19 11:51 Dose: 1,000 mg Documented by: Furosemide (Lasix Tab) 20 mg PO MoWeFr@0630 [facility] Last Admin: 08/13/19 05:57 Dose: 20 mg Documented by: Lisinopril (Zestril) 20 mg PO DAILY [facility] Last Admin: 08/14/19 08:47 Dose: 20 mg Documented by: Pantoprazole Sodium (Protonix) 40 mg PO BIDAC [facility] Last Admin: 08/14/19 05:37 Dose: 40 mg Documented by: Rosuvastatin Calcium (Crestor) 40 mg PO BEDTIME [facility] Last Admin: 08/13/19 20:51 Dose: 40 mg Documented by: ALBUTEROL SULFATE NEBULIZERS ONE VIAL INH EVERY 4-6 HOURS PRN -- ( HOME MED) FEXOFENADINE 180 MG PO DAILY PRN -- ( HOME MED) LEVAQUIN 250 MG PO DAILY X 5 DAYS -- ( NEW ) ALLERGIES iodine Allergy (Verified 08/10/19 16:41) sulfamethoxazole [From Bactrim] Adverse Reaction (Verified 08/10/19 16:41) trimethoprim [From Bactrim] Adverse Reaction (Verified 08/10/19 16:41) DISCONTINUED MEDICATIONS NONE NEW PRESCRIPTIONS: LEVAQUIN 250 MG PO DAILY X 5 DAYS SMOKING: NON- APPLICABLE DISEASE SPECIFIC EDUCATION: UTI COPD EXAC COVID - 19 LEVAQUIN LAB REVIEW: 08/14/19 04:55 08/14/19 04:55 08/14/19 04:55: Sodium 138.6, Potassium 3.89, Chloride 106.2, Carbon Dioxide 25.4, Anion Gap 10.89, BUN 45.4 H, Creatinine 1.43 H, Estimated GFR (MDRD) 35.00, BUN/Creatinine Ratio 31.74, Glucose 135.2 H, Calcium 8.67, Total Bilirubin 0.46, AST 29.3, ALT 24.2, Alkaline Phosphatase 38.8 L, Total Protein 6.43, Albumin 3.60, Globulin 2.83, Albumin/Globulin Ratio 1.27 08/14/19 04:55: WBC 8.14, RBC 3.40 L, Hgb 11.4 L, Hct 34.4 L, MCV 101.2 H, MCH 33.5 H, MCHC 33.1, RDW Coeff of Christopher 13.7, Plt Count 200, Immature Gran % (Auto) 1.2, Neut % (Auto) 79.0 H, Lymph % (Auto) 14.4, [place] % (Auto) 5.4, Eos % (Auto) 0.0, Baso % (Auto) 0.0, Neut # (Auto) 6.4, Lymph # (Auto) 1.2, [place] # (Auto) 0.4, Eos # (Auto) 0.0, Baso # (Auto) 0.0, Immature Gran # (Auto) 0.1 PLAN: DISCHARGE HOME TODAY , AUGUST 14, 2019. ACTIVITY: UP IN HOME. STAY AT HOME UNTIL DRMani SAYS YOU CAN LEAVE ( EXCEPT DR FOLLOW UP APPOINTMENT). WALK FREQUENTLY IN YOUR HOME WITH REST PERIODS. NO STRENUOUS ACTIVITY. DIET: REGULAR. MAKE SURE TO EAT 3 GOOD MEALS A DAY AND DRINK ADEQUATE FLUIDS. FOLLOW UP: SEE DR. QUESADA/MIREYA DIAS APRN NEXT WEEK ON SUNDAY, AUGUST 20, 2019 @ 0900 CALL OFFICE @ [phone] IF ANY CONCERNS . PRESENT TO A LOCAL EMERGENCY ROOM IF IN ANY DISTRESS. CODE STATUS: DO NOT RESUSCITATE. MRS REEDER REMAINS ALERT AND ORIENTED x 4. USUALLY PLEASANT AND VERY TALKATIVE AND REMAINS THE SAME. SHE IS UP TOLERATED WITH OUT ANY ASSISTANCE. NO EXERTIONAL DYSPNEA WITH MILD OR MODERATE ACTIVITY. SKIN REMAINS INTACT. CONTINENT OF BOWEL AND BLADDER. LAST BM 08/13/2019. SHE STATED SHE LIVES ALONE AND REMAINS INDEPENDENT WITH ADLS AND IADLS. HAS A SON THAT HAS A MEAL WITH HER AT LEAST ONCE DAILY. MD MIREYA GAMBOA APRN
--- NOTE | 2019-08-14 11:02 | PN ---
DATE OF SERVICE: 08/12/19 SUBJECTIVE: The patient was seen and examined with nurse practitioner. The patient's condition is stable, improving. Chronic lung disease seems to be improving. PHYSICAL EXAMINATION: HEENT: Head normocephalic, atraumatic. Eyes: Extraocular muscles are intact. Pupils are equal, round and reactive to light and accommodation. Ears: No lesions. Nose appeared normal. Throat: No exudate or erythema. NECK: Supple. No JVD, no carotid bruit. No lymphadenopathy or thyromegaly. LUNGS: Less wheezing noted. Clear to auscultation. Percussion note normal. Chest symmetrical. HEART: S1, S2, no S3. No murmurs. No cyanosis or clubbing. No ascites. Pulses: Dorsalis pedis and posterior tibial pulses +1 to +2 bilaterally. ABDOMEN: Soft. Nontender. Bowel sounds active. No CVA tenderness. No mass felt. EXTREMITIES: No edema. Full range of motion of all extremities, equal. NEUROLOGIC: No focal deficit. Cranial nerves II through XII are grossly intact. No headache, no double vision or headache. SKIN: Not dry. Intact. Turgor - normal. LYMPHATIC: No palpable lymph nodes/no lymphedema. MUSCULOSKELETAL: Normal joints with no swelling. Muscle tone is normal. PLAN: 1. Continue steroid and antibiotics. 2. The patient is Covid negative. TIME SPENT: More than 30 minutes. Plan and coordination of the patient's care discussed in the presence of nurse. SARAH
[2019-08-14] MEDS: CALCIUM 500 + VIT D 200 MG TABLET PO SCH (12:33)
[2019-08-14] MEDS: OMEGA-3 FISH OIL PO SCH (12:33)
[2019-08-14 14:49] VITALS: BP 150/83; TEMP 98.3
--- NOTE | 2019-08-15 13:52 | DS ---
DATE OF SERVICE: 08/14/2019 FINAL DIAGNOSIS: 1. COPD EXACERBATION 2. UTI 3. HYPERTENSION 4. DEHYDRATION,IMPROVING 5. CHRONIC KIDNEY DISEASE, STAGE 3 6. OSTEOARTHRITIS HISTORY OF: 7. CHEST PAIN LIKELY ESOPHAGEAL SPASM FROM NON-STEROIDAL ANTI-INFLAMMATORY 8. GERD 9. CAROTID STENOSIS 10.TIA 11.DYSLIPIDEMIA. 12.HYPERTENSION. 13.CHRONIC LUNG DISEASE 14.CHRONIC KIDNEY DISEASE, STAGE 3 15.NEUROPATHY 16.ACUTE SINUSITIS 17.ATAXIA 18.GENERAL ANXIETY DISORDER 19.OA HIP 20.OSTEOPOROSIS 21.LVEF 56% - 08/20/18 ECHO LAST VITALS: Temp Pulse Resp BP Pulse Ox 97.9 F 61 18 148/75 H 95 08/14/19 05:14 08/14/19 05:14 08/14/19 05:14 08/14/19 05:14 08/14/19 05:14 DISCHARGE INSTRUCTIONS: DISCHARGE HOME TODAY , AUGUST 14, 2019. FOLLOW UP: SEE DR. QUESADA/MIREYA DIAS APRN NEXT WEEK ON TUESDAY, AUGUST 20, 2019 @ 0900. CALL DR OFFICE @ [phone] IF ANY CONCERNS . PRESENT TO A LOCAL EMERGENCY ROOM IF IN ANY DISTRESS. CODE STATUS: DO NOT RESUSCITATE. TAKE THESE MEDICATIONS AT HOME: Acetaminophen (Tylenol) 1,000 mg PO Q6HR PRN PRN Reason: Pain or Fever Last Admin: 08/13/19 16:12 Dose: 1,000 mg Documented by: Amitriptyline HCl (Elavil) 25 mg PO BEDTIME [facility] Last Admin: 08/13/19 20:51 Dose: 25 mg Documented by: Aspirin (Aspirin Chewable) 81 mg PO DAILYWM [facility] Last Admin: 08/14/19 08:47 Dose: 81 mg Documented by: Calcium/Vitamin D (Calcium 500 + Vit D 200 Mg Tablet) 1 each PO 1200 [facility] Last Admin: 08/13/19 11:51 Dose: 1 each Documented by: Clonazepam (Klonopin) 0.5 mg PO BID [facility] Last Admin: 08/14/19 08:47 Dose: 0.5 mg Documented by: Diltiazem HCl (Cardizem Cd) 240 mg PO DAILY [facility] Last Admin: 08/14/19 08:47 Dose: 240 mg Documented by: Ezetimibe (Zetia) 10 mg PO DAILY [facility] Last Admin: 08/14/19 08:47 Dose: 10 mg Documented by: Fish Oil ([place]-3 Fish Oil) 1,000 mg PO 1200 [facility] Last Admin: 08/13/19 11:51 Dose: 1,000 mg Documented by: Furosemide (Lasix Tab) 20 mg PO MoWeFr@0630 [facility] Last Admin: 08/13/19 05:57 Dose: 20 mg Documented by: Lisinopril (Zestril) 20 mg PO DAILY [facility] Last Admin: 08/14/19 08:47 Dose: 20 mg Documented by: Pantoprazole Sodium (Protonix) 40 mg PO BIDAC [facility] Last Admin: 08/14/19 05:37 Dose: 40 mg Documented by: Rosuvastatin Calcium (Crestor) 40 mg PO BEDTIME [facility] Last Admin: 08/13/19 20:51 Dose: 40 mg Documented by: ALBUTEROL SULFATE NEBULIZERS ONE VIAL INH EVERY 4-6 HOURS PRN -- ( HOME MED) FEXOFENADINE 180 MG PO DAILY PRN -- ( HOME MED) LEVAQUIN 250 MG PO DAILY X 5 DAYS -- ( NEW ) ALLERGIES: iodine Allergy (Verified 08/10/19 16:41) sulfamethoxazole [From Bactrim] Adverse Reaction (Verified 08/10/19 16:41) trimethoprim [From Bactrim] Adverse Reaction (Verified 08/10/19 16:41) DISCONTINUED MEDICATIONS: NONE NEW PRESCRIPTIONS: LEVAQUIN 250 MG PO DAILY X 5 DAYS SMOKING: NON- APPLICABLE DISEASE SPECIFIC EDUCATION: UTI COPD EXACERBATION COVID - 19 LEVAQUIN LAB REVIEW: 08/14/19 04:55 08/14/19 04:55 08/14/19 04:55: Sodium 138.6, Potassium 3.89, Chloride 106.2, Carbon Dioxide 25.4, Anion Gap 10.89, BUN 45.4 H, Creatinine 1.43 H, Estimated GFR (MDRD) 35.00, BUN/Creatinine Ratio 31.74, Glucose 135.2 H, Calcium 8.67, Total Bilirubin 0.46, AST 29.3, ALT 24.2, Alkaline Phosphatase 38.8 L, Total Protein 6.43, Albumin 3.60, Globulin 2.83, Albumin/Globulin Ratio 1.27 08/14/19 04:55: WBC 8.14, RBC 3.40 L, Hgb 11.4 L, Hct 34.4 L, MCV 101.2 H, MCH 33.5 H, MCHC 33.1, RDW Coeff of Christopher 13.7, Plt Count 200, Immature Gran % (Auto) 1.2, Neut % (Auto) 79.0 H, Lymph % (Auto) 14.4, [place] % (Auto) 5.4, Eos % (Auto) 0.0, Baso % (Auto) 0.0, Neut # (Auto) 6.4, Lymph # (Auto) 1.2, [place] # (Auto) 0.4, Eos # (Auto) 0.0, Baso # (Auto) 0.0, Immature Gran # (Auto) 0.1 ACTIVITY: UP IN HOME. STAY AT HOME UNTIL DR. SAYS YOU CAN LEAVE ( EXCEPT DR FOLLOW UP APPOINTMENT). WALK FREQUENTLY IN YOUR HOME WITH REST PERIODS. NO STRENUOUS ACTIVITY. DIET: REGULAR. MAKE SURE TO EAT 3 GOOD MEALS A DAY AND DRINK ADEQUATE FLUIDS. HOSPITAL COURSE: The patient was hospitalized with cough and congestion. The patient had exacerbation of COPD. She was treated with IV steroids and antibiotics. COVID was ruled out. The patient also had UTI, e-coli and it was treated with the same antibiotics. At the time of discharge the patient was put on Keflex. She was up and about feeling a lot better. There was no cough or congestion. No symptoms of UTI. Her appetite had improved. CONDITION: Stable. TIME SPENT: More than 60 minutes. MTDD
--- NOTE | 2019-08-15 13:53 | PN ---
08/10/2019: Level 5 08/11/2019: Intermediate 08/12/2019: Intermediate 08/13/2019: Intermediate 08/14/19: D as in discharge MTDD
--- NOTE | 2019-08-19 14:02 | PN ---
DATE OF SERVICE: 08/14/19 - DISCHARGE NOTE SUBJECTIVE: The patient was seen and examined with the nurse practitioner. PHYSICAL EXAMINATION: HEENT: Head normocephalic, atraumatic. Eyes: Extraocular muscles are intact. Pupils are equal, round and reactive to light and accommodation. Ears: No lesions. Nose appeared normal. Throat: No exudate or erythema. NECK: Supple. No JVD, no carotid bruit. No lymphadenopathy or thyromegaly. LUNGS: Clear to auscultation. Percussion note normal. Chest symmetrical. HEART: S1, S2, no S3. No murmurs. No cyanosis or clubbing. No ascites. Pulses: Dorsalis pedis and posterior tibial pulses +1 to +2 bilaterally. ABDOMEN: Soft. Nontender. Bowel sounds active. No CVA tenderness. No mass felt. EXTREMITIES: No edema. Full range of motion of all extremities, equal. NEUROLOGIC: No focal deficit. Cranial nerves II through XII are grossly intact. No headache, no double vision or headache. SKIN: Not dry. Intact. Turgor - normal. LYMPHATIC: No palpable lymph nodes/no lymphedema. MUSCULOSKELETAL: Normal joints with no swelling. Muscle tone is normal. The patient is doing well, bronchitis has resolved. UTI symptomatically resolved. TIME SPENT: More than 30 minutes. Plan and coordination of the patient's care discussed in the presence of nurse. SARAH
== END 2019-08-14 14:20 | disposition home or self-care (01) | DRG 951 ==
LOC: ED 16:34 → SCU 20:02 → MEDSURG B 08-12 16:50
PROVIDERS: ADMIT Internal Medicine; ATTEND Internal Medicine
DX: J44.1 Chronic obstructive pulmonary disease with (acute) exacerbation; R91.1 Solitary pulmonary nodule; Z79.899 Other long term (current) drug therapy; K21.9 Gastro-esophageal reflux disease without esophagitis; Z86.73 Personal history of transient ischemic attack (TIA), and cerebral infarction without residual deficits; R07.9 Chest pain, unspecified; Z87.440 Personal history of urinary (tract) infections; Z86.79 Personal history of other diseases of the circulatory system; Z51.81 Encounter for therapeutic drug level monitoring; I10 Essential (primary) hypertension; F41.1 Generalized anxiety disorder; M19.90 Unspecified osteoarthritis, unspecified site; R06.02 Shortness of breath; B96.20 Unspecified Escherichia coli [E. coli] as the cause of diseases classified elsewhere; R05 Cough; R53.83 Other fatigue; M81.0 Age-related osteoporosis without current pathological fracture; R06.00 Dyspnea, unspecified; E87.3 Alkalosis; Z03.818 Encounter for observation for suspected exposure to other biological agents ruled out; Z91.81 History of falling; E86.0 Dehydration; N39.0 Urinary tract infection, site not specified; R27.0 Ataxia, unspecified; N18.3 Chronic kidney disease, stage 3 (moderate); Z86.69 Personal history of other diseases of the nervous system and sense organs

== ENCOUNTER 2023-06-12 23:52 | Inpatient (IN) ==
--- NOTE | 2023-06-13 01:54 | DI ---
EXAM: TWO VIEWS LEFT ELBOW. HISTORY: Fall, left elbow injury. COMPARISON: None. FINDINGS / IMPRESSION: Soft tissue swelling around the elbow. No acute fracture. No dislocation. No joint effusion. Bones appear demineralized.
--- NOTE | 2023-06-13 01:55 | DI ---
EXAM: THREE VIEWS LEFT SHOULDER. HISTORY: Fall, left shoulder pain. COMPARISON: Radiographs 06/06/2022. FINDINGS / IMPRESSION: No acute fracture or dislocation. Mild degenerative change of the acromioclavicular joint. Osseous demineralization.
--- NOTE | 2023-06-13 02:01 | CT ---
EXAM: CHEST CT WITHOUT CONTRAST HISTORY: Fall, left rib pain. TECHNIQUE: CT acquisition of the chest from the thoracic inlet to the upper abdomen without IV contra st administration. COMPARISON: CT chest 10/25/2022. FINDINGS: Lung Parenchyma, Pleura, and Airways: Central airways are patent. Stable band-like scarring and mild bronchiectasis in the middle lobe. No acute airspace disease, laceration, or contusion. No pneumotho rax. No pleural effusion. Thoracic Inlet, Mediastinum, and Lakia: Thyroid gland is normal. No hematoma. Heart, Vessels, and Pericardium: Heavy coronary calcifications. Aortic valve calcifications. Scatter ed atherosclerotic calcifications of the aorta. No evidence of aortic injury. No cardiomegaly. Trace pericardial fluid. Bones and Soft Tissues: Bones appear demineralized. No acute fracture identified. Chronic-appearing left seventh rib fracture. No soft tissue hematoma. Upper Abdomen: Unremarkable. IMPRESSION: No acute chest injury demonstrated. Atherosclerosis with heavy coronary calcifications. All CT scans are performed using dose optimization techniques as appropriate to the performed exam an d include at least one of the following: Automated exposure control, adjustment of the mA and/or kV according t o size, and the use of iterative reconstruction technique.
--- NOTE | 2023-06-13 02:07 | ED.PDOC ---
General ED Provider: Dr. ORIANA SEBASTIAN DO Chief Complaint: Fall Stated Complaint: 88-year-old female brought in by her family concern for changes in her behavior gradual over the last several months but recently worsening. This is included several falls. She is fallen 3 times in the last week per their report. She had a heart catheterization in the right wrist approximately 1 week ago. She has another one scheduled in June for a femoral cath. She apparently has been speaking in ways that made her seem confused although she has remained conversational. She lives independently in an apartment. There is no reported hallucinations. No reported recent illnesses, headache, fever, chest pain, shortness of breath, abdominal pain. She does have chronic constipation. No reported diarrhea or genitourinary symptoms. Patient has a history of acid reflux, CKD, hypertension, coronary artery disease on Plavix. Time Seen by Provider: 06/13/23 00:03 Information Source: Patient Primary Care Provider: TARA QUESADA MD Nursing and Triage Documentation Reviewed and Agree: Yes What is Opioid Naive?: *Opioid Naive implies the patient is not already taking opioids or not chronically receiving opioids on a daily basis. *PRN dosing is not "usually" associated with tolerance. *Patients are at higher risk of over-sedation and aspiration. What is Opioid Tolerant?: *Opioid Tolerance implies less than the expected response to an opioid. *Acquired tolerance is defined by the patient taking 60mg of oral morphine daily (or equianalgesic dose of another opioid) for 1 week or more. *Often associated with chronic pain. *May take more than usual dose to achieve desired pain control. Review of Systems Review Of Systems Constitutional: Reports No symptoms All Other Systems: Reviewed and Negative [facility] Medical History (Updated 06/13/23 @ 08:46 by ORIANA SEBASTIAN DO) Allergic rhinitis J30.9 - Allergic rhinitis, unspecified (ICD-10) Respiratory failure J96.90 - RESPIRATORY FAILURE, UNSP, UNSP W HYPOXIA OR HYPERCAPNIA (ICD-10) History of acute renal failure Z87.448 - Personal history of other diseases of urinary system (ICD-10) Lung nodule R91.1 - Solitary pulmonary nodule (ICD-10) Anxiety F41.9 - Anxiety disorder, unspecified (ICD-10) Recurrent UTI (urinary tract infection) N39.0 - Urinary tract infection, site not specified (ICD-10) Chronic sinusitis J32.9 - Chronic sinusitis, unspecified (ICD-10) Acute renal failure N17.9 - Acute kidney failure, unspecified (ICD-10) Hyperkalemia E87.5 - Hyperkalemia (ICD-10) Low back pain M54.50 - Low back pain, unspecified (ICD-10) Dizziness R42 - Dizziness and giddiness (ICD-10) Falls W19.XXXA - Unspecified fall, initial encounter (ICD-10) Vagina, candidiasis B37.31 - Acute candidiasis of vulva and vagina (ICD-10) Allergies T78.40XA - Allergy, unspecified, initial encounter (ICD-10) Bladder polyps D41.4 - Neoplasm of uncertain behavior of bladder (ICD-10) High cholesterol E78.00 - Pure hypercholesterolemia, unspecified (ICD-10) Hypertension I10 - Essential (primary) hypertension (ICD-10) Family History Mother Hypertension Other Cancer Social History Smoking and tobacco status: Never smoker Alcohol intake: never Substance use type: does not use Special aida needs: No Agree to transfusion: Yes Adopted: No Caregiver/support person: No Foster care: No Household members: none Housing: apartment Marital status: W / Lives independently: Yes Number of children: 6 service: No group home: No History of recent travel: No Do you think of yourself as: straight/heterosexual Current gender identity: female Seatbelt use: always Drives intoxicated or rides with intoxicated gas truck driver: No Water heater temperature set < 120 degrees: Yes Working smoke detector in home: Yes Fire extinguisher in home: Yes Carbon monoxide detector in home: Yes Firearms in home: No Surgical History History of left heart catheterization 1991 and 2000 Z98.890 - Other specified postprocedural states (ICD-10) History of bladder surgery REMOVAL OF POLYPS Z98.89 - Other specified postprocedural states (ICD-10) Female Reproductive History Menstrual Hx Hysterectomy: No Hx Tubal Ligation: No Physical Exam Physical Exam Appearance: Reports Well-appearing, No pain distress, Well-nourished and Other (gcs 15) Eyes: Reports DG, EOMI and Conjunctiva clear ENT: Reports Nose normal and Oropharynx normal Respiratory: Reports Airway patent, Breath sounds clear and Respirations nonlabored Cardiovascular: Reports RRR and Pulses normal GI/: Reports Soft and Nontender Musculoskeletal: Reports Normal strength, ROM intact, No edema and Other (Left elbow edema with contusion.) Skin: Reports Warm, Dry and Normal color Neurological: Reports Sensation intact, Motor intact, Reflexes intact, Cranial nerves intact, Alert and Oriented Psychiatric: Reports Affect appropriate and Mood appropriate Interpretation EKG Interpretation EKG Interpretation By: ED Physician Time of EKG #1: 01:52 Rate: Bj Rhythm: Sinus Ectopy: None [place]: NL ST Segment: Normal Interpretation: Nonischemic EKG. Normal intervals Course Course 06/13/23 02:05 06/13/23 07:42 Orders, Labs, Meds: Lab Review 06/13/23 06/13/23 06/13/23 01:28 02:05 03:12 WBC 8.51 RBC 3.78 L Hgb 12.5 Hct 38.4 MCV 101.6 H MCH 33.1 H MCHC 32.6 RDW Coeff of Christopher 12.8 Plt Count 187 Immature Gran % (Auto) 0.1 Neut % (Auto) 68.8 Lymph % (Auto) 22.9 [place] % (Auto) 7.5 Eos % (Auto) 0.5 Baso % (Auto) 0.2 Neut # (Auto) 5.9 Lymph # (Auto) 2.0 [place] # (Auto) 0.6 Eos # (Auto) 0.0 Baso # (Auto) 0.0 Immature Gran # (Auto) 0.0 Sodium 136.6 Potassium 5.35 H Chloride 107.4 H Carbon Dioxide 25.7 Anion Gap 8.85 BUN 28.3 H Creatinine 1.49 H Estimated GFR (MDRD) 33.00 BUN/Creatinine Ratio 18.99 Glucose 129.9 H Calcium 9.17 Total Bilirubin 0.87 AST 40.8 H ALT 25.1 Alkaline Phosphatase 49.7 L Troponin I < 0.012 NT-Pro-B Natriuret Pep 452 H Total Protein 6.67 Albumin 3.93 Globulin 2.74 Albumin/Globulin Ratio 1.43 Urine Color Yellow Urine Clarity Clear Urine pH 6.0 Ur Specific [place] >=1.030 Urine Protein 2+ H Urine Glucose (UA) Negative Urine Ketones Negative Urine Blood Negative Urine Nitrite Negative Urine Bilirubin Negative Urine Urobilinogen 1.0 H Ur Leukocyte Esterase Negative Urine Microscopic RBC 0-2 Ur Squamous Epith Cells 0-2 Urine Opiates Screen Negative Ur Oxycodone Screen Negative Urine Methadone Screen Negative Ur Barbiturates Screen Negative U Tricyclic Antidepress Positive H Ur Phencyclidine Scrn Negative Ur Amphetamine Screen Negative U Methamphetamines Scrn Negative U Benzodiazepines Scrn Negative Urine Cocaine Screen Negative U Cannabinoids Screen Negative SARS CoV-2 RNA Rapid ADRIANA 06/13/23 06/13/23 06:45 07:42 WBC RBC Hgb Hct MCV MCH MCHC RDW Coeff of Christopher Plt Count Immature Gran % (Auto) Neut % (Auto) Lymph % (Auto) [place] % (Auto) Eos % (Auto) Baso % (Auto) Neut # (Auto) Lymph # (Auto) [place] # (Auto) Eos # (Auto) Baso # (Auto) Immature Gran # (Auto) Sodium Potassium 4.39 Chloride Carbon Dioxide Anion Gap BUN Creatinine Estimated GFR (MDRD) BUN/Creatinine Ratio Glucose Calcium Total Bilirubin AST ALT Alkaline Phosphatase Troponin I NT-Pro-B Natriuret Pep Total Protein Albumin Globulin Albumin/Globulin Ratio Urine Color Urine Clarity Urine pH Ur Specific [place] Urine Protein Urine Glucose (UA) Urine Ketones Urine Blood Urine Nitrite Urine Bilirubin Urine Urobilinogen Ur Leukocyte Esterase Urine Microscopic RBC Ur Squamous Epith Cells Urine Opiates Screen Ur Oxycodone Screen Urine Methadone Screen Ur Barbiturates Screen U Tricyclic Antidepress Ur Phencyclidine Scrn Ur Amphetamine Screen U Methamphetamines Scrn U Benzodiazepines Scrn Urine Cocaine Screen U Cannabinoids Screen SARS CoV-2 RNA Rapid ADRIANA Negative Orders Category Date Time Status ADMIT OBSERVATION [PLACE PATIENT OBSERVATION] .TO ADMISSION 06/13/23 08:23 Active MEDSURG (NON-MONITORED BED) EKG-(ED ONLY) Stat CARDIO 06/13/23 01:28 Completed CBC W/ AUTO DIFF Stat LAB 06/13/23 02:05 Completed CMP [COMPREHENSIVE METABOLIC PANEL] Stat LAB 06/13/23 01:28 Completed COVID [SARS COV-2 RNA RAPID ADRIANA] Stat LAB 06/13/23 06:45 Completed DRUG SCREEN (RAPID FOR ED) [DRUG SCREEN, URINE, RAPID] LAB 06/13/23 03:12 Completed Stat ED PROBNP [NT-PROBNP(ED)] Stat LAB 06/13/23 02:05 Completed POTASSIUM Stat LAB 06/13/23 07:42 Completed TROPONIN I Stat LAB 06/13/23 01:28 Completed URINALYSIS C & S IF INDICATED Stat LAB 06/13/23 03:12 Completed Sodium Chloride 0.9% [Sodium Chloride] 1,000 ml Meds 06/13/23 03:33 Active IV 50 mls/hr Sodium Chloride 0.9% [Sodium Chloride] 1,000 ml Meds 06/13/23 03:[address] CHEST W/O CONTRAST Stat RADS 06/13/23 00:[address] HEAD W/O CONTRAST Stat RADS 06/13/23 01:28 Completed ELBOW, LEFT 2 VIEWS Stat RADS 06/13/23 00:12 Completed SHOULDER, LEFT MIN 2V Stat RADS 06/13/23 00:12 Completed Medications Generic Name Dose Route Start Last Admin Trade Name Freq PRN Reason Stop Dose Admin Sodium Chloride 1,000 mls @ 50 mls/hr 06/13/23 03:33 06/13/23 03:40 Sodium Chloride IV 06/13/23 23:32 50 mls/hr .Q20H ONE Administration Discontinued Medications Generic Name Dose Route Start Last Admin Trade Name Freq PRN Reason Stop Dose Admin Sodium Chloride 1,000 mls @ 1,000 mls/hr 06/13/23 03:01 06/13/23 03:57 Sodium Chloride IV 06/13/23 04:00 Not Given BOLUS ONE Vital Signs: Temp Pulse Resp BP Pulse Ox 06/13/23 00:44 97.5 F L 55 L 18 99/60 94 L Discharge Plan Discharge Patient Disposition: PLACED OBSERVATION Discharge Problem: Recurrent falls, Dehydration Closed head injury Qualifiers: Encounter type: initial encounter Qualified Code(s): S09.90XA - Unspecified injury of head, initial encounter Contusion of elbow, left Qualifiers: Encounter type: initial encounter Qualified Code(s): S50.02XA - Contusion of left elbow, initial encounter Prescriptions: No Action pantoprazole 40 mg tablet,delayed release (DR/EC) See Rx Instructions .ROUTE .COMPLEX Qty: 90 1RF Dose Instruction: TAKE ONE (1) TABLET BY MOUTH DAILY Rx Instructions: TAKE ONE (1) TABLET BY MOUTH DAILY montelukast 10 mg tablet See Rx Instructions .ROUTE .COMPLEX Qty: 90 1RF Dose Instruction: TAKE ONE (1) TABLET BY MOUTH EVERY DAY Rx Instructions: TAKE ONE (1) TABLET BY MOUTH EVERY DAY diltiazem HCl 240 mg capsule,extended release 24hr See Rx Instructions .ROUTE .COMPLEX Qty: 90 1RF Dose Instruction: TAKE ONE (1) CAPSULE BY MOUTH DAILY Rx Instructions: TAKE ONE (1) CAPSULE BY MOUTH DAILY rosuvastatin 40 mg tablet See Rx Instructions .ROUTE .COMPLEX Qty: 90 1RF Dose Instruction: TAKE ONE (1) TABLET BY MOUTH EVERY DAY Rx Instructions: TAKE ONE (1) TABLET BY MOUTH EVERY DAY lisinopril 20 mg tablet See Rx Instructions .ROUTE .COMPLEX Qty: 180 1RF Dose Instruction: TAKE ONE (1) TABLET BY MOUTH TWICE DAILY Rx Instructions: TAKE ONE (1) TABLET BY MOUTH TWICE DAILY ezetimibe 10 mg tablet See Rx Instructions .ROUTE .COMPLEX Qty: 90 1RF Dose Instruction: TAKE ONE (1) TABLET BY MOUTH EVERY DAY Rx Instructions: TAKE ONE (1) TABLET BY MOUTH EVERY DAY hydroxyzine HCl 25 mg tablet See Rx Instructions .ROUTE .COMPLEX Qty: 60 2RF Dose Instruction: TAKE ONE (1) TABLET BY MOUTH TWICE A DAY NEEDED FOR ANXIETY Rx Instructions: TAKE ONE (1) TABLET BY MOUTH TWICE A DAY NEEDED FOR ANXIETY nitroglycerin 0.4 mg tablet, sublingual See Rx Instructions .ROUTE .COMPLEX Qty: 30 2RF Dose Instruction: TAKE ONE (1) TABLET SUBLINGUALLY EVERY 5 TO 15 MINUTES NEEDED FOR CHEST PAIN; DO NOT EXCEED 3 DOSES PER EPISODE Rx Instructions: TAKE ONE (1) TABLET SUBLINGUALLY EVERY 5 TO 15 MINUTES NEEDED FOR CHEST PAIN; DO NOT EXCEED 3 DOSES PER EPISODE clopidogrel 75 mg tablet 75 mg PO DAILY famotidine 10 mg tablet 10 mg PO BID isosorbide mononitrate 30 mg tablet extended release 24 hr 30 mg PO DAILY ranolazine 1,000 mg tablet extended release 12 hr 1,000 mg PO BID cholecalciferol (vitamin D3) 10 mcg (400 unit) capsule 10 mcg PO DAILY albuterol sulfate 2.5 mg /3 mL (0.083 %) solution for nebulization See Rx Instructions .ROUTE .COMPLEX Rx Instructions: USE ONE (1) VIAL BY NEBULIZER 2 TIMES DAILY amitriptyline 25 mg tablet 25 mg PO DAILY Rx Instructions: Take 1 tab by mouth every night acetaminophen [Tylenol Extra Strength] 500 mg Tablet 1,000 mg PO Q6HR PRN (Reason: Pain) aspirin 81 mg tablet,delayed release (DR/EC) 81 mg PO QDAY Qty: 30 2RF omega 5-uwu-xph-fish oil [Fish Oil] 1,000 mg (120 mg-180 mg) capsule 1 cap PO DAILY Rx Instructions: Take 1 cap by mouth daily with breakfast fluticasone propionate 50 mcg/actuation spray,suspension 1 spray intranasal DAILY PRN (Reason: allergy symptoms) Rx Instructions: administer into each nostril diclofenac sodium 1 % gel 2 g topical QID PRN (Reason: leg cramp) Qty: 100 0RF Rx Instructions: apply cream to left leg 2 times daily as needed Did you review [place] IVF EMBRYOLOGIST for ALL controlled substances?: Not Applicable ED Provider: ORIANA SEBASTIAN Condition: Stable Physician Progress Note: [] 88-year-old female presents to the ER with family concern for behavioral changes and multiple falls. This could be secondary to aging, new onset dementia, infectious or metabolic etiology, secondary to trauma. She is on Plavix. Given the falls, will obtain head CT. Doubt acute neurologic events to include not limited to CVA, TIA, SAH, SDH, ICH. Nonfocal neuroexam with respect to cranial nerves, peripheral sensorimotor. Patient apparently is unsteady on her feet. Will not test this emergency department due to risk of injury. Afebrile nontoxic doubt systemic infection. Other infectious etiology not excluded. Will obtain laboratory workup to include urinalysis, metabolic profile, cardiac enzymes and EKG. Patient may benefit from hospitalization if were able to find admitting diagnosis for subsequent possible placement in rehab and/or nursing facility due to concern for safety given her recent falls and changes in behavior. Discussed this at length with family who understands and agreeable to trying to find an admitting diagnosis 0334: Patient is remained stable. Imaging grossly unremarkable for acute fracture or dislocation. There is evidence of trauma. I am concerned about the safety of this patient. Her renal function seems consistent with prior but may demonstrate an element of dehydration. Her potassium is 5.35. EKG is bradycardic otherwise normal intervals. Believe gentle hydration may aid with this. Given this patient with chronic kidney disease and an elevated potassium as well as a slightly elevated BNP. I will try to contact the hospital service later this morning to request observation for further stabilization and monitoring as well as concern for patient's safety. 0843: Patient remained stable throughout the night. Repeat potassium has come down quite well. I discussed case with the hospitalist service including my concerns. They have graciously been agreeable to trying places patient in observation for reasons stated above. Patient otherwise stable for admission at this time.
[2023-06-13 02:14] LABS: BASOPHILS % (AUTO) 0.2 % (0.0-3.0); EOSINOPHILS % (AUTO) 0.5 % (0.0-7.0); HEMATOCRIT 38.4 % (37.0-47.0); HEMOGLOBIN 12.5 g/dl (12.0-16.0); IMMATURE GRANULOCYTE % (AUTO) 0.1 % (0.0-5.0); LYMPHOCYTES % (AUTO) 22.9 (10.0-50.0); MEAN CORPUSCULAR HEMOGLOBIN 33.1 pg (27.0-31.0); MEAN CORPUSCULAR HGB CONC 32.6 (31.8-35.4); MEAN CORPUSCULAR VOLUME 101.6 fl (81.0-99.0); MONOCYTES # (AUTO) 0.6 K/uL (0.4-2.0); MONOCYTES % (AUTO) 7.5 (0-10); NEUTROPHILS # (AUTO) 5.9 K/ul (2.0-6.9); NEUTROPHILS % (AUTO) 68.8 % (42.2-75.2); PLATELET COUNT 187 10^3/uL (140-440); RDW COEFFICIENT OF VARIATION 12.8 % (11.6-14.8); RED BLOOD COUNT 3.78 10^6/ul (4.20-5.40); WHITE BLOOD COUNT 8.51 K/ul (4.6-10.2)
--- NOTE | 2023-06-13 02:17 | CT ---
EXAM: CT HEAD WITHOUT CONTRAST TECHNIQUE: Noncontrast CT of the head with multiple reformats. HISTORY: Fall. Hit back of head. COMPARISON: None. FINDINGS: No evidence of acute infarction, hemorrhage, or mass. Mild brain volume loss. Mild chronic microvascular changes of the white matter. Atherosclerotic calcifications of the carotid siphons. No brain herniation. Patent basilar cisterns. Ventricles are proportional to brain volume. No acute osseous abnormality. Hyperostosis frontalis interna. Bilateral lens replacements of the globes. Soft tissue contusion in the left parietal scalp. IMPRESSION: No acute intracranial abnormality. Left parietal scalp contusion. Chronic and incidental findings as above. All CT scans are performed using dose optimization techniques as appropriate to the performed exam an d include at least one of the following: Automated exposure control, adjustment of the mA and/or kV according t o size, and the use of iterative reconstruction technique.
[2023-06-13 02:29] LABS: ALANINE AMINOTRANSFERASE 25.1 U/L (0-35); ALBUMIN 3.93 g/dL (3.5-5.0); ALKALINE PHOSPHATASE 49.7 U/L (53-141); ASPARTATE AMINO TRANSFERASE 40.8 U/L (14-36); BILIRUBIN,TOTAL 0.87 mg/dL (0.2-1.3); BLOOD UREA NITROGEN 28.3 mg/dL (7-17); CALCIUM 9.17 mg/dL (8.4-10.2); CARBON DIOXIDE 25.7 mmol/L (22-30.0); CHLORIDE 107.4 mmol/L (98-107); CREATININE 1.49 mg/dL (0.60-1.30); GLUCOSE 129.9 mg/dL (74-106); SODIUM 136.6 mmol/L (134.5-145); TOTAL PROTEIN 6.67 g/dL (6.3-8.2)
[2023-06-13 02:44] LABS: POTASSIUM 5.35 mmol/L (3.5-5.1); TROPONIN I < 0.012 ng/ml (0.0000-0.120)
[2023-06-13 03:18] LABS: BILIRUBIN,URINE Negative (NEGATIVE); CLARITY,URINE Clear (CLEAR); COLOR,URINE Yellow (YELLOW); GLUCOSE, URINE (UA) Negative (NEGATIVE); KETONES,URINE Negative (NEGATIVE); LEUKOCYTE ESTERASE ,URINE Negative (NEGATIVE); NITRITE,URINE Negative (NEGATIVE); PROTEIN,URINE 2+ (NEGATIVE); URINE, BLOOD Negative (NEGATIVE)
[2023-06-13 03:32] LABS: SQUAMOUS EPITHELIAL CELL,UR 0-2 (0-5); URINE RBC, MICROSCOPIC 0-2 (0-2)
[2023-06-13 03:35] LABS: AMPHETAMINE SCREEN,URINE NEGATIVE (NEGATIVE); BARBITURATE SCREEN,URINE NEGATIVE (NEGATIVE); BENZODIAZEPINES SCREEN,URINE NEGATIVE (NEGATIVE); CANNABINOID SCREEN,URINE NEGATIVE (NEGATIVE); COCAIN SCREEN,URINE NEGATIVE (NEGATIVE); METHADONE URINE SCREEN NEGATIVE (NEGATIVE); METHAMPHETAMINES SCREEN,URINE NEGATIVE (NEGATIVE); OPIATE SCREEN,URINE NEGATIVE (NEGATIVE); OXYCODONE URINE SCREEN NEGATIVE (NEGATIVE); PHENCYCLIDINE SCREEN,URINE NEGATIVE (NEGATIVE); TRICYCLIC ANTIDEPRESSANTS URIN POSITIVE (NEGATIVE)
[2023-06-13] MEDS: SODIUM CHLORIDE 1,000 ML IV ONE ×2 (03:40→03:57)
[2023-06-13 07:09] LABS: SARS COV-2 RNA RAPID NAAT NEGATIVE (NEGATIVE)
[2023-06-13] MEDS ORDERED: ZOFRAN 4 MG/2 ML IVP PRN (09:14)
[2023-06-13 09:32] VITALS: BMI 23.3
[2023-06-13] MEDS ORDERED: ZETIA PO SCH (10:00)
[2023-06-13] MEDS: SINGULAIR PO SCH (10:19)
[2023-06-13] MEDS: ZETIA PO SCH (10:19)
[2023-06-13] MEDS: IMDUR PO SCH (10:19)
[2023-06-13] MEDS: CARDIZEM CD PO SCH (10:19)
[2023-06-13] MEDS: ASPIRIN EC PO SCH (10:19)
[2023-06-13] MEDS: PROTONIX PO SCH (10:20)
[2023-06-13] MEDS: PEPCID PO SCH (10:20)
[2023-06-13] MEDS: RANEXA PO SCH ×2 (10:21→20:34)
[2023-06-13] MEDS: PLAVIX PO SCH (10:21)
[2023-06-13] MEDS: ZESTRIL PO SCH (10:21)
[2023-06-13] MEDS: TYLENOL PO PRN (11:11)
[2023-06-13] MEDS: LACTATED RINGERS 1,000 ML IV SCH (11:14)
--- NOTE | 2023-06-13 11:19 | PCM ---
Date of Service Date Seen by Provider: 06/13/23 Time Seen by Provider: 09:45 Admit Day/Time Admission Date: 06/13/23 Admission Time: 08:23 Reason for Admission Chief Complaint: RECURRING FALLS; ANTIPLAT THERAPY; CKD; DEHYD Hospital Provider Hospital Provider: CAROLYN HAYWARD PA-C, [facility] [place] Primary Care Physician Primary Care Physician: TARA ARROYO MD History of Present Illness History of Present Illness: Patient is an 88 year old female from home who presented to ER with fall. Patient has reportedly fallen 3x this week, including hitting her head and left elbow. She states that she just feels like her legs give out. She reported to nursing she sometimes gets dizzy and nauseated. It is a new problem in the last week or two. 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 She has in the meantime been increased to Ranexa 1000 mg bid and added imdur 30 mg daily. Plavix was also added to her daily asa. In the ER ct head, chest, x rays of left shoulder and elbow were all negative. Labs overall unremarkable. Family worries about safety at home with new frequent falls and recent addition of plavix. She lives at home alone. Patient admitted to [facility] for further evaluation. She was found to have orthostatic hypotension, systolic dropping from 142 to 91 with standing. She was also very symptomatic with this, asking to sit down due to dizziness/weakness. Case Discussed With Case Discussed With: Patient's case was discussed with the ER Physicians, Dr. Raman [facility] Medical History Allergic rhinitis J30.9 - Allergic rhinitis, unspecified (ICD-10) Respiratory failure J96.90 - RESPIRATORY FAILURE, UNSP, UNSP W HYPOXIA OR HYPERCAPNIA (ICD-10) History of acute renal failure Z87.448 - Personal history of other diseases of urinary system (ICD-10) Lung nodule R91.1 - Solitary pulmonary nodule (ICD-10) Anxiety F41.9 - Anxiety disorder, unspecified (ICD-10) Recurrent UTI (urinary tract infection) N39.0 - Urinary tract infection, site not specified (ICD-10) Chronic sinusitis J32.9 - Chronic sinusitis, unspecified (ICD-10) Acute renal failure N17.9 - Acute kidney failure, unspecified (ICD-10) Hyperkalemia E87.5 - Hyperkalemia (ICD-10) Low back pain M54.50 - Low back pain, unspecified (ICD-10) Dizziness R42 - Dizziness and giddiness (ICD-10) Falls W19.XXXA - Unspecified fall, initial encounter (ICD-10) Vagina, candidiasis B37.31 - Acute candidiasis of vulva and vagina (ICD-10) Allergies T78.40XA - Allergy, unspecified, initial encounter (ICD-10) Bladder polyps D41.4 - Neoplasm of uncertain behavior of bladder (ICD-10) High cholesterol E78.00 - Pure hypercholesterolemia, unspecified (ICD-10) Hypertension I10 - Essential (primary) hypertension (ICD-10) Surgical History History of left heart catheterization 1991 and 2000 Z98.890 - Other specified postprocedural states (ICD-10) History of bladder surgery REMOVAL OF POLYPS Z98.89 - Other specified postprocedural states (ICD-10) Family History Mother Hypertension Other Cancer Social History Smoking and tobacco status: Never smoker Alcohol intake: never Substance use type: does not use Special aida needs: No Agree to transfusion: Yes Adopted: No Caregiver/support person: No Foster care: No Household members: none Housing: apartment Marital status: W / Lives independently: Yes Number of children: 6 service: No detention: No History of recent travel: No Do you think of yourself as: straight/heterosexual Current gender identity: female Seatbelt use: always Drives intoxicated or rides with intoxicated 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 Water heater temperature set < 120 degrees: Yes Working smoke detector in home: Yes Fire extinguisher in home: Yes Carbon monoxide detector in home: Yes Firearms in home: No Allergies Allergies Allergy/AdvReac Type Severity Reaction Status Date / Time iodine Allergy Unknown Unknown Verified 06/13/23 11:02 sulfamethoxazole AdvReac Unknown Unknown Verified 06/13/23 11:02 [From Bactrim] trimethoprim [From Bactrim] AdvReac Unknown Unknown Verified 06/13/23 11:02 IV dye AdvReac Unknown unknown Uncoded 06/13/23 11:02 Current Medications Home Medications acetaminophen 500 mg tablet (Tylenol Extra Strength) 1,000 mg PO Q6HR PRN Pain 08/10/19 [History Confirmed 06/13/23 Last Taken Unknown] diclofenac sodium 1 % topical gel 2 g topical QID PRN leg cramp #100 grams 04/24/22 [Rx Confirmed 06/13/23 Last Taken Unknown] fluticasone propionate 50 mcg/actuation nasal spray,suspension 1 spray intranasal DAILY PRN allergy symptoms 04/24/22 [History Confirmed 06/13/23 Last Taken Unknown] omega 4-[id number]-[id number]-fish oil 1,000 mg (120 mg-180 mg) capsule (Fish Oil) 1 cap PO DAILY 04/24/22 [History Confirmed 06/13/23 Last Taken 06/12/23] pantoprazole 40 mg tablet,delayed release See Rx Instructions .Route .COMPLEX #90 tabs 10/30/22 [Rx Confirmed 06/13/23 Last Taken 06/12/23] diltiazem HCl 240 mg capsule,extended release 24 hr See Rx Instructions .Route .COMPLEX #90 caps 02/20/23 [Rx Confirmed 06/13/23 Last Taken 06/12/23] montelukast 10 mg tablet See Rx Instructions .Route .COMPLEX #90 tabs 02/20/23 [Rx Confirmed 06/13/23 Last Taken 06/12/23] lisinopril 20 mg tablet See Rx Instructions .Route .COMPLEX #180 tabs 03/15/23 [Rx Confirmed 06/13/23 Last Taken 06/12/23] rosuvastatin 40 mg tablet See Rx Instructions .Route .COMPLEX #90 tabs 03/15/23 [Rx Confirmed 06/13/23 Last Taken Unknown] aspirin 81 mg tablet,delayed release 81 mg PO QDAY #30 tabs 04/24/23 [Rx Confirmed 06/13/23 Last Taken Unknown] ezetimibe 10 mg tablet See Rx Instructions .Route .COMPLEX #90 tabs 05/07/23 [Rx Confirmed 06/13/23 Last Taken 06/12/23] hydroxyzine HCl 25 mg tablet See Rx Instructions .Route .COMPLEX #60 tabs 05/17/23 [Rx Confirmed 06/13/23 Last Taken 06/12/23] nitroglycerin 0.4 mg sublingual tablet See Rx Instructions .Route .COMPLEX #30 tabs 05/24/23 [Rx Confirmed 06/13/23 Last Taken Unknown] albuterol sulfate 2.5 mg/3 mL (0.083 %) solution for nebulization See Rx In structions .Route .COMPLEX 06/13/23 [History Confirmed 06/13/23 Last Taken 06/12/23] amitriptyline 25 mg tablet 25 mg PO DAILY 06/13/23 [History Confirmed 06/13/23 Last Taken 06/12/23] cholecalciferol (vitamin D3) 10 mcg (400 unit) capsule 10 mcg PO DAILY 06/13/23 [History Confirmed 06/13/23 Last Taken 06/12/23] clopidogrel 75 mg tablet 75 mg PO DAILY 06/13/23 [History Confirmed 06/13/23 Last Taken 06/12/23] famotidine 10 mg tablet 10 mg PO BID 06/13/23 [History Confirmed 06/13/23 Last Taken 06/12/23] isosorbide mononitrate 30 mg tablet,extended release 24 hr 30 mg PO DAILY 06/13/23 [History Confirmed 06/13/23 Last Taken 06/12/23] ranolazine 1,000 mg tablet,extended release,12 hr 1,000 mg PO BID 06/13/23 [History Confirmed 06/13/23 Last Taken 06/12/23] Home Acetaminophen (Acetaminophen 325 Mg Tablet) 650 mg PO Q4H PRN PRN Reason: Mild Pain Last Admin: 06/13/23 11:11 Dose: 650 mg Amitriptyline HCl (Amitriptyline Hcl 25 Mg Tablet) 25 mg PO BEDTIME [facility] Aspirin (Aspirin 81 Mg Tablet.) 81 mg PO DAILYWM2 [facility] Last Admin: 06/13/23 10:19 Dose: 81 mg Clopidogrel Bisulfate (Clopidogrel Bisulfate 75 Mg Tablet) 75 mg PO DAILY [facility] Last Admin: 06/13/23 10:21 Dose: 75 mg Diltiazem HCl (Diltiazem Hcl 120 Mg Cap.Er.24h) 240 mg PO DAILY [facility] Last Admin: 06/13/23 10:19 Dose: 240 mg Ezetimibe (Ezetimibe 10 Mg Tablet) 10 mg PO DAILY [facility] Last Admin: 06/13/23 10:19 Dose: 10 mg Enoxaparin Sodium (Enoxaparin Sodium 30 Mg/0.3 Ml Syr) 30 mg SUBCUT DAILY [facility] Famotidine (Famotidine 20 Mg Tablet) 10 mg PO BIDAC2 [facility] Last Admin: 06/13/23 10:20 Dose: 10 mg Sodium Chloride (Sodium Chloride) 1,000 mls @ 50 mls/hr IV .Q20H ONE Stop: 06/13/23 23:32 Last Infusion: 06/13/23 11:15 Dose: 50 mls/hr Lactated Ringer's (Lactated Ringers) 1,000 mls @ 75 mls/hr IV .[id number] [facility] Last Admin: 06/13/23 11:14 Dose: 75 mls/hr Isosorbide Mononitrate (Isosorbide Mononitrate 30 Mg Tab.Er.24h) 30 mg PO DAILY [facility] Last Admin: 06/13/23 10:19 Dose: 30 mg Lisinopril (Lisinopril 10 Mg Tablet) 20 mg PO BID [facility] Last Admin: 06/13/23 10:21 Dose: 20 mg Montelukast Sodium (Montelukast Sodium 10 Mg Tablet) 10 mg PO DAILY [facility] Last Admin: 06/13/23 10:19 Dose: 10 mg Ondansetron HCl (Ondansetron Hcl/Pf 4 Mg/2 Ml Sdv) 4 mg IVP Q6H PRN PRN Reason: Nausea / Vomiting Pantoprazole Sodium (Pantoprazole Sodium 40 Mg Tablet.Dr) 40 mg PO QDAC2 [facility] Last Admin: 06/13/23 10:20 Dose: 40 mg Ranolazine (Ranolazine 500 Mg Tab.Er.12h) 1,000 mg PO BID [facility] Last Admin: 06/13/23 10:21 Dose: 1,000 mg Rosuvastatin Calcium (Rosuvastatin Calcium 10 Mg Tablet) 40 mg PO BEDTIME [facility] Discontinued Medications Sodium Chloride (Sodium Chloride) 1,000 mls @ 1,000 mls/hr IV BOLUS ONE Stop: 06/13/23 04:00 Last Admin: 06/13/23 03:57 Dose: Not Given Opioid Naive vs. Tolerant Does Patient Take Opioids?: No Is Patient Opioid Naive?: Yes What is Opioid Naive?: *Opioid Naive implies the patient is not already taking opioids or not chronically receiving opioids on a daily basis. *PRN dosing is not "usually" associated with tolerance. *Patients are at higher risk of over-sedation and aspiration. Is Patient Opioid Tolerant?: No What is Opioid Tolerant?: *Opioid Tolerance implies less than the expected response to an opioid. *Acquired tolerance is defined by the patient taking 60mg of oral morphine daily (or equianalgesic dose of another opioid) for 1 week or more. *Often associated with chronic pain. *May take more than usual dose to achieve desired pain control. Review of Systems Constitutional: Reports Weakness; Denies Fever or Fatigue Head: Reports Normocephalic and Atraumatic Cardiovascular: Denies Chest pain, Chest Pressure or Edema Respiratory: Denies Cough or Shortness of air Gastrointestinal: Denies Nausea, Vomiting, Diarrhea or Abdominal pain Genitourinary: Denies Dysuria or Frequency Musculoskeletal: Reports Other (+left elbow pain/bruising ) Dermatologic: Denies Rashes Neurological: Reports Weakness and Other (+frequent falls, recent head injury ) Physical examination Most Recent Vital Signs: Most Recent Vital Signs Temperature 97.8 F 06/13/23 10:35 Temperature Source Temporal Artery Scan 06/13/23 10:35 Temperature Source Infrared 06/13/23 00:44 Pulse Rate 59 L 06/13/23 10:38 Respiratory Rate 18 06/13/23 10:35 Blood Pressure 142/64 H 06/13/23 10:38 Blood Pressure Mean 86 06/13/23 10:35 Blood Pressure Left Arm 161/83 06/13/23 09:10 Blood Pressure Location Left Arm 06/13/23 10:38 Blood Pressure Position Supine 06/13/23 10:38 O2 Sat by Pulse Oximetry 96 06/13/23 10:35 Oxygen Delivery Method Room Air 06/13/23 11:00 Height 5 ft 5 in 06/13/23 09:10 Weight 140 lb 8 oz 06/13/23 09:10 Telemetry Number 9 12/23/12 07:00 Telemetry Heart Rate 66 08/14/19 07:00 Telemetry SPO2 93 12/06/15 07:00 Appearance: Positive Well-appearing, Well-nourished, No Apparent Distress and Alert and Oriented x3 Skin: Positive Cotter, Warm and Good Turgor; Negative Rashes HEENT: Positive Normocephalic, Atraumatic and Oral Mucous Moist Neck: Positive Supple and Midline Trachea Chest/Lungs: Positive Clear to Auscultation Bilaterally; Negative Rales, Rhonci or Wheezes Heart: Positive RRR and Pulses Normal GI/: Positive Soft, Nontender, Bowel Sounds Normal and No Distention Musculoskeletal: Positive Other (+left elbow with ecchymosis, skin tear left forearm. Contusion of posterior scalp, no laceration. ) Extremities: Positive Intact Peripheral Pulses; Negative Edema Neurological: Positive Motor intact, Cranial Nerves Intact, Alert, Oriented and Other (+generalized weakness) Psychiatric: Positive Oriented x4, Appropriate Mood and Appropriate Affect Labs This Visit Labs This Visit: Labs This Visit 06/13/23 06/13/23 06/13/23 01:28 02:05 03:12 WBC 8.51 RBC 3.78 L Hgb 12.5 Hct 38.4 MCV 101.6 H MCH 33.1 H MCHC 32.6 RDW Coeff of Christopher 12.8 Plt Count 187 Immature Gran % (Auto) 0.1 Neut % (Auto) 68.8 Lymph % (Auto) 22.9 Weston % (Auto) 7.5 Eos % (Auto) 0.5 Baso % (Auto) 0.2 Neut # (Auto) 5.9 Lymph # (Auto) 2.0 Weston # (Auto) 0.6 Eos # (Auto) 0.0 Baso # (Auto) 0.0 Immature Gran # (Auto) 0.0 Sodium 136.6 Potassium 5.35 H Chloride 107.4 H Carbon Dioxide 25.7 Anion Gap 8.85 BUN 28.3 H Creatinine 1.49 H Estimated GFR (MDRD) 33.00 BUN/Creatinine Ratio 18.99 Glucose 129.9 H Calcium 9.17 Magnesium Total Bilirubin 0.87 AST 40.8 H ALT 25.1 Alkaline Phosphatase 49.7 L Troponin I < 0.012 NT-Pro-B Natriuret Pep 452 H Total Protein 6.67 Albumin 3.93 Globulin 2.74 Albumin/Globulin Ratio 1.43 Urine Color Yellow Urine Clarity Clear Urine pH 6.0 Ur Specific Elkins >=1.030 Urine Protein 2+ H Urine Glucose (UA) Negative Urine Ketones Negative Urine Blood Negative Urine Nitrite Negative Urine Bilirubin Negative Urine Urobilinogen 1.0 H Ur Leukocyte Esterase Negative Urine Microscopic RBC 0-2 Ur Squamous Epith Cells 0-2 Urine Opiates Screen Negative Ur Oxycodone Screen Negative Urine Methadone Screen Negative Ur Barbiturates Screen Negative U Tricyclic Antidepress Positive H Ur Phencyclidine Scrn Negative Ur Amphetamine Screen Negative U Methamphetamines Scrn Negative U Benzodiazepines Scrn Negative Urine Cocaine Screen Negative U Cannabinoids Screen Negative SARS CoV-2 RNA Rapid ADRIANA 06/13/23 06/13/23 06/13/23 06:45 07:34 07:42 WBC RBC Hgb Hct MCV MCH MCHC RDW Coeff of Christopher Plt Count Immature Gran % (Auto) Neut % (Auto) Lymph % (Auto) Weston % (Auto) Eos % (Auto) Baso % (Auto) Neut # (Auto) Lymph # (Auto) Weston # (Auto) Eos # (Auto) Baso # (Auto) Immature Gran # (Auto) Sodium Potassium 4.39 Chloride Carbon Dioxide Anion Gap BUN Creatinine Estimated GFR (MDRD) BUN/Creatinine Ratio Glucose Calcium Magnesium 2.12 Total Bilirubin AST ALT Alkaline Phosphatase Troponin I NT-Pro-B Natriuret Pep Total Protein Albumin Globulin Albumin/Globulin Ratio Urine Color Urine Clarity Urine pH Ur Specific Elkins Urine Protein Urine Glucose (UA) Urine Ketones Urine Blood Urine Nitrite Urine Bilirubin Urine Urobilinogen Ur Leukocyte Esterase Urine Microscopic RBC Ur Squamous Epith Cells Urine Opiates Screen Ur Oxycodone Screen Urine Methadone Screen Ur Barbiturates Screen U Tricyclic Antidepress Ur Phencyclidine Scrn Ur Amphetamine Screen U Methamphetamines Scrn U Benzodiazepines Scrn Urine Cocaine Screen U Cannabinoids Screen SARS CoV-2 RNA Rapid ADRIANA Negative Imaging Imaging: EXAM: CT HEAD WITHOUT CONTRAST TECHNIQUE: Noncontrast CT of the head with multiple reformats. HISTORY: Fall. Hit back of head. COMPARISON: None. FINDINGS: No evidence of acute infarction, hemorrhage, or mass. Mild brain volume loss. Mild chronic microvascular changes of the white matter. Atherosclerotic calcifications of the carotid siphons. No brain herniation. Patent basilar cisterns. Ventricles are proportional to brain volume. No acute osseous abnormality. Hyperostosis frontalis interna. Bilateral lens replacements of the globes. Soft tissue contusion in the left parietal scalp. IMPRESSION: No acute intracranial abnormality. Left parietal scalp contusion. Chronic and incidental findings as above. EXAM: CHEST CT WITHOUT CONTRAST HISTORY: Fall, left rib pain. TECHNIQUE: CT acquisition of the chest from the thoracic inlet to the upper abdomen without IV contrast administration. COMPARISON: CT chest 10/25/2022. FINDINGS: Lung Parenchyma, Pleura, and Airways: Central airways are patent. Stable band- like scarring and mild bronchiectasis in the middle lobe. No acute airspace disease, laceration, or contusion. No pneumothorax. No pleural effusion. Thoracic Inlet, Mediastinum, and Lakia: Thyroid gland is normal. No hematoma. Heart, Vessels, and Pericardium: Heavy coronary calcifications. Aortic valve calcifications. Scattered atherosclerotic calcifications of the aorta. No evidence of aortic injury. No cardiomegaly. Trace pericardial fluid. Bones and Soft Tissues: Bones appear demineralized. No acute fracture identified. Chronic-appearing left seventh rib fracture. No soft tissue hematoma. Upper Abdomen: Unremarkable. IMPRESSION: No acute chest injury demonstrated. Atherosclerosis with heavy coronary calcifications. EXAM: TWO VIEWS LEFT ELBOW. HISTORY: Fall, left elbow injury. COMPARISON: None. FINDINGS / IMPRESSION: Soft tissue swelling around the elbow. No acute fracture. No dislocation. No joint effusion. Bones appear demineralized. EXAM: THREE VIEWS LEFT SHOULDER. HISTORY: Fall, left shoulder pain. COMPARISON: Radiographs 06/06/2022. FINDINGS / IMPRESSION: No acute fracture or dislocation. Mild degenerative change of the acromioclavicular joint. Osseous demineralization. Review Statement Review Statement: I have independently reviewed and interpreted the labs/EKGs/imaging that were ordered by the ER provider. I have reviewed all outside records that are available currently in our EMR including imaging/notes/labs from previous visits. Plan Plan: 1. Orthostatic hypotension - Dropped 50 points systolic. Recently increased ranexa and added imdur. Called Dr. Waddell office and left message with nurse to discuss possible contributing medications and get recs from Dr. Waddell. In meantime, hydrate gently with LR at 75 ml/hr and add brigida hose. Fall precautions. PT/OT. 2. CAD with recent cardiac cath - Plan for PCI in next couple weeks. Cont asa and plavix. 3. AIDAN, stage I - Gently hydrate 4. Hypertension - Cont home meds 5. GERD - Cont home meds 6. Hyperlipidemia - Cont home meds 7. Frequent falls - 3 falls this week, likely due to orthostasis. PT/OT DVT Prophylaxis: Lovenox Time Spent: Greater than 80 minutes spent with patient, 50% of the time spent with this patient was devoted to counseling and coordination of care. [facility] minutes spent discussing advance care planning. DNR Disposition: Patient is not safe at home with recent falls, living alone, and on plavix/asa. She would benefit from acute rehab following hospitalization. Admit to: Inpatient Discussed Plan of Care with Dr. Palmer Arroyo. Medications Medication Orders: Medications Ordered Category Date Time Status Acetaminophen [Tylenol] Meds 06/13/23 09:14 Active 650 mg PO Q4H PRN Amitriptyline HCl [Elavil] Meds 06/13/23 21:00 Active 25 mg PO BEDTIME Aspirin [Aspirin EC] Meds 06/13/23 10:00 Active 81 mg PO DAILYWM2 Clopidogrel Bisulfate [Plavix] Meds 06/13/23 10:00 Active 75 mg PO DAILY Diltiazem HCl [Cardizem Cd] Meds 06/13/23 09:45 Active 240 mg PO DAILY Ezetimibe [Zetia] Meds 06/13/23 10:00 Active 10 mg PO DAILY Famotidine [Pepcid] Meds 06/13/23 10:00 Active 10 mg PO BIDAC2 Isosorbide Mononitrate [Imdur] Meds 06/13/23 10:00 Active 30 mg PO DAILY Lisinopril [Zestril] Meds 06/13/23 09:50 Active 20 mg PO BID Montelukast Sodium [Singulair] Meds 06/13/23 09:50 Active 10 mg PO DAILY Ondansetron HCl/Pf [Zofran 4 mg/2 ml] Meds 06/13/23 09:14 Active 4 mg IVP Q6H PRN Pantoprazole Sodium [Protonix] Meds 06/13/23 10:00 Active 40 mg PO QDAC2 Ranolazine [Ranexa] Meds 06/13/23 10:00 Active 1,000 mg PO BID Ringers Lactated Solution [Lactated Ringers] 1,000 ml Meds 06/13/23 11:00 Active IV 75 mls/hr Rosuvastatin Calcium [Crestor] Meds 06/13/23 21:00 Active 40 mg PO BEDTIME Sodium Chloride 0.9% [Sodium Chloride] 1,000 ml Meds 06/13/23 03:33 Active IV 50 mls/hr
--- NOTE | 2023-06-13 16:06 | RS.PTINEVL ---
Subjective Patient information Date of Evaluation: 06/13/23 Date of Arrival on Unit: 06/13/23 Admitted From:: Home Diagnosis: recurrent falls, CKD, dehydration, orthostatic hypotension Usual Living Arrangement: Alone Living Arrangement Comments: pt lives alone in apt. Sons are supportive and check on her everyday Home Environment: Apartment and Level/No stairs Medical History: Hypertension and Arthritis Medical History Comments:: anxiety, renal failure, CAD, LATEX ALLERGY?: No Surgical History Comments:: bladder sx. Recent heart cath on 06/05/23 demonstrated severe multivessel CAD Medications: see chart Subjective Information/ Patient Comments:: pt states she fell 2x a home day prior to admit. She states that her legs just gave out and she was dizzy. pt reports that she is scheduled to have stents placed in her heart in approx. 2 weeks. Level of function Prior to this admission, the patient could do the following:: Independent Selfcare, Independent ADL's, Independent Ambulation, Perform Manager Call/Cooking and Participated in Social Activities Outside home Current Level of Function: Partially Dependent Current Equipment Used at Home: none Pain Assessement Location Left Elbow: Description: Tightness and Aching Pain Behavior: Rubbing Site Pain Aggravating Factors: Changing Position Effects of Pain: pt did not rate pain. Interventions Objective Patient Orientation: Person, Place, Time and Situation Current Interventions: IV's and Telemetry Observation: pt with bruising to L elbow and arm, L mid thoracic region, bump on back of her head. Range of Motion ROM Right Upper Extremity AROM: WFL's Left Upper Extremity AROM: WFL's Right Lower Extremity AROM: WFL's Left Lower Extremity AROM: WFL's Muscle Strength Muscle Strength Right Upper Extremity: Mild Weakness (grossly 4/5 ) Left Upper Extremity: Mild Weakness (grossly 4/5) Right Lower Extremity: Mild Weakness (R hip flex 4/5, knee flex/ext 4+/5, ankle DF/PF 4+/5) Left Lower Extremity: Mild Weakness (R hip flex 4/5, knee flex/ext 4+/5, ankle DF/PF 4+/5) Sensation Sensation Right Upper Extremity: Intact/Normal Left Upper Extremity: Intact/Normal Right Lower Extremity: Impaired Left Lower Extremity: Impaired Comments: neuropathy BLE Palpation Palpation Findings: Tenderness (L thoracic area ) Balance Sitting Balance and Reactions Static Sitting Balance: Good Dynamic Sitting Balance: Good (good-) Standing Balance and Reactions Static Standing Balance: Poor Dynamic Standing Balance: Poor Functional Mobility Bed Mobility Rolling R/L: Independent (with bedrails) Supine to Sit: CGA Sit to Supine: CGA Transfers Sit to Stand: CGA Stand to Sit: CGA Safety Awareness Safety Awareness: Poor EVELYN INDEX SCORE: n/a Ambulation Ambulation Assistive Device Used: Rolling Walker Orthotic/Prosthetic Device: No Distance: 35ft Assistance needed with Ambulation: CGA Quality of Ambulation: pt amb with flexed posture, decreased step length. pt deviates from path and at one point placed rwx on her toe and LOB. Gait Deviations: Forward posture, Short stride and Deviates from path Factors Affecting Ambulation: Decreased Balance and Weakness Treatment time Units charged Gait trainin Time with patient Length of Evaluation: 18 Total treatment time: 31 Patient Education Education Patient Education: Activity Modification and Education of Plan of Care Teaching Recipient: Patient Teaching Methods: Discussion and Demonstration Assessment Assessment Problem List:: Decreased level of function, Requires training/education, Decreased safety/Risk of falls and Weakness Rehab Potential: Fair Further Therapy Indicated?: Yes Candidate for Swing Bed for Therapy Services?: pt may be a candidate for swing bed will need to reassess closer to [place]. pt may be too high level. Evaluation Complexity: HISTORY: Medium, EXAM OF BODY SYSTEMS: Medium, CLINICAL PRESENTATION: Medium and CLINICAL DECISION MAKING: Medium Patient's Goal(s): Return home and be more steady. Short Term Goals GOAL #1: pt demonstrate rolling and scooting in bed independently. Goal to be met by: 06/15/23 GOAL #2: Transfer sup to/from sit independently. Goal to be met by: 06/15/23 GOAL #3: Transfer sit to/from stand SBA Goal to be met by: 06/15/23 GOAL #4: pt amb with rwx 100ft with CGA no LOB Goal to be met by: 06/15/23 GOAL #5: Improve BLE strength 4+ to 5/5 Goal to be met by: 06/15/23 Fdc Goals GOAL #1: pt transfer sit to/from stand independently. Goal to be met by: 06/17/23 GOAL #2: pt amb functional household distances with rwx with SBA no LOB Goal to be met by: 06/17/23 GOAL #3: pt demonstrate fair dyn stand balance Goal to be met by: 06/17/23 Plan Plan of Care: Therapeutic EX, Neuromuscular Re-Educ and Therapeutic Activity Other:: gait training Frequency of Treatment: 1-2 X day, as tolerated Duration of Treatment: 4 days Anticipated Discharge Destination: undetermined Treatment Diagnosis (ICD 10 Codes): impaired balance R 26.81 weakness M62.81 gait difficulty R 26.2 Has the Physician been added for Co-signature?: Yes
--- NOTE | 2023-06-13 16:11 | RS.OTINEVL ---
Subjective Patient information Date of Evaluation: 06/13/23 Date of Arrival on Unit: 06/13/23 Admitted From:: Emergency Dept Diagnosis: CKD, Dehydration PRECAUTIONS: Has had 3 falls this week. Usual Living Arrangement: Alone Living Arrangement Comments: pt lives alone in apt. Sons are supportive and check on her everyday Home Environment: Apartment and Level/No stairs Medical History: Hypertension and Arthritis Medical History Comments:: anxiety, renal failure, CAD, LATEX ALLERGY?: No Surgical History Comments:: bladder sx. 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." Level of function Prior to this admission, the patient could do the following:: Independent Selfcare, Independent ADL's, Independent Ambulation, Perform Coke Drawer Hand/Cooking and Participated in Social Activities Outside home Current Level of Function: Partially Dependent Current Equipment Used at Home: none Pain Assessment Pain Pain Score: 3 Side: left Pain Location Body Site: Elbow Pain Aggravating Factors: Changing Position Pain Alleviating Factors: Medication, Sitting and Lying Supine Interventions Objective Patient Orientation: Person and Situation Current Interventions: IV's Observation: Pt has bruising on the left elbow, on her left back ribs. Pt has a knot on her head. Pt is very pleasant and talkative. Pt is not steady on her feet. Pt is not familiar with using a RW. Pt CGA to stand and ambulate with RW. Pt has WFL of AROM of BUE. Interventions ROM Right Upper Extremity AROM: WFL's Left Upper Extremity AROM: WFL's Strength Right Upper Extremity: Mild Weakness Left Upper Extremity: Mild Weakness Sensation Right Upper Extremity: Intact/Normal Left Upper Extremity: Intact/Normal Balance Sitting Balance Static Sitting Balance: Fair Dynamic Sitting Balance: Fair Standing Balance Static Standing Balance: Poor Dynamic Standing Balance: Poor Comments Balance Assessment Comments: Pt is not steady on her feet. ADL Skills Self Feeding Self Feeding: Independent Grooming Grooming: Independent Grooming Set-up: Sitting Bathing Bathing UE: Set Up Only Bathing LE: CGA and Verbal Cues Bathing Set-up: Shower Comments:: Pt needs to sit during shower. Dressing Dressing UE: Set Up Only Dressing LE: CGA Toilet Management Toilet Hygiene: Independent Toilet Clothing Management: CGA Functional Mobility Bed Mobility Rolling R/L: Independent Scooting: Independent Supine to Sit: Independent Sit to Supine: Independent Transfers Sit to Stand: CGA Stand to Sit: CGA Stand Pivot Transfers: Min Assist Comments:: Pt misplaced walker while trying to turn in a stand pivot transfer. Ambulation Weight Bearing Status: FWB Assistive Device Used: Rolling Walker Assistance needed with Ambulation: CGA Safety Awareness Safety Awareness: Fair EVELYN INDEX SCORE: . Additional Treatment Performed Time with patient Length of Evaluation: 21 Total treatment time: 22 Activities Patient Interests:: Watching Television and Visiting/Socializing Patient Education Patient Education: Body/Joint mechanics, Home Safety and Education of Plan of Care Teaching Recipient: Patient Teaching Methods: Discussion and Demonstration Assessment Problem List:: Requires training/education, Decreased safety/Risk of falls and Weakness Rehab Potential: Good Further Therapy Indicated?: Yes Evaluation Complexity: HISTORY: Medium, EXAM OF BODY SYSTEMS: Medium and CLINICAL DECISION MAKING: Medium Patient's Goal(s): To be able to walk and not get dizzy and go back to her apartment. Short Term Goals Goals GOAL 1: Pt to Increase BUE strength to 4+/5. Goal to be met by: 06/18/23 GOAL 2: Pt to increase safety of toilet transfers to SUP with RW. Goal to be met by: 06/18/23 GOAL 3: Pt to safely dress her lower extremity SUP. Goal to be met by: 06/18/23 GOAL 4: Pt to stand at sink and complete 1 hand grooming tasks. Goal to be met by: 06/18/23 GOAL 5: Pt to be I with taking items out of the refrigerator in standing. Goal to be met by: 06/18/23 Long-Term Goals GOAL 1: Pt to be I with ADLs. Goal to be met by: 06/19/23 GOAL 2: Pt to increase BUE strength to 5/5. Goal to be met by: 06/19/23 Plan Plan of Care: Therapeutic EX, Therapeutic Activity and Self-Care/Home Management Frequency of Treatment: 1-2 X day, as tolerated Duration of Treatment: 1 Week Anticipated Discharge Destination: Home Treatment Diagnosis (ICD 10 Codes): Weakness R53.1, Need for assistance with personal care Z74.1 Has the Physician been added for Co-signature?: Yes
--- NOTE | 2023-06-13 16:46 | PCM.PROG ---
Spoke with Dr. Waddell regarding patient's orthostasis and recent med changes. Will decrease ranexa to 500 mg bid due to her CrCl. He states the imdur could be contributing. Will hydrate overnight and if no improvement with just fluids/brigida hose in her orthostasis, we will discontinue imdur. Will send him a d/c summary when available with most recent labs so he will have most recent renal function to compare to for upcoming cath.
[2023-06-13] MEDS: CRESTOR PO SCH (20:33)
[2023-06-13] MEDS: ELAVIL PO SCH (20:34)
[2023-06-14 04:30] LABS: BASOPHILS % (AUTO) 0.3 % (0.0-3.0); EOSINOPHILS # (AUTO) 0.1 K/ul (0.0-0.7); EOSINOPHILS % (AUTO) 1.4 % (0.0-7.0); HEMOGLOBIN 10.6 g/dl (12.0-16.0); IMMATURE GRANULOCYTE % (AUTO) 0.1 % (0.0-5.0); LYMPHOCYTES # (AUTO) 2.8 K/uL (0.60-3.4); LYMPHOCYTES % (AUTO) 35.8 (10.0-50.0); MEAN CORPUSCULAR HEMOGLOBIN 33.4 pg (27.0-31.0); MEAN CORPUSCULAR HGB CONC 32.8 (31.8-35.4); MEAN CORPUSCULAR VOLUME 101.9 fl (81.0-99.0); MONOCYTES # (AUTO) 0.8 K/uL (0.4-2.0); MONOCYTES % (AUTO) 10.5 (0-10); NEUTROPHILS % (AUTO) 51.9 % (42.2-75.2); PLATELET COUNT 155 10^3/uL (140-440); RED BLOOD COUNT 3.17 10^6/ul (4.20-5.40); WHITE BLOOD COUNT 7.72 K/ul (4.6-10.2)
[2023-06-14 04:36] LABS: HEMATOCRIT 32.3 % (37.0-47.0)
[2023-06-14 04:40] LABS: ALANINE AMINOTRANSFERASE 22.6 U/L (0-35); ALBUMIN 2.94 g/dL (3.5-5.0); ALKALINE PHOSPHATASE 36.7 U/L (53-141); ASPARTATE AMINO TRANSFERASE 39.6 U/L (14-36); BILIRUBIN,TOTAL 0.7 mg/dL (0.2-1.3); BLOOD UREA NITROGEN 20.9 mg/dL (7-17); CALCIUM 8.05 mg/dL (8.4-10.2); CARBON DIOXIDE 22.8 mmol/L (22-30.0); CHLORIDE 106.5 mmol/L (98-107); CREATININE 1.13 mg/dL (0.60-1.30); GLUCOSE 94.2 mg/dL (74-106); POTASSIUM 4.91 mmol/L (3.5-5.1); TOTAL PROTEIN 5.23 g/dL (6.3-8.2)
[2023-06-14] MEDS: LOVENOX SUBCUT SCH (08:22)
--- NOTE | 2023-06-14 09:11 | PCM.PROG ---
Date/Time Seen Date Seen by Provider: 06/14/23 Time Seen by Provider: 08:20 Provider Provider: CAROLYN HAYWARD PA-C, [facility] Chief Complaint Chief Complaint: RECURRING FALLS; ANTIPLAT THERAPY; CKD; DEHYD Subjective Subjective: Patient states she's feeling ok today. Gets dizzy and lightheaded with standing, states it worsens as she tries to walk. Still orthostatic today but it has improved. Objective Appearance: Positive Well-appearing, Well-nourished, No Apparent Distress and Al ert and Oriented x3 Chest/Lungs: Positive Clear to Auscultation Bilaterally; Negative Rales, Rhonci or Wheezes Heart: Positive RRR GI/: Positive Soft, Nontender, Bowel Sounds Normal and No Distention Neurological: Positive Cranial Nerves Intact, Alert, Oriented and Other (+generalized weakness ) Vital Signs Vital Signs: Vital Signs: Last 24 Hours 06/13/23 09:10 06/13/23 09:10 06/13/23 10:00 Temperature 97.7 F Temperature Source Temporal Artery Scan Pulse Rate 68 Pulse Rate [Apical] 84 Respiratory Rate 20 16 Blood Pressure Blood Pressure Mean Blood Pressure Left Arm 161/83 Blood Pressure Location Blood Pressure Position Sitting O2 Sat by Pulse Oximetry 97 Oxygen Delivery Method Room Air Room Air Room Air Height 5 ft 5 in Weight 140 lb 8 oz Telemetry Type Telemetry Monitoring Telemetry Heart Rate EKG DE Interval EKG QRS Interval Telemetry Strip Reading 06/13/23 10:35 06/13/23 10:35 06/13/23 10:37 Temperature 97.8 F Temperature Source Temporal Artery Scan Pulse Rate 86 58 L 58 L Pulse Rate [Apical] Respiratory Rate 18 Blood Pressure 91/53 L 137/61 137/61 Blood Pressure Mean 86 Blood Pressure Left Arm Blood Pressure Location Left Arm Left Arm Left Arm Blood Pressure Position Standing Sitting Sitting O2 Sat by Pulse Oximetry 96 Oxygen Delivery Method Room Air Height Weight Telemetry Type Telemetry Monitoring Telemetry Heart Rate EKG DE Interval EKG QRS Interval Telemetry Strip Reading 06/13/23 10:38 06/13/23 11:00 06/13/23 12:00 Temperature Temperature Source Pulse Rate 59 L Pulse Rate [Apical] Respiratory Rate Blood Pressure 142/64 H Blood Pressure Mean Blood Pressure Left Arm Blood Pressure Location Left Arm Blood Pressure Position Supine O2 Sat by Pulse Oximetry Oxygen Delivery Method Room Air Room Air Height Weight Telemetry Type Telemetry Monitoring Telemetry Heart Rate EKG DE Interval EKG QRS Interval Telemetry Strip Reading 06/13/23 12:00 06/13/23 13:00 06/13/23 13:00 Temperature Temperature Source Pulse Rate Pulse Rate [Apical] Respiratory Rate Blood Pressure Blood Pressure Mean Blood Pressure Left Arm Blood Pressure Location Blood Pressure Position O2 Sat by Pulse Oximetry Oxygen Delivery Method Room Air Room Air Height Weight Telemetry Type Bedside Monitor Telemetry Monitoring Started Telemetry Heart Rate 55 L EKG DE Interval 0.18 EKG QRS Interval 0.09 Telemetry Strip Reading SINUS AN 06/13/23 13:53 06/13/23 13:53 06/13/23 14:58 Temperature 98.7 F Temperature Source Temporal Artery Scan Pulse Rate 60 Pulse Rate [Apical] Respiratory Rate 16 Blood Pressure 125/67 Blood Pressure Mean 86 Blood Pressure Left Arm Blood Pressure Location Left Arm Blood Pressure Position O2 Sat by Pulse Oximetry 96 Oxygen Delivery Method Room Air Room Air Room Air Height Weight Telemetry Type Telemetry Monitoring Telemetry Heart Rate EKG DE Interval EKG QRS Interval Telemetry Strip Reading 06/13/23 16:00 06/13/23 16:43 06/13/23 17:37 Temperature 97.6 F Temperature Source Temporal Artery Scan Pulse Rate 57 L Pulse Rate [Apical] Respiratory Rate 16 Blood Pressure 139/83 Blood Pressure Mean 101 Blood Pressure Left Arm Blood Pressure Location Left Arm Blood Pressure Position Sitting O2 Sat by Pulse Oximetry 95 Oxygen Delivery Method Room Air Room Air Room Air Height Weight Telemetry Type Telemetry Monitoring Telemetry Heart Rate EKG DE Interval EKG QRS Interval Telemetry Strip Reading 06/13/23 18:00 06/13/23 19:00 06/13/23 19:00 Temperature Temperature Source Pulse Rate Pulse Rate [Apical] Respiratory Rate Blood Pressure Blood Pressure Mean Blood Pressure Left Arm Blood Pressure Location Blood Pressure Position O2 Sat by Pulse Oximetry Oxygen Delivery Method Room Air Room Air Height Weight Telemetry Type Remote Telemetry Telemetry Monitoring Continues Telemetry Heart Rate 59 L EKG DE Interval 0.16 EKG QRS Interval 0.08 Telemetry Strip Reading sb 06/13/23 20:00 06/13/23 20:00 06/13/23 21:00 Temperature Temperature Source Pulse Rate Pulse Rate [Apical] Respiratory Rate Blood Pressure Blood Pressure Mean Blood Pressure Left Arm Blood Pressure Location Blood Pressure Position O2 Sat by Pulse Oximetry Oxygen Delivery Method Room Air Room Air Room Air Height Weight Telemetry Type Telemetry Monitoring Telemetry Heart Rate EKG DE Interval EKG QRS Interval Telemetry Strip Reading 06/13/23 22:00 06/13/23 22:00 06/13/23 23:00 Temperature 97.0 F L Temperature Source Temporal Artery Scan Pulse Rate 56 L Pulse Rate [Apical] Respiratory Rate 20 Blood Pressure 143/66 H Blood Pressure Mean 91 Blood Pressure Left Arm Blood Pressure Location Left Arm Blood Pressure Position Supine O2 Sat by Pulse Oximetry 96 Oxygen Delivery Method Room Air Room Air Room Air Height Weight Telemetry Type Telemetry Monitoring Telemetry Heart Rate EKG DE Interval EKG QRS Interval Telemetry Strip Reading 06/14/23 00:46 06/14/23 02:00 06/14/23 05:12 Temperature 97.9 F 97.4 F L Temperature Source Temporal Artery Scan Temporal Artery Scan Pulse Rate 51 L 40 L Pulse Rate [Apical] Respiratory Rate 16 16 Blood Pressure 145/76 H 130/60 Blood Pressure Mean 99 83 Blood Pressure Left Arm Blood Pressure Location Left Arm Left Arm Blood Pressure Position Supine Supine O2 Sat by Pulse Oximetry 94 L 94 L Oxygen Delivery Method Room Air Room Air Height Weight Telemetry Type Remote Telemetry Telemetry Monitoring Continues Telemetry Heart Rate 55 L EKG DE Interval 0.15 EKG QRS Interval 0.09 Telemetry Strip Reading SB 06/14/23 06:48 06/14/23 07:28 06/14/23 08:29 Temperature Temperature Source Pulse Rate 46 L Pulse Rate [Apical] 56 L Respiratory Rate 16 Blood Pressure 123/66 Blood Pressure Mean Blood Pressure Left Arm Blood Pressure Location Left Arm Blood Pressure Position Supine O2 Sat by Pulse Oximetry Oxygen Delivery Method Room Air Height Weight Telemetry Type Remote Telemetry Telemetry Monitoring Continues Telemetry Heart Rate 38 L EKG DE Interval 0.18 EKG QRS Interval 0.08 Telemetry Strip Reading SB 06/14/23 08:30 06/14/23 08:30 Temperature Temperature Source Pulse Rate 53 L 57 L Pulse Rate [Apical] Respiratory Rate Blood Pressure 92/52 L 102/51 L Blood Pressure Mean Blood Pressure Left Arm Blood Pressure Location Left Arm Left Arm Blood Pressure Position Sitting Standing O2 Sat by Pulse Oximetry Oxygen Delivery Method Height Weight Telemetry Type Telemetry Monitoring Telemetry Heart Rate EKG DE Interval EKG QRS Interval Telemetry Strip Reading Lab Results Lab Results: Lab Results: Last 24 Hours 06/14/23 06/13/23 04:22 07:34 WBC 7.72 RBC 3.17 L Hgb 10.6 L Hct 32.3 L D MCV 101.9 H MCH 33.4 H MCHC 32.8 RDW Coeff of Christopher 13.0 Plt Count 155 Immature Gran % (Auto) 0.1 Neut % (Auto) 51.9 Lymph % (Auto) 35.8 [place] % (Auto) 10.5 H Eos % (Auto) 1.4 Baso % (Auto) 0.3 Neut # (Auto) 4.0 Lymph # (Auto) 2.8 [place] # (Auto) 0.8 Eos # (Auto) 0.1 Baso # (Auto) 0.0 Immature Gran # (Auto) 0.0 Sodium 134.0 L Potassium 4.91 Chloride 106.5 Carbon Dioxide 22.8 Anion Gap 9.61 BUN 20.9 H Creatinine 1.13 Estimated GFR (MDRD) 46.00 BUN/Creatinine Ratio 18.49 Glucose 94.2 Calcium 8.05 L Magnesium 2.12 Total Bilirubin 0.70 AST 39.6 H ALT 22.6 Alkaline Phosphatase 36.7 L Total Protein 5.23 L Albumin 2.94 L Globulin 2.29 Albumin/Globulin Ratio 1.28 Additional Comments Additional Comments: I have independently reviewed and interpreted the labs/EKGs/imaging ordered during this hospital stay. I have reviewed outside records that are available in our EMR that pertain to medical stay including imaging/notes/labs from previous visits. Active Medications Active Medications: Medications Generic Name Dose Route Start Last Admin Trade Name Freq PRN Reason Stop Dose Admin Acetaminophen 650 mg 06/13/23 09:14 06/13/23 11:11 Acetaminophen 325 Mg Tablet PO 650 mg Q4H PRN Administration Mild Pain Amitriptyline HCl 25 mg 06/13/23 21:00 06/13/23 20:34 Amitriptyline Hcl 25 Mg Tablet PO 25 mg BEDTIME CYNDY Administration Aspirin 81 mg 06/13/23 10:00 06/14/23 07:24 Aspirin 81 Mg Tablet. PO 81 mg DAILYWM2 CYNDY Administration Clopidogrel Bisulfate 75 mg 06/13/23 10:00 06/14/23 08:20 Clopidogrel Bisulfate 75 Mg Tablet PO 75 mg DAILY CYNDY Administration Diltiazem HCl 240 mg 06/13/23 09:45 06/13/23 10:19 Diltiazem Hcl 120 Mg Cap.Er.24h PO 240 mg DAILY CYNDY Administration Ezetimibe 10 mg 06/13/23 10:00 06/14/23 08:21 Ezetimibe 10 Mg Tablet PO 10 mg DAILY CYNDY Administration Enoxaparin Sodium 30 mg 06/14/23 09:00 06/14/23 08:22 Enoxaparin Sodium 30 Mg/0.3 Ml Syr SUBCUT 30 mg DAILY CYNDY Administration Famotidine 10 mg 06/13/23 10:00 06/14/23 05:16 Famotidine 20 Mg Tablet PO 10 mg BIDAC2 CYNDY Administration Lactated Ringer's 1,000 mls @ 75 mls/hr 06/13/23 11:00 06/13/23 23:46 Lactated Ringers IV 75 mls/hr .[id number] CYNDY Administration Isosorbide Mononitrate 30 mg 06/13/23 10:00 06/13/23 10:19 Isosorbide Mononitrate 30 Mg Tab.Er.24h PO 30 mg DAILY CYNDY Administration Lisinopril 20 mg 06/13/23 09:50 06/14/23 08:35 Lisinopril 10 Mg Tablet PO 20 mg BID CYNDY Administration Montelukast Sodium 10 mg 06/13/23 09:50 06/14/23 08:20 Montelukast Sodium 10 Mg Tablet PO 10 mg DAILY CYNDY Administration Ondansetron HCl 4 mg 06/13/23 09:14 Ondansetron Hcl/Pf 4 Mg/2 Ml Sdv IVP Q6H PRN Nausea / Vomiting Pantoprazole Sodium 40 mg 06/13/23 10:00 06/14/23 05:16 Pantoprazole Sodium 40 Mg Tablet.Dr PO 40 mg QDAC2 CYNDY Administration Ranolazine 500 mg 06/13/23 21:00 06/14/23 08:21 Ranolazine 500 Mg Tab.Er.12h PO 500 mg BID CYNDY Administration Rosuvastatin Calcium 40 mg 06/13/23 21:00 06/13/23 20:33 Rosuvastatin Calcium 10 Mg Tablet PO 40 mg BEDTIME CYNDY Administration Plan Plan: 1. Orthostatic hypotension - Improved, but still dropping >20 points systolic. Per Thomas can hold imdur as this may be contributing. Cont fluids. Ranexa dose decreased due to CrCl. Cont brigida hose. Fall precautions. PT/OT. 2. CAD with recent cardiac cath - Plan for PCI in next couple weeks. Cont asa and plavix. 3. Bradycardia - Could be contributing to symptoms/falls. HR dipped into 30s, has been consistently 40s. Hold cardizem today, may restart at lower dose tomorrow. 4. AIDAN, stage I - Improved. Gently hydrate 5. Hypertension - Cont home meds 6. GERD - Cont home meds 7. Hyperlipidemia - Cont home meds 8. Frequent falls - 3 falls this week, likely due to orthostasis. PT/OT DVT: Lovenox Dispo: Will require another 1-2 midnights Updated patient's granddaughter (whom is a [employer]OR) on plan of care, who will update her father and uncle/POA. Review Statement Review Statement: I have personally discussed and reviewed the patient's visit/currently labs/imaging/decision making with Dr. Arroyo, my supervising attending. Greater that 50 minutes spent with patient, 50% of the time spent with this patient was devoted to counseling and coordination of care.
--- NOTE | 2023-06-14 11:11 | CT ---
EXAM: CT HEAD WITHOUT CONTRAST. HISTORY: Altered mental status. COMPARISON: 1 day prior. TECHNIQUE: Multiple axial images of the brain were obtained from the skull base through the vertex w ithout intravenous contrast. Multiplanar reformats were provided. FINDINGS: There is no intracranial hemorrhage or extraaxial collection. The ferreira-white differentiat ion is maintained without evidence for acute large vascular territory infarction. There are areas of periventricular and subcortical white matter low attenuation. The cortical sulci and cerebral ventr icles are symmetrically enlarged. The basal cisterns are well visualized. There is no hydrocephalus , mass effect, or midline shift. The paranasal sinuses and mastoid air cells are clear. The calvari um is intact. Hyperostosis frontalis interna again noted. Since the prior study, there has been no significant interval change. IMPRESSION: 1. No acute intracranial abnormality. 2. Chronic small vessel ischemic changes and atrophy. All CT scans are performed using dose optimization techniques as appropriate to the performed exam an d include at least one of the following: Automated exposure control, adjustment of the mA and/or kV according t o size, and the use of iterative reconstruction technique.
[2023-06-15 05:49] LABS: BASOPHILS % (AUTO) 0.2 % (0.0-3.0); EOSINOPHILS # (AUTO) 0.2 K/ul (0.0-0.7); EOSINOPHILS % (AUTO) 2.5 % (0.0-7.0); HEMATOCRIT 35.7 % (37.0-47.0); HEMOGLOBIN 11.6 g/dl (12.0-16.0); IMMATURE GRANULOCYTE % (AUTO) 0.3 % (0.0-5.0); LYMPHOCYTES # (AUTO) 2.2 K/uL (0.60-3.4); MEAN CORPUSCULAR HEMOGLOBIN 33.1 pg (27.0-31.0); MEAN CORPUSCULAR HGB CONC 32.5 (31.8-35.4); MONOCYTES # (AUTO) 0.6 K/uL (0.4-2.0); MONOCYTES % (AUTO) 9.9 (0-10); NEUTROPHILS # (AUTO) 3.1 K/ul (2.0-6.9); NEUTROPHILS % (AUTO) 51.1 % (42.2-75.2); PLATELET COUNT 150 10^3/uL (140-440); RDW COEFFICIENT OF VARIATION 13.1 % (11.6-14.8); WHITE BLOOD COUNT 6.06 K/ul (4.6-10.2)
[2023-06-15 06:01] LABS: ALBUMIN 3.3 g/dL (3.5-5.0); ALKALINE PHOSPHATASE 46.9 U/L (53-141); ASPARTATE AMINO TRANSFERASE 35.3 U/L (14-36); BILIRUBIN,TOTAL 0.79 mg/dL (0.2-1.3); BLOOD UREA NITROGEN 12.2 mg/dL (7-17); CALCIUM 8.74 mg/dL (8.4-10.2); CARBON DIOXIDE 29.1 mmol/L (22-30.0); CHLORIDE 105.9 mmol/L (98-107); CREATININE 1.06 mg/dL (0.60-1.30); GLUCOSE 89.2 mg/dL (74-106); POTASSIUM 3.57 mmol/L (3.5-5.1); SODIUM 136.9 mmol/L (134.5-145); TOTAL PROTEIN 5.91 g/dL (6.3-8.2)
[2023-06-15] MEDS: CARDIZEM CD PO SCH (10:27)
--- NOTE | 2023-06-15 10:32 | PCM.PROG ---
Date/Time Seen Date Seen by Provider: 06/15/23 Time Seen by Provider: 08:30 Provider Provider: CAROLYN HAYWARD PA-C, [facility] Chief Complaint Chief Complaint: RECURRING FALLS; ANTIPLAT THERAPY; CKD; DEHYD Subjective Subjective: Patient still dropping systolic with standing, however symptoms are improving. She did not complain of dizziness with last ortho set. She worked with PT and OT today without dizziness/chest discomfort/nausea. Objective Appearance: Positive Well-appearing, Well-nourished, No Apparent Distress and Alert and Oriented x3 Chest/Lungs: Positive Clear to Auscultation Bilaterally; Negative Rales, Rhonci or Wheezes Heart: Positive RRR GI/: Positive Soft, Nontender, Bowel Sounds Normal and No Distention Neurological: Positive Cranial Nerves Intact, Alert, Oriented and Other (+generalized weakness ) Vital Signs Vital Signs: Vital Signs: Last 24 Hours 06/14/23 13:00 06/14/23 14:00 06/14/23 19:00 Temperature 98.2 F Temperature Source Temporal Artery Scan Pulse Rate 54 L Respiratory Rate 18 Blood Pressure 149/64 H Blood Pressure Mean 92 Blood Pressure Location Left Arm Blood Pressure Position Sitting O2 Sat by Pulse Oximetry 96 Oxygen Delivery Method Room Air Telemetry Type Bedside Monitor Remote Telemetry Telemetry Monitoring Continues Continues Telemetry Heart Rate 67 54 L EKG MT Interval 0.13 0.17 EKG QRS Interval 0.09 0.08 Telemetry Strip Reading [facility] 06/14/23 21:22 06/14/23 21:23 06/15/23 00:55 Temperature 97.7 F Temperature Source Temporal Artery Scan Pulse Rate 65 Respiratory Rate 20 Blood Pressure 189/103 H 184/87 H Blood Pressure Mean 131 119 Blood Pressure Location Left Arm Right Arm Blood Pressure Position Supine O2 Sat by Pulse Oximetry 96 Oxygen Delivery Method Room Air Room Air Telemetry Type Remote Telemetry Telemetry Monitoring Continues Telemetry Heart Rate 58 L EKG MT Interval 0.18 EKG QRS Interval 0.08 Telemetry Strip [place] 06/15/23 01:33 06/15/23 05:26 06/15/23 05:37 Temperature 98.5 F Temperature Source Temporal Artery Scan Pulse Rate 56 L 62 59 L Respiratory Rate 16 18 16 Blood Pressure 168/84 H 186/88 H 175/82 H Blood Pressure Mean 112 120 113 Blood Pressure Location Left Arm Left Arm Left Arm Blood Pressure Position Supine Supine Supine O2 Sat by Pulse Oximetry 94 L Oxygen Delivery Method Room Air Room Air Room Air Telemetry Type Telemetry Monitoring Telemetry Heart Rate EKG MT Interval EKG QRS Interval Telemetry Strip [place] 06/15/23 06:56 06/15/23 08:00 06/15/23 08:13 Temperature Temperature Source Pulse Rate 79 68 Respiratory Rate Blood Pressure 160/68 H 157/85 H Blood Pressure Mean Blood Pressure Location Left Arm Left Arm Blood Pressure Position Supine Sitting O2 Sat by Pulse Oximetry Oxygen Delivery Method Telemetry Type Remote Telemetry Telemetry Monitoring Continues Telemetry Heart Rate 63 EKG MT Interval 0.18 EKG QRS Interval 0.10 Telemetry Strip Reading [facility] 06/15/23 08:14 Temperature Temperature Source Pulse Rate 71 Respiratory Rate Blood Pressure 92/55 L Blood Pressure Mean Blood Pressure Location Left Arm Blood Pressure Position Standing O2 Sat by Pulse Oximetry Oxygen Delivery Method Telemetry Type Telemetry Monitoring Telemetry Heart Rate EKG MT Interval EKG QRS Interval Telemetry Strip Reading Lab Results Lab Results: Lab Results: Last 24 Hours 06/15/23 05:21 WBC 6.06 RBC 3.50 L Hgb 11.6 L Hct 35.7 L MCV 102.0 H MCH 33.1 H MCHC 32.5 RDW Coeff of Christopher 13.1 Plt Count 150 Immature Gran % (Auto) 0.3 Neut % (Auto) 51.1 Lymph % (Auto) 36.0 [place] % (Auto) 9.9 Eos % (Auto) 2.5 Baso % (Auto) 0.2 Neut # (Auto) 3.1 Lymph # (Auto) 2.2 [place] # (Auto) 0.6 Eos # (Auto) 0.2 Baso # (Auto) 0.0 Immature Gran # (Auto) 0.0 Sodium 136.9 Potassium 3.57 Chloride 105.9 Carbon Dioxide 29.1 Anion Gap 5.47 BUN 12.2 Creatinine 1.06 Estimated GFR (MDRD) 49.00 BUN/Creatinine Ratio 11.50 Glucose 89.2 Calcium 8.74 Total Bilirubin 0.79 AST 35.3 ALT 27.0 Alkaline Phosphatase 46.9 L Total Protein 5.91 L Albumin 3.30 L Globulin 2.61 Albumin/Globulin Ratio 1.26 Additional Comments Additional Comments: I have independently reviewed and interpreted the labs/EKGs/imaging ordered during this hospital stay. I have reviewed outside records that are available in our EMR that pertain to medical stay including imaging/notes/labs from previous visits. Active Medications Active Medications: Medications Generic Name Dose Route Start Last Admin Trade Name Sher PRN Reason Stop Dose Admin Acetaminophen 650 mg 06/13/23 09:14 06/13/23 11:11 Acetaminophen 325 Mg Tablet PO 650 mg Q4H PRN Administration Mild Pain Amitriptyline HCl 25 mg 06/13/23 21:00 06/14/23 20:59 Amitriptyline Hcl 25 Mg Tablet PO 25 mg BEDTIME CYNDY Administration Aspirin 81 mg 06/13/23 10:00 06/15/23 08:23 Aspirin 81 Mg Tablet.Dr PO 81 mg DAILYWM2 CYNDY Administration Clopidogrel Bisulfate 75 mg 06/13/23 10:00 06/15/23 08:24 Clopidogrel Bisulfate 75 Mg Tablet PO 75 mg DAILY CYNDY Administration Diltiazem HCl 240 mg 06/13/23 09:45 06/14/23 10:14 Diltiazem Hcl 120 Mg Cap.Er.24h PO Not Given DAILY CYNDY Diltiazem HCl 120 mg 06/15/23 09:35 06/15/23 10:27 Diltiazem Hcl 120 Mg Cap.Er.24h PO 120 mg DAILY CYNDY Administration Ezetimibe 10 mg 06/13/23 10:00 06/15/23 08:24 Ezetimibe 10 Mg Tablet PO 10 mg DAILY CYNDY Administration Enoxaparin Sodium 30 mg 06/14/23 09:00 06/15/23 08:24 Enoxaparin Sodium 30 Mg/0.3 Ml Syr SUBCUT 30 mg DAILY CYNDY Administration Famotidine 10 mg 06/13/23 10:00 06/15/23 05:18 Famotidine 20 Mg Tablet PO 10 mg BIDAC2 CYNDY Administration Lactated Ringer's 1,000 mls @ 75 mls/hr 06/13/23 11:00 06/15/23 03:29 Lactated Ringers IV 75 mls/hr .[id number] CYNDY Administration Isosorbide Mononitrate 30 mg 06/13/23 10:00 06/13/23 10:19 Isosorbide Mononitrate 30 Mg Tab.Er.24h PO 30 mg DAILY CYNDY Administration Lisinopril 20 mg 06/13/23 09:50 06/15/23 08:23 Lisinopril 10 Mg Tablet PO 20 mg BID CYNDY Administration Montelukast Sodium 10 mg 06/13/23 09:50 06/15/23 08:24 Montelukast Sodium 10 Mg Tablet PO 10 mg DAILY CYNDY Administration Ondansetron HCl 4 mg 06/13/23 09:14 Ondansetron Hcl/Pf 4 Mg/2 Ml Sdv IVP Q6H PRN Nausea / Vomiting Pantoprazole Sodium 40 mg 06/13/23 10:00 06/15/23 05:18 Pantoprazole Sodium 40 Mg Tablet.Dr PO 40 mg QDAC2 CYNDY Administration Ranolazine 500 mg 06/13/23 21:00 06/15/23 08:24 Ranolazine 500 Mg Tab.Er.12h PO 500 mg BID CYNDY Administration Rosuvastatin Calcium 40 mg 06/13/23 21:00 06/14/23 20:59 Rosuvastatin Calcium 10 Mg Tablet PO 40 mg BEDTIME CYNDY Administration Plan Plan: 1. Orthostatic hypotension - Improved, but still dropping >[address] Waddell can hold imdur as this may be contributing. DC fluids today as patient is well hydrated. Ranexa dose decreased due to CrCl. Cont brigida hose. Fall precautions. PT/OT. 2. CAD with recent cardiac cath - Plan for PCI in next couple weeks. Cont asa and plavix. 3. Bradycardia - Could be contributing to symptoms/falls. HR dipped into 30s, was consistently 40s on 06/13. Restarted cardizem today at half the dose. 4. AIDAN, stage I - Resolved, stop fluids 5. Hypertension - Cont home meds 6. GERD - Cont home meds 7. Hyperlipidemia - Cont home meds 8. Frequent falls - 3 falls this week, likely due to orthostasis. PT/OT DVT: Lovenox Dispo: Will require another 1-2 midnights Updated patient's granddaughter (whom is a [employer]) on plan of care, who will update her father and uncle/POA. Discussed PT/OT feel she is too high functioning for swingbed. Family would like for her to still get some rehab with upcoming procedure, also working on assisted living arrangements outpatient. Will work on placement. Review Statement Review Statement: I have personally discussed and reviewed the patient's visit/currently labs/imaging/decision making with Dr. Arroyo, my supervising attending. Greater that 50 minutes spent with patient, 50% of the time spent with this patient was devoted to counseling and coordination of care.
[2023-06-15 12:08] LABS: BILIRUBIN,URINE Negative (NEGATIVE); CLARITY,URINE Clear (CLEAR); COLOR,URINE Yellow (YELLOW); GLUCOSE, URINE (UA) Negative (NEGATIVE); KETONES,URINE Negative (NEGATIVE); LEUKOCYTE ESTERASE ,URINE Negative (NEGATIVE); NITRITE,URINE Negative (NEGATIVE); PH,URINE 7.5 (5-9); PROTEIN,URINE 1+ (NEGATIVE); URINE, BLOOD Trace-intact (NEGATIVE)
[2023-06-15 12:21] LABS: BACTERIA,URINE TRACE (NOT PRESENT); SQUAMOUS EPITHELIAL CELL,UR 0-2 (0-5); URINE RBC, MICROSCOPIC 0-2 (0-2); URINE WBC, MICROSCOPIC 0-2 (0-2)
[2023-06-16 04:56] LABS: BASOPHILS % (AUTO) 0.3 % (0.0-3.0); EOSINOPHILS # (AUTO) 0.2 K/ul (0.0-0.7); EOSINOPHILS % (AUTO) 2.8 % (0.0-7.0); HEMATOCRIT 36.6 % (37.0-47.0); HEMOGLOBIN 11.8 g/dl (12.0-16.0); IMMATURE GRANULOCYTE % (AUTO) 0.3 % (0.0-5.0); LYMPHOCYTES # (AUTO) 2.4 K/uL (0.60-3.4); LYMPHOCYTES % (AUTO) 32.9 (10.0-50.0); MEAN CORPUSCULAR HEMOGLOBIN 32.9 pg (27.0-31.0); MEAN CORPUSCULAR HGB CONC 32.2 (31.8-35.4); MEAN CORPUSCULAR VOLUME 101.9 fl (81.0-99.0); MONOCYTES # (AUTO) 0.7 K/uL (0.4-2.0); NEUTROPHILS % (AUTO) 54.7 % (42.2-75.2); PLATELET COUNT 149 10^3/uL (140-440); RED BLOOD COUNT 3.59 10^6/ul (4.20-5.40); WHITE BLOOD COUNT 7.21 K/ul (4.6-10.2)
[2023-06-16 05:10] LABS: ALANINE AMINOTRANSFERASE 28.4 U/L (0-35); ALBUMIN 3.31 g/dL (3.5-5.0); ALKALINE PHOSPHATASE 44.5 U/L (53-141); ASPARTATE AMINO TRANSFERASE 43.7 U/L (14-36); BILIRUBIN,TOTAL 0.81 mg/dL (0.2-1.3); BLOOD UREA NITROGEN 16.9 mg/dL (7-17); CALCIUM 8.92 mg/dL (8.4-10.2); CARBON DIOXIDE 28.8 mmol/L (22-30.0); CHLORIDE 104.3 mmol/L (98-107); CREATININE 1.15 mg/dL (0.60-1.30); GLUCOSE 97.2 mg/dL (74-106); POTASSIUM 4.38 mmol/L (3.5-5.1); SODIUM 136.7 mmol/L (134.5-145); TOTAL PROTEIN 5.9 g/dL (6.3-8.2)
--- NOTE | 2023-06-16 09:04 | PCM.PROG ---
Date/Time Seen Date Seen by Provider: 06/16/23 Time Seen by Provider: 08:30 Provider Provider: CAROLYN [facility]AYWARD [facility]-C[facility] Chief Complaint Chief Complaint: RECURRING FALLS; ANTIPLAT THERAPY; CKD; DEHYD Subjective Subjective: Patient feeling better. Denies dizziness or lightheadedness when standing. Has been ambulatory. Objective Appearance: Positive Well-appearing, Well-nourished, No Apparent Distress and Alert and Oriented x3 Chest/Lungs: Positive Clear to Auscultation Bilaterally; Negative Rales, Rhonci or Wheezes Heart: Positive RRR GI/: Positive Soft, Nontender, Bowel Sounds Normal and No Distention Neurological: Positive Cranial Nerves Intact, Alert, Oriented and Other (+generalized weakness ) Vital Signs Vital Signs: Vital Signs: Last 24 Hours 06/15/23 11:56 06/15/23 11:57 06/15/23 12:03 Temperature Temperature Source Pulse Rate 63 68 73 Respiratory Rate Blood Pressure 184/80 H 149/80 H 117/66 Blood Pressure Mean Blood Pressure Location Left Arm Left Arm Left Arm Blood Pressure Position Supine Sitting Standing O2 Sat by Pulse Oximetry Oxygen Delivery Method Telemetry Type Telemetry Monitoring Telemetry Heart Rate EKG [place] Interval EKG QRS Interval Telemetry Strip [place] 06/15/23 13:00 06/15/23 14:00 06/15/23 19:00 Temperature 98.6 F Temperature Source Temporal Artery Scan Pulse Rate 78 Respiratory Rate 18 Blood Pressure 162/87 H Blood Pressure Mean 112 Blood Pressure Location Left Arm Blood Pressure Position Supine O2 Sat by Pulse Oximetry 95 Oxygen Delivery Method Room Air Telemetry Type Remote Telemetry Remote Telemetry Telemetry Monitoring Continues Continues Telemetry Heart Rate 81 69 EKG [place] Interval 0.18 0.16 EKG QRS Interval 0.06 0.08 Telemetry Strip Reading NSR NSR 06/15/23 21:11 06/16/23 01:00 06/16/23 05:10 Temperature 97.4 F L 97.9 F Temperature Source Temporal Artery Scan Temporal Artery Scan Pulse Rate 75 58 L Respiratory Rate 18 18 Blood Pressure 169/92 H Blood Pressure Mean 117 Blood Pressure Location Left Arm Blood Pressure Position Supine O2 Sat by Pulse Oximetry 96 96 Oxygen Delivery Method Room Air Room Air Telemetry Type Remote Telemetry Telemetry Monitoring Continues Telemetry Heart Rate 67 EKG [place] Interval 0.18 EKG QRS Interval 0.08 Telemetry Strip Reading NSR 03/23/24 06:57 Temperature Temperature Source Pulse Rate Respiratory Rate Blood Pressure Blood Pressure Mean Blood Pressure Location Blood Pressure Position O2 Sat by Pulse Oximetry Oxygen Delivery Method Telemetry Type Remote Telemetry Telemetry Monitoring Continues Telemetry Heart Rate 62 EKG [place] Interval 0.14 EKG QRS Interval 0.10 Telemetry Strip Reading SR Lab Results Lab Results: Lab Results: Last 24 Hours 06/16/23 06/15/23 04:50 12:01 WBC 7.21 RBC 3.59 L Hgb 11.8 L Hct 36.6 L MCV 101.9 H MCH 32.9 H MCHC 32.2 RDW Coeff of Christopher 13.0 Plt Count 149 Immature Gran % (Auto) 0.3 Neut % (Auto) 54.7 Lymph % (Auto) 32.9 [place] % (Auto) 9.0 Eos % (Auto) 2.8 Baso % (Auto) 0.3 Neut # (Auto) 4.0 Lymph # (Auto) 2.4 [place] # (Auto) 0.7 Eos # (Auto) 0.2 Baso # (Auto) 0.0 Immature Gran # (Auto) 0.0 Sodium 136.7 Potassium 4.38 Chloride 104.3 Carbon Dioxide 28.8 Anion Gap 7.98 BUN 16.9 Creatinine 1.15 Estimated GFR (MDRD) 45.00 BUN/Creatinine Ratio 14.69 Glucose 97.2 Calcium 8.92 Total Bilirubin 0.81 AST 43.7 H ALT 28.4 Alkaline Phosphatase 44.5 L Total Protein 5.90 L Albumin 3.31 L Globulin 2.59 Albumin/Globulin Ratio 1.27 Urine Color Yellow Urine Clarity Clear Urine pH 7.5 Ur Specific [place] 1.020 Urine Protein 1+ H Urine Glucose (UA) Negative Urine Ketones Negative Urine Blood Trace-intact H Urine Nitrite Negative Urine Bilirubin Negative Urine Urobilinogen 1.0 H Ur Leukocyte Esterase Negative Urine Microscopic RBC 0-2 Urine Microscopic WBC 0-2 Ur Squamous Epith Cells 0-2 Urine Bacteria Trace Additional Comments Additional Comments: I have independently reviewed and interpreted the labs/EKGs/imaging ordered during this hospital stay. I have reviewed outside records that are available in our EMR that pertain to medical stay including imaging/notes/labs from previous visits. Active Medications Active Medications: Medications Generic Name Dose Route Start Last Admin Trade Name Freq PRN Reason Stop Dose Admin Acetaminophen 650 mg 06/13/23 09:14 06/16/23 04:20 Acetaminophen 325 Mg Tablet PO 650 mg Q4H PRN Administration Mild Pain Amitriptyline HCl 25 mg 06/13/23 21:00 06/15/23 20:14 Amitriptyline Hcl 25 Mg Tablet PO 25 mg BEDTIME CYNDY Administration Aspirin 81 mg 06/13/23 10:00 06/16/23 08:44 Aspirin 81 Mg Tablet.Dr PO 81 mg DAILYWM2 CYNDY Administration Clopidogrel Bisulfate 75 mg 06/13/23 10:00 06/16/23 08:44 Clopidogrel Bisulfate 75 Mg Tablet PO 75 mg DAILY CYNDY Administration Diltiazem HCl 240 mg 06/13/23 09:45 06/14/23 10:14 Diltiazem Hcl 120 Mg Cap.Er.24h PO Not Given DAILY CYNDY Diltiazem HCl 120 mg 06/15/23 09:35 06/16/23 08:48 Diltiazem Hcl 120 Mg Cap.Er.24h PO 120 mg DAILY CYNDY Administration Ezetimibe 10 mg 06/13/23 10:00 06/16/23 08:47 Ezetimibe 10 Mg Tablet PO 10 mg DAILY CYNDY Administration Enoxaparin Sodium 30 mg 06/14/23 09:00 06/16/23 08:46 Enoxaparin Sodium 30 Mg/0.3 Ml Syr SUBCUT 30 mg DAILY CYNDY Administration Famotidine 10 mg 06/13/23 10:00 06/16/23 05:42 Famotidine 20 Mg Tablet PO 10 mg BIDAC2 CYNDY Administration Isosorbide Mononitrate 30 mg 06/13/23 10:00 06/13/23 10:19 Isosorbide Mononitrate 30 Mg Tab.Er.24h PO 30 mg DAILY CYNDY Administration Lisinopril 20 mg 06/13/23 09:50 06/16/23 08:45 Lisinopril 10 Mg Tablet PO 20 mg BID CYNDY Administration Montelukast Sodium 10 mg 06/13/23 09:50 06/16/23 08:45 Montelukast Sodium 10 Mg Tablet PO 10 mg DAILY CYNDY Administration Ondansetron HCl 4 mg 06/13/23 09:14 Ondansetron Hcl/Pf 4 Mg/2 Ml Sdv IVP Q6H PRN Nausea / Vomiting Pantoprazole Sodium 40 mg 06/13/23 10:00 06/16/23 05:42 Pantoprazole Sodium 40 Mg Tablet. PO 40 mg QDAC2 CYNDY Administration Ranolazine 500 mg 06/13/23 21:00 06/16/23 08:46 Ranolazine 500 Mg Tab.Er.12h PO 500 mg BID CYNDY Administration Rosuvastatin Calcium 40 mg 06/13/23 21:00 06/15/23 20:13 Rosuvastatin Calcium 10 Mg Tablet PO 40 mg BEDTIME CYNDY Administration Sodium Chloride 1 syr 06/15/23 21:00 06/16/23 04:47 0.9% Sodium Chloride 10 Ml Disp.Syrin IVF 1 syr Q8HR CYNDY Administration Sodium Chloride 1 syr 06/15/23 15:52 0.9% Sodium Chloride 10 Ml Disp.Syrin IVF PRN PRN Maintain IV Patency Plan Plan: 1. Orthostatic hypotension - Improved. Per Dr. Waddell can hold imdur as this may be contributing. Fluids d/c'd 06/14. Ranexa dose decreased due to CrCl. Cont brigida hose. Fall precautions. PT/OT. 2. CAD with recent cardiac cath - Plan for PCI in next couple weeks. Cont asa and plavix. 3. Bradycardia - Improved. Could be contributing to symptoms/falls. HR dipped into 30s, was consistently 40s on 06/13. Restarted cardizem 06/14 at half the dose. 4. AIDAN, stage I - Resolved, stop fluids 5. Hypertension - Cont home meds 6. GERD - Cont home meds 7. Hyperlipidemia - Cont home meds 8. Frequent falls - 3 falls this week, likely due to orthostasis. PT/OT DVT: Lovenox Dispo: Awaiting NH placement for rehab. Review Statement Review Statement: I have personally discussed and reviewed the patient's visit/currently labs/imaging/decision making with Dr. Arroyo, my supervising attending. Greater that 50 minutes spent with patient, 50% of the time spent with this patient was devoted to counseling and coordination of care.
[2023-06-16] MEDS: HYDRALAZINE HCL IVP PRN (21:58)
[2023-06-17 05:02] LABS: BASOPHILS % (AUTO) 0.4 % (0.0-3.0); EOSINOPHILS # (AUTO) 0.2 K/ul (0.0-0.7); EOSINOPHILS % (AUTO) 2.1 % (0.0-7.0); HEMATOCRIT 37.8 % (37.0-47.0); HEMOGLOBIN 12.3 g/dl (12.0-16.0); IMMATURE GRANULOCYTE % (AUTO) 0.3 % (0.0-5.0); LYMPHOCYTES # (AUTO) 2.6 K/uL (0.60-3.4); LYMPHOCYTES % (AUTO) 33.6 (10.0-50.0); MEAN CORPUSCULAR HEMOGLOBIN 32.7 pg (27.0-31.0); MEAN CORPUSCULAR HGB CONC 32.5 (31.8-35.4); MEAN CORPUSCULAR VOLUME 100.5 fl (81.0-99.0); MONOCYTES # (AUTO) 0.6 K/uL (0.4-2.0); MONOCYTES % (AUTO) 7.9 (0-10); NEUTROPHILS # (AUTO) 4.3 K/ul (2.0-6.9); NEUTROPHILS % (AUTO) 55.7 % (42.2-75.2); PLATELET COUNT 163 10^3/uL (140-440); RDW COEFFICIENT OF VARIATION 13.1 % (11.6-14.8); RED BLOOD COUNT 3.76 10^6/ul (4.20-5.40); WHITE BLOOD COUNT 7.71 K/ul (4.6-10.2)
[2023-06-17 05:19] LABS: ALANINE AMINOTRANSFERASE 30.5 U/L (0-35); ALBUMIN 3.53 g/dL (3.5-5.0); ALKALINE PHOSPHATASE 50.1 U/L (53-141); ASPARTATE AMINO TRANSFERASE 45.2 U/L (14-36); BILIRUBIN,TOTAL 0.82 mg/dL (0.2-1.3); BLOOD UREA NITROGEN 17.2 mg/dL (7-17); CALCIUM 8.72 mg/dL (8.4-10.2); CARBON DIOXIDE 25.6 mmol/L (22-30.0); CHLORIDE 106.7 mmol/L (98-107); CREATININE 1.09 mg/dL (0.60-1.30); GLUCOSE 98.2 mg/dL (74-106); POTASSIUM 3.93 mmol/L (3.5-5.1); SODIUM 136.4 mmol/L (134.5-145); TOTAL PROTEIN 6.3 g/dL (6.3-8.2)
--- NOTE | 2023-06-17 09:00 | PCM.PROG ---
Date/Time Seen Date Seen by Provider: 06/17/23 Time Seen by Provider: 08:50 Provider Provider: CAROLYN HAYWARD PA-C, [facility] Chief Complaint Chief Complaint: RECURRING FALLS; ANTIPLAT THERAPY; CKD; DEHYD Subjective Subjective: Patient sitting in chair, coloring in her coloring book. Has no complaints. States she hasn't had any chest discomfort or dizziness. She has been "taking it slow." BP was elevated last night requiring IV hydralazine. Objective Appearance: Positive Well-appearing, Well-nourished, No Apparent Distress and Alert and Oriented x3 Chest/Lungs: Positive Clear to Auscultation Bilaterally; Negative Rales, Rhonci or Wheezes Heart: Positive RRR GI/: Positive Soft, Nontender, Bowel Sounds Normal and No Distention Neurological: Positive Cranial Nerves Intact, Alert, Oriented and Other (+generalized weakness ) Vital Signs Vital Signs: Vital Signs: Last 24 Hours 06/16/23 13:00 06/16/23 14:00 06/16/23 19:00 Temperature 97.8 F Temperature Source Temporal Artery Scan Pulse Rate 63 Respiratory Rate 17 Blood Pressure 164/90 H Blood Pressure Mean 114 Blood Pressure Location Left Arm Blood Pressure Position Supine O2 Sat by Pulse Oximetry 96 Oxygen Delivery Method Room Air Telemetry Type Remote Telemetry Remote Telemetry Telemetry Monitoring Continues Continues Telemetry Heart Rate 64 66 EKG [place] Interval 0.16 0.16 EKG QRS Interval 0.10 0.08 Telemetry Strip Reading SR SR 06/16/23 19:35 06/16/23 21:18 06/16/23 21:52 Temperature 97.3 F L Temperature Source Tympanic Pulse Rate 92 Respiratory Rate 20 Blood Pressure 214/148 H 182/82 H Blood Pressure Mean 170 115 Blood Pressure Location Left Arm Blood Pressure Position Sitting O2 Sat by Pulse Oximetry 97 Oxygen Delivery Method Room Air Room Air Room Air Telemetry Type Telemetry Monitoring Telemetry Heart Rate EKG [place] Interval EKG QRS Interval Telemetry Strip [place] 06/16/23 23:05 06/17/23 01:00 06/17/23 01:57 Temperature 98.0 F Temperature Source Temporal Artery Scan Pulse Rate 72 77 Respiratory Rate 20 16 Blood Pressure 174/92 H 150/97 H Blood Pressure Mean 119 114 Blood Pressure Location Left Arm Left Arm Blood Pressure Position Supine Supine O2 Sat by Pulse Oximetry 95 Oxygen Delivery Method Room Air Room Air Telemetry Type Remote Telemetry Telemetry Monitoring Continues Telemetry Heart Rate 70 EKG [place] Interval 0.20 EKG QRS Interval 0.08 Telemetry Strip Reading SR 06/17/23 05:37 06/17/23 06:52 Temperature 97.4 F L Temperature Source Temporal Artery Scan Pulse Rate 66 Respiratory Rate 18 Blood Pressure 164/87 H Blood Pressure Mean 112 Blood Pressure Location Left Arm Blood Pressure Position Supine O2 Sat by Pulse Oximetry 94 L Oxygen Delivery Method Room Air Telemetry Type Remote Telemetry Telemetry Monitoring Continues Telemetry Heart Rate 60 EKG [place] Interval 0.16 EKG QRS Interval 0.08 Telemetry Strip Reading SR Lab Results Lab Results: Lab Results: Last 24 Hours 06/17/23 04:57 WBC 7.71 RBC 3.76 L Hgb 12.3 Hct 37.8 MCV 100.5 H MCH 32.7 H MCHC 32.5 RDW Coeff of Christopher 13.1 Plt Count 163 Immature Gran % (Auto) 0.3 Neut % (Auto) 55.7 Lymph % (Auto) 33.6 [place] % (Auto) 7.9 Eos % (Auto) 2.1 Baso % (Auto) 0.4 Neut # (Auto) 4.3 Lymph # (Auto) 2.6 [place] # (Auto) 0.6 Eos # (Auto) 0.2 Baso # (Auto) 0.0 Immature Gran # (Auto) 0.0 Sodium 136.4 Potassium 3.93 Chloride 106.7 Carbon Dioxide 25.6 Anion Gap 8.03 BUN 17.2 H Creatinine 1.09 Estimated GFR (MDRD) 47.00 BUN/Creatinine Ratio 15.77 Glucose 98.2 Calcium 8.72 Total Bilirubin 0.82 AST 45.2 H ALT 30.5 Alkaline Phosphatase 50.1 L Total Protein 6.30 Albumin 3.53 Globulin 2.77 Albumin/Globulin Ratio 1.27 Additional Comments Additional Comments: I have independently reviewed and interpreted the labs/EKGs/imaging ordered during this hospital stay. I have reviewed outside records that are available in our EMR that pertain to medical stay including imaging/notes/labs from previous visits. Active Medications Active Medications: Medications Generic Name Dose Route Start Last Admin Trade Name Freq PRN Reason Stop Dose Admin Acetaminophen 650 mg 06/13/23 09:14 06/16/23 04:20 Acetaminophen 325 Mg Tablet PO 650 mg Q4H PRN Administration Mild Pain Amitriptyline HCl 25 mg 06/13/23 21:00 06/16/23 20:18 Amitriptyline Hcl 25 Mg Tablet PO 25 mg BEDTIME CYNDY Administration Aspirin 81 mg 06/13/23 10:00 06/17/23 08:14 Aspirin 81 Mg Tablet.Dr PO 81 mg DAILYWM2 CYNDY Administration Clopidogrel Bisulfate 75 mg 06/13/23 10:00 06/17/23 08:13 Clopidogrel Bisulfate 75 Mg Tablet PO 75 mg DAILY CYNDY Administration Diltiazem HCl 240 mg 06/13/23 09:45 06/14/23 10:14 Diltiazem Hcl 120 Mg Cap.Er.24h PO Not Given DAILY CYNDY Diltiazem HCl 120 mg 06/15/23 09:35 06/17/23 08:55 Diltiazem Hcl 120 Mg Cap.Er.24h PO 120 mg DAILY CYNDY Administration Ezetimibe 10 mg 06/13/23 10:00 06/17/23 08:11 Ezetimibe 10 Mg Tablet PO 10 mg DAILY CYNDY Administration Enoxaparin Sodium 30 mg 06/14/23 09:00 06/17/23 08:14 Enoxaparin Sodium 30 Mg/0.3 Ml Syr SUBCUT 30 mg DAILY CYNDY Administration Famotidine 10 mg 06/13/23 10:00 06/17/23 05:13 Famotidine 20 Mg Tablet PO 10 mg BIDAC2 CYNDY Administration Hydralazine HCl 5 mg 06/16/23 21:48 06/16/23 21:58 Hydralazine Hcl 20 Mg/Ml Sdv IVP 5 mg Q6H PRN Administration Hypertension Isosorbide Mononitrate 30 mg 06/13/23 10:00 06/13/23 10:19 Isosorbide Mononitrate 30 Mg Tab.Er.24h PO 30 mg DAILY CYNDY Administration Lisinopril 20 mg 06/13/23 09:50 06/17/23 08:13 Lisinopril 10 Mg Tablet PO 20 mg BID CYNDY Administration Montelukast Sodium 10 mg 06/13/23 09:50 06/17/23 08:14 Montelukast Sodium 10 Mg Tablet PO 10 mg DAILY CYNDY Administration Ondansetron HCl 4 mg 06/13/23 09:14 Ondansetron Hcl/Pf 4 Mg/2 Ml Sdv IVP Q6H PRN Nausea / Vomiting Pantoprazole Sodium 40 mg 06/13/23 10:00 06/17/23 05:13 Pantoprazole Sodium 40 Mg Tablet. PO 40 mg QDAC2 CYNDY Administration Ranolazine 500 mg 06/13/23 21:00 06/17/23 08:12 Ranolazine 500 Mg Tab.Er.12h PO 500 mg BID CYNDY Administration Rosuvastatin Calcium 40 mg 06/13/23 21:00 06/16/23 20:18 Rosuvastatin Calcium 10 Mg Tablet PO 40 mg BEDTIME CYNDY Administration Sodium Chloride 1 syr 06/15/23 21:00 06/17/23 05:14 0.9% Sodium Chloride 10 Ml Disp.Syrin IVF 1 syr Q8HR CYNDY Administration Sodium Chloride 1 syr 06/15/23 15:52 06/16/23 12:44 0.9% Sodium Chloride 10 Ml Disp.Syrin IVF 1 syr PRN PRN Administration Maintain IV Patency Plan Plan: 1. Orthostatic hypotension - Improved. Per Dr. Waddell can hold imdur as this may be contributing. Fluids d/c'd 06/14. Ranexa dose decreased due to CrCl. Cont brigida hose. Fall precautions. PT/OT. 2. CAD with recent cardiac cath - Plan for PCI in next couple weeks. Cont asa and plavix. 3. Bradycardia - Improved. Could be contributing to symptoms/falls. HR dipped into 30s, was consistently 40s on 06/13. Restarted cardizem 06/14 at half the dose. 4. AIDAN, stage I - Resolved, stop fluids 5. Hypertension - Cont home meds. May need to adjust regimen if BP continues to be elevated, will monitor. 6. GERD - Cont home meds 7. Hyperlipidemia - Cont home meds 8. Frequent falls - 3 falls this week, likely due to orthostasis. PT/OT DVT: Lovenox Dispo: Awaiting NH placement for rehab. Review Statement Review Statement: I have personally discussed and reviewed the patient's visit/currently labs/imaging/decision making with Dr. Arroyo, my supervising attending. Greater that 50 minutes spent with patient, 50% of the time spent with this patient was devoted to counseling and coordination of care.
[2023-06-18 05:09] LABS: BASOPHILS % (AUTO) 0.3 % (0.0-3.0); EOSINOPHILS # (AUTO) 0.2 K/ul (0.0-0.7); EOSINOPHILS % (AUTO) 2.3 % (0.0-7.0); HEMATOCRIT 35.9 % (37.0-47.0); HEMOGLOBIN 11.6 g/dl (12.0-16.0); IMMATURE GRANULOCYTE % (AUTO) 0.2 % (0.0-5.0); LYMPHOCYTES % (AUTO) 30.7 (10.0-50.0); MEAN CORPUSCULAR HEMOGLOBIN 32.7 pg (27.0-31.0); MEAN CORPUSCULAR HGB CONC 32.3 (31.8-35.4); MEAN CORPUSCULAR VOLUME 101.1 fl (81.0-99.0); MONOCYTES # (AUTO) 0.5 K/uL (0.4-2.0); MONOCYTES % (AUTO) 7.9 (0-10); NEUTROPHILS # (AUTO) 3.9 K/ul (2.0-6.9); NEUTROPHILS % (AUTO) 58.6 % (42.2-75.2); PLATELET COUNT 155 10^3/uL (140-440); RED BLOOD COUNT 3.55 10^6/ul (4.20-5.40); WHITE BLOOD COUNT 6.59 K/ul (4.6-10.2)
[2023-06-18 05:25] LABS: ALANINE AMINOTRANSFERASE 29.9 U/L (0-35); ALBUMIN 3.34 g/dL (3.5-5.0); ALKALINE PHOSPHATASE 43.5 U/L (53-141); BILIRUBIN,TOTAL 0.82 mg/dL (0.2-1.3); BLOOD UREA NITROGEN 21.8 mg/dL (7-17); CALCIUM 8.72 mg/dL (8.4-10.2); CARBON DIOXIDE 27.6 mmol/L (22-30.0); CHLORIDE 104.2 mmol/L (98-107); CREATININE 1.26 mg/dL (0.60-1.30); GLUCOSE 103.3 mg/dL (74-106); POTASSIUM 3.93 mmol/L (3.5-5.1); TOTAL PROTEIN 5.95 g/dL (6.3-8.2)
--- NOTE | 2023-06-18 13:57 | PCM.PROG ---
Date/Time Seen Date Seen by Provider: 06/18/23 Time Seen by Provider: 09:00 Provider Provider: CAROLYN HAYWARD PA-C, [facility] Chief Complaint Chief Complaint: RECURRING FALLS; ANTIPLAT THERAPY; CKD; DEHYD Subjective Subjective: Feeling much better today. No dizziness upon standing. Objective Appearance: Positive No Apparent Distress and Alert and Oriented x3 Chest/Lungs: Positive Symmetrical With Equal Breath Sounds, Clear to Auscultation Bilaterally and Good Air Movement all 4 Lung Bertrand Heart: Positive RRR and Pulses Normal GI/: Positive Soft, Nontender, Bowel Sounds Normal and No Distention Musculoskeletal: Positive Not Examined Neurological: Positive Sensation Intact, Motor intact, Alert, Oriented and Other (generalized weakness) Vital Signs Vital Signs: Vital Signs: Last 24 Hours 06/17/23 18:00 06/17/23 19:00 06/17/23 19:52 Temperature 97.5 F L Temperature Source Temporal Artery Scan Pulse Rate 65 Respiratory Rate 17 Blood Pressure 164/93 H Blood Pressure Mean 116 Blood Pressure Location Left Arm Blood Pressure Position Sitting O2 Sat by Pulse Oximetry 97 Oxygen Delivery Method Room Air Room Air Telemetry Type Remote Telemetry Telemetry Monitoring Continues Telemetry Heart Rate 64 EKG MA Interval 0.18 EKG QRS Interval 0.09 Telemetry Strip Reading SR 06/17/23 20:37 06/18/23 01:00 06/18/23 02:00 Temperature 97.3 F L 97.2 F L Temperature Source Temporal Artery Scan Temporal Artery Scan Pulse Rate 62 67 Respiratory Rate 18 18 Blood Pressure 171/79 H 143/88 H Blood Pressure Mean 109 106 Blood Pressure Location Right Arm Right Arm Blood Pressure Position Supine Supine O2 Sat by Pulse Oximetry 96 98 Oxygen Delivery Method Room Air Room Air Telemetry Type Remote Telemetry Telemetry Monitoring Continues Telemetry Heart Rate 47 L EKG MA Interval 0.16 EKG QRS Interval 0.08 Telemetry Strip Reading SB 06/18/23 05:13 06/18/23 07:00 06/18/23 07:53 Temperature 98 F Temperature Source Temporal Artery Scan Pulse Rate 71 Respiratory Rate 16 18 Blood Pressure 163/90 H Blood Pressure Mean 114 Blood Pressure Location Left Arm Blood Pressure Position Supine O2 Sat by Pulse Oximetry 96 Oxygen Delivery Method Room Air Room Air Telemetry Type Remote Telemetry Telemetry Monitoring Continues Telemetry Heart Rate 64 EKG MA Interval 0.14 EKG QRS Interval 0.07 Telemetry Strip Reading SR 06/18/23 10:00 06/18/23 12:55 06/18/23 13:51 Temperature 96.9 F L 97.1 F L Temperature Source Oral Temporal Artery Scan Pulse Rate 63 78 Respiratory Rate 17 14 Blood Pressure 128/82 122/70 Blood Pressure Mean 97 87 Blood Pressure Location Left Arm Left Arm Blood Pressure Position Sitting Supine O2 Sat by Pulse Oximetry 96 97 Oxygen Delivery Method Room Air Room Air Telemetry Type Remote Telemetry Telemetry Monitoring Continues Telemetry Heart Rate 74 EKG MA Interval 0.17 EKG QRS Interval 0.08 Telemetry Strip Reading SR Lab Results Lab Results: Lab Results: Last 24 Hours 06/18/23 05:00 WBC 6.59 RBC 3.55 L Hgb 11.6 L Hct 35.9 L MCV 101.1 H MCH 32.7 H MCHC 32.3 RDW Coeff of Christopher 13.0 Plt Count 155 Immature Gran % (Auto) 0.2 Neut % (Auto) 58.6 Lymph % (Auto) 30.7 [place] % (Auto) 7.9 Eos % (Auto) 2.3 Baso % (Auto) 0.3 Neut # (Auto) 3.9 Lymph # (Auto) 2.0 [place] # (Auto) 0.5 Eos # (Auto) 0.2 Baso # (Auto) 0.0 Immature Gran # (Auto) 0.0 Sodium 136.0 Potassium 3.93 Chloride 104.2 Carbon Dioxide 27.6 Anion Gap 8.13 BUN 21.8 H Creatinine 1.26 Estimated GFR (MDRD) 40.00 BUN/Creatinine Ratio 17.30 Glucose 103.3 Calcium 8.72 Total Bilirubin 0.82 AST 43.0 H ALT 29.9 Alkaline Phosphatase 43.5 L Total Protein 5.95 L Albumin 3.34 L Globulin 2.61 Albumin/Globulin Ratio 1.27 Additional Comments Additional Comments: I have independently reviewed and interpreted the labs/EKGs/imaging ordered during this hospital stay. I have reviewed outside records that are available in our EMR that pertain to medical stay including imaging/notes/labs from previous visits. Active Medications Active Medications: Medications Generic Name Dose Route Start Last Admin Trade Name Freq PRN Reason Stop Dose Admin Acetaminophen 650 mg 06/13/23 09:14 06/16/23 04:20 Acetaminophen 325 Mg Tablet PO 650 mg Q4H PRN Administration Mild Pain Amitriptyline HCl 25 mg 06/13/23 21:00 06/17/23 20:06 Amitriptyline Hcl 25 Mg Tablet PO 25 mg BEDTIME CYNDY Administration Aspirin 81 mg 06/13/23 10:00 06/18/23 08:28 Aspirin 81 Mg Tablet.Dr PO 81 mg DAILYWM2 CYNDY Administration Clopidogrel Bisulfate 75 mg 06/13/23 10:00 06/18/23 08:35 Clopidogrel Bisulfate 75 Mg Tablet PO 75 mg DAILY CYNDY Administration Diltiazem HCl 240 mg 06/13/23 09:45 06/14/23 10:14 Diltiazem Hcl 120 Mg Cap.Er.24h PO Not Given DAILY CYNDY Diltiazem HCl 120 mg 06/15/23 09:35 06/18/23 08:38 Diltiazem Hcl 120 Mg Cap.Er.24h PO 120 mg DAILY CYNDY Administration Ezetimibe 10 mg 06/13/23 10:00 06/18/23 08:34 Ezetimibe 10 Mg Tablet PO 10 mg DAILY CYNDY Administration Enoxaparin Sodium 30 mg 06/14/23 09:00 06/18/23 08:46 Enoxaparin Sodium 30 Mg/0.3 Ml Syr SUBCUT 30 mg DAILY CYNDY Administration Famotidine 10 mg 06/13/23 10:00 06/18/23 05:10 Famotidine 20 Mg Tablet PO 10 mg BIDAC2 CYNDY Administration Hydralazine HCl 5 mg 06/16/23 21:48 06/16/23 21:58 Hydralazine Hcl 20 Mg/Ml Sdv IVP 5 mg Q6H PRN Administration Hypertension Isosorbide Mononitrate 30 mg 06/13/23 10:00 06/13/23 10:19 Isosorbide Mononitrate 30 Mg Tab.Er.24h PO 30 mg DAILY CYNDY Administration Lisinopril 20 mg 06/13/23 09:50 06/18/23 08:36 Lisinopril 10 Mg Tablet PO 20 mg BID CYNDY Administration Montelukast Sodium 10 mg 06/13/23 09:50 06/18/23 08:37 Montelukast Sodium 10 Mg Tablet PO 10 mg DAILY CYNDY Administration Ondansetron HCl 4 mg 06/13/23 09:14 Ondansetron Hcl/Pf 4 Mg/2 Ml Sdv IVP Q6H PRN Nausea / Vomiting Pantoprazole Sodium 40 mg 06/13/23 10:00 06/18/23 05:10 Pantoprazole Sodium 40 Mg Tablet. PO 40 mg QDAC2 CYNDY Administration Ranolazine 500 mg 06/13/23 21:00 06/18/23 08:38 Ranolazine 500 Mg Tab.Er.12h PO 500 mg BID CYNDY Administration Rosuvastatin Calcium 40 mg 06/13/23 21:00 06/17/23 20:05 Rosuvastatin Calcium 10 Mg Tablet PO 40 mg BEDTIME CYNDY Administration Sodium Chloride 1 syr 06/15/23 21:00 06/18/23 12:23 0.9% Sodium Chloride 10 Ml Disp.Syrin IVF 1 syr Q8HR CYNDY Administration Sodium Chloride 1 syr 06/15/23 15:52 06/16/23 12:44 0.9% Sodium Chloride 10 Ml Disp.Syrin IVF 1 syr PRN PRN Administration Maintain IV Patency Plan Plan: 1. Orthostatic hypotension - Improved. Per Dr. Waddell can hold imdur as this may be contributing. Fluids d/c'd 06/14. Ranexa dose decreased due to CrCl. Cont brigida hose. Fall precautions. PT/OT. 2. CAD with recent cardiac cath - Plan for PCI in next couple weeks. Cont asa and plavix. 3. Bradycardia - Improved. Could be contributing to symptoms/falls. HR dipped into 30s, was consistently 40s on 06/13. Restarted cardizem 06/14 at half the dose. 4. AIDAN, stage I - Resolved, stop fluids 5. Hypertension - Cont home meds. May need to adjust regimen if BP continues to be elevated, will monitor. 6. GERD - Cont home meds 7. Hyperlipidemia - Cont home meds 8. Frequent falls - 3 falls this week, likely due to orthostasis. PT/OT DVT: Lovenox Dispo: Awaiting NH placement for rehab. Pending insurance approval Review Statement Review Statement: I have personally discussed and reviewed the patient's visit/currently labs/imaging/decision making with Dr. Arroyo, my supervising attending. Greater that 50 minutes spent with patient, 50% of the time spent with this gonzalez ent was devoted to counseling and coordination of care.
[2023-06-19 05:22] LABS: BASOPHILS % (AUTO) 0.3 % (0.0-3.0); EOSINOPHILS # (AUTO) 0.1 K/ul (0.0-0.7); EOSINOPHILS % (AUTO) 2.3 % (0.0-7.0); HEMATOCRIT 34.1 % (37.0-47.0); HEMOGLOBIN 11.2 g/dl (12.0-16.0); IMMATURE GRANULOCYTE % (AUTO) 0.2 % (0.0-5.0); LYMPHOCYTES # (AUTO) 1.9 K/uL (0.60-3.4); LYMPHOCYTES % (AUTO) 30.6 (10.0-50.0); MEAN CORPUSCULAR HEMOGLOBIN 33.1 pg (27.0-31.0); MEAN CORPUSCULAR HGB CONC 32.8 (31.8-35.4); MEAN CORPUSCULAR VOLUME 100.9 fl (81.0-99.0); MONOCYTES # (AUTO) 0.6 K/uL (0.4-2.0); MONOCYTES % (AUTO) 9.1 (0-10); NEUTROPHILS # (AUTO) 3.5 K/ul (2.0-6.9); NEUTROPHILS % (AUTO) 57.5 % (42.2-75.2); PLATELET COUNT 150 10^3/uL (140-440); RDW COEFFICIENT OF VARIATION 13.3 % (11.6-14.8); RED BLOOD COUNT 3.38 10^6/ul (4.20-5.40); WHITE BLOOD COUNT 6.05 K/ul (4.6-10.2)
[2023-06-19 05:41] VITALS: TEMP 97.5
[2023-06-19 05:47] LABS: ALBUMIN 3.08 g/dL (3.5-5.0); ALKALINE PHOSPHATASE 46.4 U/L (53-141); ASPARTATE AMINO TRANSFERASE 45.6 U/L (14-36); BILIRUBIN,TOTAL 0.66 mg/dL (0.2-1.3); BLOOD UREA NITROGEN 21.6 mg/dL (7-17); CALCIUM 8.37 mg/dL (8.4-10.2); CARBON DIOXIDE 25.2 mmol/L (22-30.0); CHLORIDE 107.9 mmol/L (98-107); CREATININE 1.08 mg/dL (0.60-1.30); GLUCOSE 109.4 mg/dL (74-106); POTASSIUM 3.79 mmol/L (3.5-5.1); SODIUM 135.4 mmol/L (134.5-145); TOTAL PROTEIN 5.56 g/dL (6.3-8.2)
[2023-06-19 10:09] VITALS: BP 161/74; PULSE 56; RESP 16
--- NOTE | 2023-06-19 10:36 | DCSUM ---
Admission Date Admission Date: 06/13/23 Discharge Date Discharge Date: 06/19/23 Admission Diagnosis Admission Diagnosis: 1. Orthostatic hypotension 2. CAD with recent cardiac cath 3. AIDAN, stage I 4. Hypertension 5. GERD 6. Hyperlipidemia 7. Frequent falls Discharge Diagnosis Discharge Diagnosis: 1. Orthostatic hypotension - Improved. Per Dr. Waddell can hold imdur as this may be contributing. Fluids d/c'd 06/14. Ranexa dose decreased due to CrCl. Cont new hose. Fall precautions. PT/OT. 2. CAD with recent cardiac cath - Plan for PCI in next couple weeks. Cont asa and plavix. 3. Bradycardia - Improved. Could be contributing to symptoms/falls. HR dipped into 30s, was consistently 40s on 06/13. Restarted cardizem 06/14 at half the dose. 4. AIDAN, stage I - Resolved, stop fluids 5. Hypertension - Cont home meds. May need to adjust regimen if BP continues to be elevated, will monitor. 6. GERD - Cont home meds 7. Hyperlipidemia - Cont home meds 8. Frequent falls Hospital Provider Hospital Provider: CAROLYN HAYWARD [facility]-C, [facility] Primary Care Physician Primary Care Physician: TARA QUESADA MD Summary of History and Physical Summary of History and Physical: Patient is an 88 year old female from home who presented to ER with fall. Patient has reportedly fallen 3x this week, including hitting her head and left elbow. She states that she just feels like her legs give out. She reported to nursing she sometimes gets dizzy and nauseated. It is a new problem in the last week or two. Recent changes include a cardiac cath on 06/04 showing severe multivessel CAD with plan to return to label maker in 1-2 weeks for PCI to the left main/LAD, +/- RCA pending her renal function. She has in the meantime been increased to Ranexa 1000 mg bid and added imdur 30 mg daily. Plavix was also added to her daily asa. In the ER ct head, chest, x rays of left shoulder and elbow were all negative. Labs overall unremarkable. Family worries about safety at home with new frequent falls and recent addition of plavix. She lives at home alone. Patient admitted to [facility] for further evaluation. She was found to have orthostatic hypotension, systolic dropping from 142 to 91 with standing. She was also very symptomatic with this, asking to sit down due to dizziness/weakness. Hospital Course Subjective: Patient treated for orthostatic hypotension with gentle hydration with LR@75mL/hr. Stopped on 06/14. Dr. Waddell negative developer consulted due to recent changes in medications. Recommended decreasing ranexa dose to 500 mg BID due to CrCl and stopping the imdur. New hose have also been worn. Mild AIDAN stage 1 noted as well. She was also found to have bradycardia dropping into 30s at times and consistently in the 40s on 06/13. Cardizem restarted on 06/14 at half the dose and has tolerated well. Orthostatic hypotension resolved with above changes and fluids. She has worked well with PT/OT during stay. Planned to d/c to SNF for skilled services. Family agreeable to take home under their supervision with home health until insurance approval of SNF services at this time. She would benefit from further PT/OT for strengthening and balance. No further changes to home medications unless otherwise mentioned. Appearance: Pleasant, No Apparent Distress and Alert HEENT: MMM, Supple and No JVD CVS: No Murmur and No Rubs Abdomen: Soft, Non-Tender and No Distention Respiratory: No Dyspnea Extremities: No Edema Vital Signs: Most Recent Vital Signs Temperature 97.5 F L 06/19/23 10:00 Temperature Source Temporal Artery Scan 06/19/23 10:00 Temperature Source Infrared 06/13/23 00:44 Pulse Rate 56 L 06/19/23 10:00 Respiratory Rate 16 06/19/23 10:00 Blood Pressure 161/74 H 06/19/23 10:00 Blood Pressure Mean 103 06/19/23 10:00 Blood Pressure Left Arm 161/83 06/13/23 09:10 Blood Pressure Location Left Arm 06/19/23 10:00 Blood Pressure Position Supine 06/19/23 05:38 O2 Sat by Pulse Oximetry 96 06/19/23 10:00 Oxygen Delivery Method Room Air 06/19/23 10:00 Height 5 ft 5 in 06/19/23 09:44 Weight 140 lb 8 oz 06/19/23 09:44 Telemetry Type Bedside Monitor 06/19/23 07:00 Telemetry Monitoring Continues 06/19/23 07:00 Telemetry Number 9 12/23/12 07:00 Telemetry Heart Rate 57 L 06/19/23 07:00 Telemetry SPO2 93 12/06/15 07:00 EKG AK Interval 0.13 06/19/23 07:00 EKG QRS Interval 0.09 06/19/23 07:00 Telemetry Strip Reading bradycardia sinus rhythm 06/19/23 07:00 Lab Results Last 24 Hours: 06/19/23 05:13 WBC 6.05 RBC 3.38 L Hgb 11.2 L Hct 34.1 L MCV 100.9 H MCH 33.1 H MCHC 32.8 RDW Coeff of Christopher 13.3 Plt Count 150 Immature Gran % (Auto) 0.2 Neut % (Auto) 57.5 Lymph % (Auto) 30.6 [place] % (Auto) 9.1 Eos % (Auto) 2.3 Baso % (Auto) 0.3 Neut # (Auto) 3.5 Lymph # (Auto) 1.9 [place] # (Auto) 0.6 Eos # (Auto) 0.1 Baso # (Auto) 0.0 Immature Gran # (Auto) 0.0 Sodium 135.4 Potassium 3.79 Chloride 107.9 H Carbon Dioxide 25.2 Anion Gap 6.09 BUN 21.6 H Creatinine 1.08 Estimated GFR (MDRD) 48.00 BUN/Creatinine Ratio 20.00 Glucose 109.4 H Calcium 8.37 L Total Bilirubin 0.66 AST 45.6 H ALT 33.0 Alkaline Phosphatase 46.4 L Total Protein 5.56 L Albumin 3.08 L Globulin 2.48 Albumin/Globulin Ratio 1.24 Discharge Instructions Discharge Planning: Discharge Planning > 40 minutes If patient is discharged with left ventricular systolic dysfunction: NA Discharged with a beta olga? [] If no, why not? [] Discharged with an nasir/arb? [] If no, why not? [] DX: ORTHOSTATIC HYPOTENSION, BRADYCARDIA RX: DILTIAZEM, RANEXA REGULAR DIET ACTIVITY TOLERATED PT/OT FOLLOW-UP WITH PCP NEXT WEEK Discharge Medications: Medications at Discharge (Home Meds & RX) acetaminophen 500 mg tablet (Tylenol Extra Strength) 1,000 mg PO Q6HR PRN Pain 08/10/19 diclofenac sodium 1 % topical gel 2 g topical QID PRN leg cramp #100 grams 04/24/22 fluticasone propionate 50 mcg/actuation nasal spray,suspension 1 spray intranasal DAILY PRN allergy symptoms 04/24/22 omega 6-vro-qky-fish oil 1,000 mg (120 mg-180 mg) capsule (Fish Oil) 1 cap PO DAILY 04/24/22 pantoprazole 40 mg tablet,delayed release See Rx Instructions .Route .COMPLEX #90 tabs 10/30/22 diltiazem HCl 240 mg capsule,extended release 24 hr See Rx Instructions .Route .COMPLEX #90 caps 02/20/23 montelukast 10 mg tablet See Rx Instructions .Route .COMPLEX #90 tabs 02/20/23 lisinopril 20 mg tablet See Rx Instructions .Route .COMPLEX #180 tabs 03/15/23 rosuvastatin 40 mg tablet See Rx Instructions .Route .COMPLEX #90 tabs 03/15/23 aspirin 81 mg tablet,delayed release 81 mg PO QDAY #30 tabs 04/24/23 ezetimibe 10 mg tablet See Rx Instructions .Route .COMPLEX #90 tabs 05/07/23 hydroxyzine HCl 25 mg tablet See Rx Instructions .Route .COMPLEX #60 tabs nitroglycerin 0.4 mg sublingual tablet See Rx Instructions .Route .COMPLEX #30 tabs 05/24/23 albuterol sulfate 2.5 mg/3 mL (0.083 %) solution for nebulization See Rx Instructions .Route .COMPLEX 06/13/23 amitriptyline 25 mg tablet 25 mg PO DAILY 06/13/23 cholecalciferol (vitamin D3) 10 mcg (400 unit) capsule 10 mcg PO DAILY 06/13/23 clopidogrel 75 mg tablet 75 mg PO DAILY 06/13/23 famotidine 10 mg tablet 10 mg PO BID 06/13/23 isosorbide mononitrate 30 mg tablet,extended release 24 hr 30 mg PO DAILY 06/13/23 ranolazine 1,000 mg tablet,extended release,12 hr 1,000 mg PO BID 06/13/23 Discharge Plan Discharge Discharge Orders: Discharge Patient (ONCE); Ordered 06/19/23 Ordered By: ABRIL BARKSDALE Activity Restrictions/Additional Instructions: Regular diet Activity as tolerated Continue new hose during daytime, take off at night Follow-up with PCP next week. Home health PT/OT Medication Changes: Stop taking: * Isosorbide (Imdur) Dosage change with new prescriptions sent: * Diltiazem (Cardizem) 120 mg daily * Ranolazine (Ranexa) 500 mg twice a day Instructions: Hypotension (GEN) Care Plan Goals: Problem: Risk for falls Goal: No falls or injury Instructions: Have no throw rugs on the floor Make sure pathway is clear of all objects Use assistance devices if applicable Problem: Low blood pressure Goal: Medically managed blood pressure Instructions: Monitor blood pressure as needed Monitor for signs/symptoms of low blood pressure Review medication related to blood pressure Patient Disposition: HOME WITH FAMILY CARE Prescriptions: New diltiazem HCl [Cardizem CD] 120 mg Capsule,Extended Release 24hr 120 mg PO DAILY Qty: 30 0RF ranolazine 500 mg Tablet Extended Release 12 Hr 500 mg PO BID Qty: 60 0RF Continued pantoprazole 40 mg tablet,delayed release (DR/EC) See Rx Instructions .ROUTE .COMPLEX Qty: 90 1RF Dose Instruction: TAKE ONE (1) TABLET BY MOUTH DAILY Rx Instructions: TAKE ONE (1) TABLET BY MOUTH DAILY montelukast 10 mg tablet See Rx Instructions .ROUTE .COMPLEX Qty: 90 1RF Dose Instruction: TAKE ONE (1) TABLET BY MOUTH EVERY DAY Rx Instructions: TAKE ONE (1) TABLET BY MOUTH EVERY DAY rosuvastatin 40 mg tablet See Rx Instructions .ROUTE .COMPLEX Qty: 90 1RF Dose Instruction: TAKE ONE (1) TABLET BY MOUTH EVERY DAY Rx Instructions: TAKE ONE (1) TABLET BY MOUTH EVERY DAY lisinopril 20 mg tablet See Rx Instructions .ROUTE .COMPLEX Qty: 180 1RF Dose Instruction: TAKE ONE (1) TABLET BY MOUTH TWICE DAILY Rx Instructions: TAKE ONE (1) TABLET BY MOUTH TWICE DAILY ezetimibe 10 mg tablet See Rx Instructions .ROUTE .COMPLEX Qty: 90 1RF Dose Instruction: TAKE ONE (1) TABLET BY MOUTH EVERY DAY Rx Instructions: TAKE ONE (1) TABLET BY MOUTH EVERY DAY hydroxyzine HCl 25 mg tablet See Rx Instructions .ROUTE .COMPLEX Qty: 60 2RF Dose Instruction: TAKE ONE (1) TABLET BY MOUTH TWICE A DAY NEEDED FOR ANXIETY Rx Instructions: TAKE ONE (1) TABLET BY MOUTH TWICE A DAY NEEDED FOR ANXIETY nitroglycerin 0.4 mg tablet, sublingual See Rx Instructions .ROUTE .COMPLEX Qty: 30 2RF Dose Instruction: TAKE ONE (1) TABLET SUBLINGUALLY EVERY 5 TO 15 MINUTES NEEDED FOR CHEST PAIN; DO NOT EXCEED 3 DOSES PER EPISODE Rx Instructions: TAKE ONE (1) TABLET SUBLINGUALLY EVERY 5 TO 15 MINUTES NEEDED FOR CHEST PAIN; DO NOT EXCEED 3 DOSES PER EPISODE clopidogrel 75 mg tablet 75 mg PO DAILY famotidine 10 mg tablet 10 mg PO BID cholecalciferol (vitamin D3) 10 mcg (400 unit) capsule 10 mcg PO DAILY albuterol sulfate 2.5 mg /3 mL (0.083 %) solution for nebulization See Rx Instructions .ROUTE .COMPLEX Rx Instructions: USE ONE (1) VIAL BY NEBULIZER 2 TIMES DAILY amitriptyline 25 mg tablet 25 mg PO DAILY Rx Instructions: Take 1 tab by mouth every night acetaminophen [Tylenol Extra Strength] 500 mg Tablet 1,000 mg PO Q6HR PRN (Reason: Pain) aspirin 81 mg tablet,delayed release (DR/EC) 81 mg PO QDAY Qty: 30 2RF omega 8-iyg-zql-fish oil [Fish Oil] 1,000 mg (120 mg-180 mg) capsule 1 cap PO DAILY Rx Instructions: Take 1 cap by mouth daily with breakfast fluticasone propionate 50 mcg/actuation spray,suspension 1 spray intranasal DAILY PRN (Reason: allergy symptoms) Rx Instructions: administer into each nostril diclofenac sodium 1 % gel 2 g topical QID PRN (Reason: leg cramp) Qty: 100 0RF Rx Instructions: apply cream to left leg 2 times daily as needed Discontinued diltiazem HCl 240 mg capsule,extended release 24hr See Rx Instructions .ROUTE .COMPLEX Qty: 90 1RF Dose Instruction: TAKE ONE (1) CAPSULE BY MOUTH DAILY Rx Instructions: TAKE ONE (1) CAPSULE BY MOUTH DAILY isosorbide mononitrate 30 mg tablet extended release 24 hr 30 mg PO DAILY ranolazine 1,000 mg tablet extended release 12 hr 1,000 mg PO BID Did you review [place] [employer] for ALL controlled substances?: No Discussed opioids are addictive and Narcan is available by prescription or from pharmacy.: No Condition: Stable
== END 2023-06-19 11:42 | disposition home or self-care (01) | DRG 92 ==
LOC: ED 23:52 → MEDSURG B 23:52
PROVIDERS: ADMIT Hospitalist; ATTEND Physician Assistant
DX: I10 Essential (primary) hypertension; E86.0 Dehydration; S09.90XA Unspecified injury of head, initial encounter; Z74.1 Need for assistance with personal care; R53.1 Weakness; E78.5 Hyperlipidemia, unspecified; Z20.822 Contact with and (suspected) exposure to COVID-19; Z51.81 Encounter for therapeutic drug level monitoring; K21.9 Gastro-esophageal reflux disease without esophagitis; N18.9 Chronic kidney disease, unspecified; S50.02XA Contusion of left elbow, initial encounter; Z98.890 Other specified postprocedural states; R41.82 Altered mental status, unspecified; Z79.899 Other long term (current) drug therapy; Z79.02 Long term (current) use of antithrombotics/antiplatelets; N17.9 Acute kidney failure, unspecified; I25.10 Atherosclerotic heart disease of native coronary artery without angina pectoris; R00.1 Bradycardia, unspecified; K59.00 Constipation, unspecified; R29.6 Repeated falls; I95.1 Orthostatic hypotension; W19.XXXA Unspecified fall, initial encounter